=== PATIENT | female | born 1935 | race Caucasian/White ===

== ENCOUNTER 2017-09-13 20:43 | Emergency (ER) | payer MEDICARE, OTHER ==
[2017-09-13] MEDS ORDERED: Diphtheria/Tetanus Toxoids,Adult (Td) 0.5 ML Syringe IM ONE (21:07)
--- NOTE | 2017-09-13 21:24 | EDM.PDOC ---
ED HPI GENERAL MEDICAL PROBLEM - General Chief Complaint: Head Injury Stated Complaint: PT FELL AND HURT HEAD Time Seen by Provider: 09/13/17 21:00 Source of Information: Reports: Patient, Family, RN - History of Present Illness INITIAL COMMENTS - FREE TEXT/NARRATIVE: She tripped and fell about 7 hours ago. she suffered a scalp laceration. NO LOC. NO impaired mentation noted no vomiting no gait disturbance. - Related Data Allergies Allergy/AdvReac Type Severity Reaction Status Date / Time morphine Allergy Vomiting Verified 09/13/17 20:53 Home Meds: Home Meds Lisinopril 30 mg PO DAILY 07/14/14 [History] Metoprolol Succinate [Toprol XL 50mg] 50 mg PO DAILY 07/14/14 [History] rOPINIRole [Requip XL] 2 mg PO DAILY 07/14/14 [History] Past Medical History - Past Health History Medical/Surgical History: Denies Medical/Surgical History Cardiovascular 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: Hypertension, Other (See Below) Other Cardiovascular History: elevated heart rate Respiratory 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: None Gastrointestinal 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: None Neurological 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: None Endocrine/Metabolic 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: None Dermatologic 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: None - Past Surgical History GI Surgical 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: None Endocrine Surgical 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: None Social & Family History - Tobacco Use Smoking Status *Q: Current Every Day Smoker Years of Tobacco use: 55 Packs/Tins Daily: 0.4 - Alcohol Use Days Per Week of Alcohol Use: 0 - Recreational Drug Use Recreational Drug Use: No ED ROS GENERAL - Review of Systems Review Of Systems: See Below (no other injury reported.) ED EXAM, HEAD INJURY - Physical Exam Exam: See Below Text/Narrative:: alert neck supple and non tender gait normal extremities without pain normal speech no facial or oral injuries EOMS normal mid parietal scalp with a 2 cm transverse laceration to subcutaneous tissue. ED LACERATION/WOUND & SAMANTHA PROC - Additional/Other Procedure(s) Other (Free Text) Procedure(s): wound cleansed and closed adequately with dermabond Course - Vital Signs Last Recorded V/S: Last Vital Signs Temp 97 F 09/13/17 20:54 Pulse 65 09/13/17 20:54 Resp 20 09/13/17 20:54 BP 140/66 09/13/17 20:54 Pulse Ox 98 09/13/17 20:54 - Orders/Labs/Meds Orders: Active Orders 24 hr Category Date Time Status Vaccines to be Administered [RC] PER UNIT ROUTINE Care 09/13/17 21:07 Active Head wo Cont [CT] Stat Exams 09/13/17 20:58 Taken Meds: Medications Discontinued Medications Generic Name Dose Route Start Last Admin Trade Name Sharmin PRN Reason Stop Dose Admin Octyl Cyanoacrylate 1 applic 09/13/17 21:53 09/13/17 22:03 Dermabond Advance TOP 09/13/17 21:54 1 applic ONETIME ONE Administration Tetanus/Diphtheria Toxoids 0.5 ml 09/13/17 21:07 09/13/17 21:29 Tenivac IM 09/13/17 21:08 0.5 ml .ONCE ONE Administration Departure - Departure Time of Disposition: 22:05 Disposition: Home, Self-Care 01 Condition: Fair Clinical Impression: Laceration of scalp - Discharge Information Referrals: PCP,None [Primary Care Provider] - Forms: ED Department Discharge Additional Instructions: may gently wash hair tomorrow recheck for vomiting, confusion or signs of infection - My Orders Last 24 Hours: My Active Orders 09/13/17 20:58 Head wo Cont [CT] Stat 09/13/17 21:07 Vaccines to be Administered [RC] PER UNIT ROUTINE - Assessment/Plan Last 24 Hours: My Active Orders 09/13/17 20:58 Head wo Cont [CT] Stat 09/13/17 21:07 Vaccines to be Administered [RC] PER UNIT ROUTINE
[2017-09-13] MEDS ORDERED: Octyl 2-Cyanoacrylate 1 Tube TOP ONE (21:53)
--- NOTE | 2017-09-14 11:07 | CT ---
EXAM DATE: 09/13/17 PATIENT'S AGE: 81 Patient: RADHA PETER Facility: [place], [place] Site . Site : [id number] Study: CT Head [id number] 9:27:50 PM Ordering Physician: Ana Reyes Final Report: INDICATION: fall, injury, laceration to scalp CT HEAD WITHOUT CONTRAST TECHNIQUE: Multiple axial CT images were performed through the head without intravenous contrast administration. COMPARISON: No previous studies are currently available for comparison. FINDINGS: No acute intracranial hemorrhage is identified. No extra-axial collections are evident and there is no mass effect or midline shift. There is mild diffuse age-related brain atrophy. Ventricular size and configuration are within normal limits for the patient`s age. Sibley-white differentiation is within normal limits. There is patchy hypodensity in the periventricular white matter, a nonspecific finding which most likely reflects chronic small vessel ischemic change. Intracranial atherosclerotic vascular calcifications are noted. There is a very small scalp hematoma over the left forehead and a small scalp laceration anterior to the vertex. Osseous structures are within normal limits and no fractures are seen. Included portions of the paranasal sinuses and mastoid air cells are normally aerated. IMPRESSION: 1. No acute intracranial abnormality identified. 2. Small frontal scalp hematoma and laceration. No fracture identified. 3. Age-related brain atrophy, white matter hypodensity consistent with chronic small vessel ischemic change, and intracranial atherosclerotic vascular calcifications. CARLOS SHARP MD [employer] Dictated by Henry Sharp MD @ 09/13/2017 9:53:46 PM Dictated by: Henry Sharp MD @ 09/13/2017 21:56:01 (Electronic Signature) Report Signed by Proxy. [facility]
== END 2017-09-13 22:13 | disposition home or self-care (01) ==
LOC: MW.ED 20:43
DX: S01.01XA Laceration without foreign body of scalp, initial encounter (principal); F17.210 Nicotine dependence, cigarettes, uncomplicated; I10 Essential (primary) hypertension; Z79.899 Other long term (current) drug therapy; Z88.5 Allergy status to narcotic agent; Z23 Encounter for immunization; W01.0XXA Fall on same level from slipping, tripping and stumbling without subsequent striking against object, initial encounter
CPT/HCPCS: 12001; 70450; 90714; 99283; A9270; 90471

== ENCOUNTER 2019-08-04 15:58 | Emergency (ER) | payer MEDICARE, OTHER ==
[2019-08-04] MEDS ORDERED: Albuterol/Ipratropium 3.0-0.5 MG/3 ML Neb Soln NEB ONE (16:13)
[2019-08-04] MEDS ORDERED: methylPREDNISolone Sodium Succinate 125 MG/2 ML SDV IVPUSH ONE (16:21)
--- NOTE | 2019-08-04 16:26 | EDM.PDOC ---
ED HPI GENERAL MEDICAL PROBLEM - General Chief Complaint: Respiratory Problem Stated Complaint: SHORTNESS OF BREATH, COUGH Time Seen by Provider: 08/04/19 16:03 Source of Information: Reports: Patient History Limitations: Reports: No Limitations - History of Present Illness INITIAL COMMENTS - FREE TEXT/NARRATIVE: HISTORY AND PHYSICAL: History of present illness: Patient is an 83-year-old female presents to the ED today with concern of shortness of breath and cough 3-4 days. Patient states she has a history of COPD and has home oxygen at home but does not use this unless needed. Patient states that she hasn't needed the oxygen and quite some time except over the past couple days with the onset of the cough. Patient states she does continue to smoke but has not been able to since onset of symptoms. Patient states she also feels more tired than usual but denies any other symptoms or concerns. Patient denies fever, chills, chest pain. Denies headache, neck stiff ness, change in vision, syncope, or near syncope. Denies nausea, vomiting, abdominal pain, diarrhea, constipation, or dysuria. Has not noted any blood in urine or stool. Patient has been eating and drinking appropriately. Review of systems: As per history of present illness and below otherwise all systems reviewed and negative. Past medical history: As per history of present illness and as reviewed below otherwise noncontributory. Surgical history: As per history of present illness and as reviewed below otherwise noncontributory. Social history: See social history for further information Family history: As per history of present illness and as reviewed below otherwise noncontributory. Physical exam: General: Patient is alert, oriented, and in no acute distress. Patient sitting comfortably on exam table. HEENT: Atraumatic, normocephalic, pupils equal and reactive bilaterally, negative for conjunctival pallor or scleral icterus, mucous membranes moist, TMs normal bilaterally, throat clear, neck supple, nontender, trachea midline. No drooling or trismus noted. No meningeal signs. No hot potato voice noted. Lungs: Tachypneic, diminished lung sounds, but clear to auscultation, breath sounds equal bilaterally, chest nontender. Heart: Distant but S1S2, regular rate and rhythm without overt murmur Abdomen: Soft, nondistended, nontender. Negative for masses or hepatosplenomegaly. Negative for costovertebral tenderness. Pelvis: Stable nontender. Genitourinary: Deferred. Rectal: Deferred. Skin: Intact, warm, dry. No lesions or rashes noted. Extremities: Atraumatic, negative for cords or calf pain. Neurovascular unremarkable. 2+ bilateral pitting edema of lower extremities to the knees. Neuro: Awake, alert, oriented. Cranial nerves II through XII unremarkable. Cerebellum unremarkable. Motor and sensory unremarkable throughout. Exam nonfocal. Notes: Dr. Conner verbally involved in patient care. 81% on RA upon arrival. Placed on 4L NC and Duoneb started. Patient now 93% on 4L NC. Admission for observation was offered but patient refuses. All risks versus benefits discussed with patient and expresses understanding. Patient says she has a nebulizer machine at home as well and she has her albuterol inhalers. She also has home oxygen available to her. Voices understanding and is agreeable to plan of care. Denies any further questions or concerns at this time. Diagnostics: CBC, CMP, EKG, chest x-ray, BNP, troponin, PT/INR (Patient refuses UA) Therapeutics: DuoNeb, oxygen, Solumedrol Prescription: Azithromycin, Prednisone, Duonebs Impression: COPD exacerbation Hypoxia Plan: 1. Use your home oxygen at 4 L continuously. 2. Take medication as prescribed. You can also use Tylenol as directed for pain and discomfort. 3. Follow up with your primary care provider in one week as discussed. Return to the ED as needed and as discussed and if symptoms worsen or persist. Definitive disposition and diagnosis as appropriate pending reevaluation and review of above. - Related Data Allergies Allergy/AdvReac Type Severity Reaction Status Date / Time morphine Allergy Vomiting Verified 08/04/19 16:16 Home Meds: Home Meds Lisinopril 30 mg PO DAILY 07/14/14 [History] Metoprolol Succinate [Toprol XL 50mg] 50 mg PO DAILY 07/14/14 [History] rOPINIRole [Requip XL] 2 mg PO DAILY 07/14/14 [History] Past Medical History - Past Health History Medical/Surgical History: Denies Medical/Surgical History Cardiovascular 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: Hypertension, Other (See Below) Other Cardiovascular History: elevated heart rate Respiratory 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: Bronchitis, Recurrent, COPD Gastrointestinal 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: None Neurological 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: None Endocrine/Metabolic 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: None Oncologic (Cancer) 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: None Dermatologic 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: None - Infectious Disease History Infectious Disease 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: Chicken Pox, Measles, Mumps - Past Surgical History GI Surgical 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: None Endocrine Surgical 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: None Social & Family History - Family History Family Medical History: Noncontributory - Tobacco Use Smoking Status *Q: Current Every Day Smoker Years of Tobacco use: 60 Packs/Tins Daily: 0.5 - Caffeine Use Caffeine Use: Reports: None - Recreational Drug Use Recreational Drug Use: No ED ROS GENERAL - Review of Systems Review Of Systems: ROS reveals no pertinent complaints other than HPI. ED EXAM, GENERAL - Physical Exam Exam: See Below (See dictation) Course - Vital Signs Last Recorded V/S: Last Vital Signs Temp 36.7 C 08/04/19 16:14 Pulse 96 08/04/19 16:56 Resp 20 08/04/19 16:14 BP 117/62 08/04/19 16:56 Pulse Ox 93 L 08/04/19 16:56 - Orders/Labs/Meds Orders: Active Orders 24 hr Category Date Time Status EKG Documentation Completion [RC] STAT Care 08/04/19 16:13 Active RT Aerosol Therapy [RC] ASDIRECTED Care 08/04/19 16:13 Active UA RFX VANI AND CULT IF INDIC [URIN] Stat Lab 08/04/19 16:22 Stop Req Saline Lock Insert [OM.PC] Stat Oth 08/04/19 16:18 Ordered Labs: Laboratory Tests 08/04/19 08/04/19 08/04/19 Range/Units 16:30 16:30 16:30 WBC 11.75 H (4.0-11.0) K/uL RBC 4.50 (4.30-5.90) M/uL Hgb 13.4 (12.0-16.0) g/dL Hct 41.5 (36.0-46.0) % MCV 92.2 (80.0-98.0) fL MCH 29.8 (27.0-32.0) pg MCHC 32.3 (31.0-37.0) g/dL RDW Std Deviation 49.1 (28.0-62.0) fl RDW Coeff of Dorinda 14 (11.0-15.0) % Plt Count 120 L (150-400) K/uL MPV 13.50 H (7.40-12.00) fL Neut % (Auto) 83.7 H (48.0-80.0) % Lymph % (Auto) 6.3 L (16.0-40.0) % Banner % (Auto) 9.6 (0.0-15.0) % Eos % (Auto) 0.2 (0.0-7.0) % Baso % (Auto) 0.2 (0.0-1.5) % Neut # (Auto) 9.8 H (1.4-5.7) K/uL Lymph # (Auto) 0.7 (0.6-2.4) K/uL Banner # (Auto) 1.1 H (0.0-0.8) K/uL Eos # (Auto) 0.0 (0.0-0.7) K/uL Baso # (Auto) 0.0 (0.0-0.1) K/uL Nucleated RBC % 0.0 /100WBC Nucleated RBCs # 0 K/uL INR 1.12 Sodium 139 (136-145) mmol/L Potassium 3.5 (3.5-5.1) mmol/L Chloride 103 (98-107) mmol/L Carbon Dioxide 27.6 (21.0-32.0) mmol/L BUN 29 H (7.0-18.0) mg/dL Creatinine 1.1 H (0.6-1.0) mg/dL Est Cr Clr Drug Dosing 37.02 mL/min Estimated GFR (MDRD) 47.3 ml/min Glucose 124 H (74-106) mg/dL Calcium 8.7 (8.5-10.1) mg/dL Total Bilirubin 1.3 H (0.2-1.0) mg/dL AST 15 (15-37) IU/L ALT 13 L (14-63) IU/L Alkaline Phosphatase 120 H (46-116) U/L Troponin I < 0.050 (0.000-0.056) ng/mL B-Natriuretic Peptide (<100) PG/ML Total Protein 6.8 (6.4-8.2) g/dL Albumin 2.9 L (3.4-5.0) g/dL Globulin 3.9 (2.6-4.0) g/dL Albumin/Globulin Ratio 0.7 L (0.9-1.6) 08/04/19 Range/Units 16:30 WBC (4.0-11.0) K/uL RBC (4.30-5.90) M/uL Hgb (12.0-16.0) g/dL Hct (36.0-46.0) % MCV (80.0-98.0) fL MCH (27.0-32.0) pg MCHC (31.0-37.0) g/dL RDW Std Deviation (28.0-62.0) fl RDW Coeff of Dorinda (11.0-15.0) % Plt Count (150-400) K/uL MPV (7.40-12.00) fL Neut % (Auto) (48.0-80.0) % Lymph % (Auto) (16.0-40.0) % Banner % (Auto) (0.0-15.0) % Eos % (Auto) (0.0-7.0) % Baso % (Auto) (0.0-1.5) % Neut # (Auto) (1.4-5.7) K/uL Lymph # (Auto) (0.6-2.4) K/uL Banner # (Auto) (0.0-0.8) K/uL Eos # (Auto) (0.0-0.7) K/uL Baso # (Auto) (0.0-0.1) K/uL Nucleated RBC % /100WBC Nucleated RBCs # K/uL INR Sodium (136-145) mmol/L Potassium (3.5-5.1) mmol/L Chloride (98-107) mmol/L Carbon Dioxide (21.0-32.0) mmol/L BUN (7.0-18.0) mg/dL Creatinine (0.6-1.0) mg/dL Est Cr Clr Drug Dosing mL/min Estimated GFR (MDRD) ml/min Glucose (74-106) mg/dL Calcium (8.5-10.1) mg/dL Total Bilirubin (0.2-1.0) mg/dL AST (15-37) IU/L ALT (14-63) IU/L Alkaline Phosphatase (46-116) U/L Troponin I (0.000-0.056) ng/mL B-Natriuretic Peptide 189 H (<100) PG/ML Total Protein (6.4-8.2) g/dL Albumin (3.4-5.0) g/dL Globulin (2.6-4.0) g/dL Albumin/Globulin Ratio (0.9-1.6) Meds: Medications Discontinued Medications Generic Name Dose Route Start Last Admin Trade Name Sharmin PRN Reason Stop Dose Admin Albuterol/Ipratropium 3 ml 08/04/19 16:13 08/04/19 16:19 Duoneb 3.0-0.5 Mg/3 Ml NEB 08/04/19 16:14 3 ml ONETIME ONE Administration Methylprednisolone Sodium Succinate 125 mg 08/04/19 16:21 08/04/19 16:47 Solu-Medrol IVPUSH 08/04/19 16:22 125 mg ONETIME ONE Administration Departure - Departure Time of Disposition: 17:53 Disposition: Home, Self-Care 01 Clinical Impression: COPD exacerbation, Hypoxia - Discharge Information Instructions: Chronic Obstructive Pulmonary Disease Exacerbation, [id number] , Hypoxia Referrals: PCP,Unknown [Primary Care Provider] - Forms: ED Department Discharge Additional Instructions: The following information is given to patients seen in the emergency department who are being discharged to home. This information is to outline your options for follow-up care. We provide all patients seen in our emergency department with a follow-up referral. The need for follow-up, as well as the timing and circumstances, are variable depending upon the specifics of your emergency department visit. If you don't have a primary care physician on staff, we will provide you with a referral. We always advise you to contact your personal physician following an emergency department visit to inform them of the circumstance of the visit and for follow-up with them and/or the need for any referrals to a consulting specialist. The emergency department will also refer you to a specialist when appropriate. This referral assures that you have the opportunity for follow-up care with a specialist. All of these measure are taken in an effort to provide you with optimal care, which includes your follow-up. Under all circumstances we always encourage you to contact your private physician who remains a resource for coordinating your care. When calling for follow-up care, please make the office aware that this follow-up is from your recent emergency room visit. If for any reason you are refused follow-up, please contact the [facility] Emergency Department at and asked to speak to the emergency department charge nurse. [facility] [address] [place] [address] [facility] [address] [place] [id number] 1. Use your home oxygen at 4 L continuously. 2. Take medication as prescribed. You can also use Tylenol as directed for pain and discomfort. 3. Follow up with your primary care provider in one week as discussed. Return to the ED as needed and as discussed and if symptoms worsen or persist. - My Orders Last 24 Hours: My Active Orders 08/04/19 16:13 EKG Documentation Completion [RC] STAT RT Aerosol Therapy [RC] ASDIRECTED 08/04/19 16:18 Saline Lock Insert [OM.PC] Stat 08/04/19 16:22 UA RFX VANI AND CULT IF INDIC [URIN] Stat - Assessment/Plan Last 24 Hours: My Active Orders 08/04/19 16:13 EKG Documentation Completion [RC] STAT RT Aerosol Therapy [RC] ASDIRECTED 08/04/19 16:18 Saline Lock Insert [OM.PC] Stat 08/04/19 16:22 UA RFX VANI AND CULT IF INDIC [URIN] Stat
--- NOTE | 2019-08-04 17:23 | CR ---
INDICATION: Shortness of breath HISTORY: Shortness of breath. COMPARISON: None. TECHNIQUE: Chest one-view portable. FINDINGS: Interstitial type opacities are present in both lungs, most confluent in the right lower lung zone. There is an indeterminate, 2.4 cm opacity inferior to the left scapula laterally. CT of the chest may be obtained to clarify this finding. Atherosclerotic calcifications of the thoracic aorta. Heart size is enlarged, but may be exaggerated by portable technique. Lateral costophrenic sulci are sharp. IMPRESSION: 1. Indeterminate nodular opacity in the left mid lung zone. Consider CT scan to further assess. 2. Course, asymmetric interstitial type opacities, which may reflect pulmonary fibrosis. No comparison exam is available for review. Dictated by Gonzalo Meng MD @ 08/04/2019 5:21:13 PM Dictated by: Gonzalo Meng MD @ 08/04/2019 17:21:22 (Electronically Signed)
[2019-08-04 17:27] LABS: BLOOD UREA NITROGEN,BUN 29 mg/dL (7.0-18.0); CARBON DIOXIDE,CO2 27.6 mmol/L (21.0-32.0); CHLORIDE,CL 103 mmol/L (98-107); GLUCOSE RANDOM 124 mg/dL (74-106); POTASSIUM,K 3.5 mmol/L (3.5-5.1); SODIUM,NA 139 mmol/L (136-145)
== END 2019-08-04 18:13 | disposition home or self-care (01) ==
LOC: MW.ED 15:58
DX: J44.1 Chronic obstructive pulmonary disease with (acute) exacerbation (principal); R09.02 Hypoxemia; I10 Essential (primary) hypertension; F17.210 Nicotine dependence, cigarettes, uncomplicated; Z88.5 Allergy status to narcotic agent; Z79.899 Other long term (current) drug therapy
CPT/HCPCS: 71045; 80053; 83880; 84484; 85025; 85610; 94640; 96374; 99285; J2930; 93005; 99284; J7620-GY

== ENCOUNTER 2019-08-08 17:51 | Inpatient (IN) | payer MEDICARE, OTHER ==
[2019-08-08] MEDS ORDERED: Sodium Chloride 0.9% 2.5 ML Syringe FLUSH PRN (17:58)
[2019-08-08] MEDS ORDERED: Sodium Chloride 0.9% 10 ML Syringe FLUSH PRN (17:58)
--- NOTE | 2019-08-08 18:02 | EDM.PDOC ---
ED HPI GENERAL MEDICAL PROBLEM - General Stated Complaint: PT WEAK Time Seen by Provider: 08/08/19 17:58 Source of Information: Reports: Patient History Limitations: Reports: No Limitations - History of Present Illness INITIAL COMMENTS - FREE TEXT/NARRATIVE: HISTORY AND PHYSICAL: History of present illness: Patient is an 83-year-old female who presents to the emergency room with complaints of weakness and shortness of breath. Patient was seen in our emergency room on 08/04/19 for these complaints and had been offered admission for COPD exacerbation and pneumonia. She declined admission and was discharged to home with azithromycin and Prednisone. She states since being home she has had increased weakness and has not felt any improvement. Patient denies any fever, chills, headache, change in vision, syncope or near syncope. Denies any chest pain, back pain, or neck pain. Denies any abdominal pain, nausea, vomiting , diarrhea, constipation or dysuria. Has not noted any blood in urine or stool. Patient has had decreased oral intake. Review of systems: As per history of present illness and below otherwise all systems reviewed and negative. Past medical history: As per history of present illness and as reviewed below otherwise noncontributory. Surgical history: As per history of present illness and as reviewed below otherwise noncontributory. Social history: See social history for further information Family history: As per history of present illness and as reviewed below otherwise noncontributory. Physical exam: General: Well-developed, alert and oriented 83-year-old female. Nontoxic appearing and in no acute distress. HEENT: Atraumatic, normocephalic, pupils equal and reactive bilaterally, negative for conjunctival pallor or scleral icterus, mucous membranes moist, trachea midline. No drooling or trismus noted. No meningeal signs. No hot potato voice noted. Lungs: Diminished throughout, dry nonproductive cough noted, chest nontender. Heart: S1S2, regular rate and rhythm without overt murmur Abdomen: Soft, nondistended, nontender. Negative for masses or hepatosplenomegaly. Negative for costovertebral tenderness. Pelvis: Stable nontender. Skin: Intact, warm, dry. No lesions or rashes noted. Extremities: Atraumatic, moves all extremities per self without difficulty or deficits, no pedal edema noted. Neurovascular unremarkable. Neuro: Awake, alert, oriented. Cranial nerves II through XII unremarkable. Cerebellum unremarkable. Motor and sensory unremarkable throughout. Exam nonfocal. Notes: Oxygen sats are 79% on room air. Patient does bump up to low 90s with 2 L per nasal cannula. Chest x-rays shows no changes, moderate angular infiltrate in the right lung base. 2.6 cm nodular density in the left lateral lower chest. Dr. Solares was consulted on this case. He is agreeable to admitting this patient for further care and management. Patient is aware and agreeable. She denies any further questions, vital signs remain stable. Diagnostics: CBC, CMP, Blood Cultures, ABG, CXR, Troponin, EKG, UA Therapeutics: IV fluids, Solu-Medrol, Duo Neb, Rocephin Impression: RLQ pneumonia Hypoxemia Plan: Inpatient admission to med/surg Definitive disposition and diagnosis as appropriate pending reevaluation and review of above. - Related Data Allergies Allergy/AdvReac Type Severity Reaction Status Date / Time morphine Allergy Vomiting Verified 08/08/19 18:13 Home Meds: Home Meds Lisinopril 30 mg PO DAILY 07/14/14 [History] Metoprolol Succinate [Toprol XL 50mg] 50 mg PO DAILY 07/14/14 [History] rOPINIRole [Requip XL] 2 mg PO DAILY 07/14/14 [History] Past Medical History - Past Health History Medical/Surgical History: Denies Medical/Surgical History Cardiovascular 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: Hypertension, Other (See Below) Other Cardiovascular History: elevated heart rate Respiratory 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: Bronchitis, Recurrent, COPD Gastrointestinal 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: None Neurological 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: None Endocrine/Metabolic 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: None Oncologic (Cancer) 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: None Dermatologic 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: None - Infectious Disease History Infectious Disease 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: Chicken Pox, Measles, Mumps - Past Surgical History GI Surgical 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: None Endocrine Surgical 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: None Social & Family History - Family History Family Medical History: Noncontributory - Caffeine Use Caffeine Use: Reports: None ED ROS GENERAL - Review of Systems Review Of Systems: ROS reveals no pertinent complaints other than HPI. ED EXAM, GENERAL - Physical Exam Exam: See Below (See dictation) Course - Vital Signs Last Recorded V/S: Last Vital Signs Temp 97.7 F 08/08/19 18:10 Pulse 78 08/08/19 19:04 Resp 20 08/08/19 19:04 BP 151/88 H 08/08/19 19:04 Pulse Ox 95 08/08/19 19:04 - Orders/Labs/Meds Orders: Active Orders 24 hr Category Date Time Status Admission Status [Patient Status] [ADT] Stat ADT 08/08/19 18:48 Active EKG Documentation Completion [RC] STAT Care 08/08/19 17:58 Active RT Aerosol Therapy [RC] ASDIRECTED Care 08/08/19 18:30 Active CULTURE BLOOD [BC] Stat Lab 08/08/19 18:22 Results CULTURE BLOOD [BC] Stat Lab 08/08/19 18:40 Received UA RFX VANI AND CULT IF INDIC [URIN] Stat Lab 08/08/19 17:58 Ordered Sodium Chloride 0.9% [Normal Saline] 1,000 ml Med 08/08/19 18:30 Active IV STAT Sodium Chloride 0.9% [Saline Flush] Med 08/08/19 17:58 Active 10 ml FLUSH ASDIRECTED PRN Sodium Chloride 0.9% [Saline Flush] Med 08/08/19 17:58 Active 2.5 ml FLUSH ASDIRECTED PRN Blood Culture x2 Reflex Set [OM.PC] Stat Oth 08/08/19 17:59 Ordered Saline Lock Insert [OM.PC] Stat Oth 08/08/19 17:58 Ordered Medication Orders Sodium Chloride (Normal Saline) 1,000 mls @ 125 mls/hr IV STAT ONE Stop: 08/09/19 02:29 Last Admin: 08/08/19 18:35 Dose: 125 mls/hr Sodium Chloride (Saline Flush) 10 ml FLUSH ASDIRECTED PRN PRN Reason: Keep Vein Open Last Admin: 08/08/19 18:35 Dose: 10 ml Sodium Chloride (Saline Flush) 2.5 ml FLUSH ASDIRECTED PRN PRN Reason: Keep Vein Open Last Admin: 08/08/19 18:35 Dose: 2.5 ml Labs: Laboratory Tests 08/08/19 08/08/19 08/08/19 Range/Units 18:22 18:22 18:45 WBC 10.30 (4.0-11.0) K/uL RBC 4.59 (4.30-5.90) M/uL Hgb 13.3 (12.0-16.0) g/dL Hct 42.4 (36.0-46.0) % MCV 92.4 (80.0-98.0) fL MCH 29.0 (27.0-32.0) pg MCHC 31.4 (31.0-37.0) g/dL RDW Std Deviation 47.4 (28.0-62.0) fl RDW Coeff of Dorinda 14 (11.0-15.0) % Plt Count 167 (150-400) K/uL MPV 12.20 H (7.40-12.00) fL Neut % (Auto) 78.0 (48.0-80.0) % Lymph % (Auto) 13.8 L (16.0-40.0) % [place] % (Auto) 7.6 (0.0-15.0) % Eos % (Auto) 0.4 (0.0-7.0) % Baso % (Auto) 0.2 (0.0-1.5) % Neut # (Auto) 8.0 H (1.4-5.7) K/uL Lymph # (Auto) 1.4 (0.6-2.4) K/uL [place] # (Auto) 0.8 (0.0-0.8) K/uL Eos # (Auto) 0.0 (0.0-0.7) K/uL Baso # (Auto) 0.0 (0.0-0.1) K/uL Nucleated RBC % 0.0 /100WBC Nucleated RBCs # 0 K/uL ABG pH 7.426 (7.35-7.45) ABG pCO2 50 H (35-45) mmHG ABG pO2 85 (75-100) mmHG ABG HCO3 33 H (22-26) mEq/L ABG Total CO2 29.7 ABG Base Excess 7.1 H (-2.0-2.0) Sodium 142 (136-145) mmol/L Potassium 4.0 (3.5-5.1) mmol/L Chloride 103 (98-107) mmol/L Carbon Dioxide 30.6 (21.0-32.0) mmol/L BUN 17 (7.0-18.0) mg/dL Creatinine 0.8 (0.6-1.0) mg/dL Est Cr Clr Drug Dosing 50.90 mL/min Estimated GFR (MDRD) > 60.0 ml/min Glucose 91 (74-106) mg/dL Calcium 8.7 (8.5-10.1) mg/dL Total Bilirubin 0.5 (0.2-1.0) mg/dL AST 21 (15-37) IU/L ALT 18 (14-63) IU/L Alkaline Phosphatase 94 (46-116) U/L Troponin I < 0.050 (0.000-0.056) ng/mL Total Protein 6.7 (6.4-8.2) g/dL Albumin 2.8 L (3.4-5.0) g/dL Globulin 3.9 (2.6-4.0) g/dL Albumin/Globulin Ratio 0.7 L (0.9-1.6) Meds: Medications Generic Name Dose Route Start Last Admin Trade Name Vinhq PRN Reason Stop Dose Admin Sodium Chloride 1,000 mls @ 125 mls/hr 08/08/19 18:30 08/08/19 18:35 Normal Saline IV 08/09/19 02:29 125 mls/hr STAT ONE Administration Sodium Chloride 10 ml 08/08/19 17:58 08/08/19 18:35 Saline Flush FLUSH 10 ml ASDIRECTED PRN Administration Keep Vein Open Sodium Chloride 2.5 ml 08/08/19 17:58 08/08/19 18:35 Saline Flush FLUSH 2.5 ml ASDIRECTED PRN Administration Keep Vein Open Discontinued Medications Generic Name Dose Route Start Last Admin Trade Name Sharmin PRN Reason Stop Dose Admin Albuterol/Ipratropium 3 ml 08/08/19 18:30 08/08/19 18:35 Duoneb 3.0-0.5 Mg/3 Ml NEB 08/08/19 18:31 3 ml ONETIME ONE Administration Ceftriaxone Sodium/Dextrose 1 50 mls @ 100 mls/hr 08/08/19 18:40 08/08/19 18: 48 gm/ Premix IV 08/08/19 19:09 100 mls/hr ONETIME ONE Administration Methylprednisolone Sodium Succinate 125 mg 08/08/19 18:30 08/08/19 18:35 Solu-Medrol IVPUSH 08/08/19 18:31 125 mg ONETIME ONE Administration Departure - Departure Time of Disposition: 19:22 Disposition: Admitted As Inpatient 65 Clinical Impression: Hypoxia Right lower lobe pneumonia Qualifiers: Pneumonia type: due to unspecified organism Qualified Code(s): J18.1 - Lobar pneumonia, unspecified organism - Discharge Information Referrals: Charlie Sepulveda MD [Primary Care Provider] - - My Orders Last 24 Hours: My Active Orders 08/08/19 17:58 EKG Documentation Completion [RC] STAT UA RFX VANI AND CULT IF INDIC [URIN] Stat Sodium Chloride 0.9% [Saline Flush] 10 ml FLUSH ASDIRECTED PRN Sodium Chloride 0.9% [Saline Flush] 2.5 ml FLUSH ASDIRECTED PRN Saline Lock Insert [OM.PC] Stat 08/08/19 17:59 Blood Culture x2 Reflex Set [OM.PC] Stat 08/08/19 18:22 CULTURE BLOOD [BC] Stat 08/08/19 18:30 RT Aerosol Therapy [RC] ASDIRECTED Sodium Chloride 0.9% [Normal Saline] 1,000 ml IV STAT 08/08/19 18:40 CULTURE BLOOD [BC] Stat 08/08/19 18:48 Admission Status [Patient Status] [ADT] Stat - Assessment/Plan Last 24 Hours: My Active Orders 08/08/19 17:58 EKG Documentation Completion [RC] STAT UA RFX VANI AND CULT IF INDIC [URIN] Stat Sodium Chloride 0.9% [Saline Flush] 10 ml FLUSH ASDIRECTED PRN Sodium Chloride 0.9% [Saline Flush] 2.5 ml FLUSH ASDIRECTED PRN Saline Lock Insert [OM.PC] Stat 08/08/19 17:59 Blood Culture x2 Reflex Set [OM.PC] Stat 08/08/19 18:22 CULTURE BLOOD [BC] Stat 08/08/19 18:30 RT Aerosol Therapy [RC] ASDIRECTED Sodium Chloride 0.9% [Normal Saline] 1,000 ml IV STAT 08/08/19 18:40 CULTURE BLOOD [BC] Stat 08/08/19 18:48 Admission Status [Patient Status] [ADT] Stat
[2019-08-08] MEDS ORDERED: methylPREDNISolone Sodium Succinate 125 MG/2 ML SDV IVPUSH ONE (18:30)
[2019-08-08] MEDS ORDERED: Sodium Chloride 0.9% 1,000 ML IV ONE (18:30)
[2019-08-08] MEDS ORDERED: Albuterol/Ipratropium 3.0-0.5 MG/3 ML Neb Soln NEB ONE (18:30)
[2019-08-08] MEDS ORDERED: cefTRIAXone 1 GM in Premix Bag 1 BAG IV ONE (18:40)
--- NOTE | 2019-08-08 18:51 | CR ---
HISTORY: Shortness of breath COMPARISON: 08/04/2019 FINDINGS: A portable erect AP view of the chest was obtained at 1822 hours. There has been no change in the appearance of the chest. There continue to be moderate reticular infiltrate in the right lung base and milder reticular infiltrates throughout the rest of the right lung and in the left perihilar lung. There is no change in the well-circumscribed calcific density in the left lateral lower lung measuring up to 2.6 centimeters in diameter. This could be a calcified granuloma or a calcified pleural plaque. Recommend correlation with two view examination of the chest along with shallow oblique views to further characterize this finding. It is possible that this is something on the patient`s skin, so marking of any nodules on the skin would be helpful. The heart remains mildly enlarged. The mediastinum is otherwise normal in appearance. Again seen is mild scoliosis of the inferior thoracic spine convex towards the right. 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 IMPRESSION: No change in the appearance of the chest. No change in moderate reticular infiltrate in the right lung base with milder reticular infiltrate throughout the rest of the right lung and in the left perihilar region. Again seen is the nodular 2.6 centimeter density in the left lateral lower chest. Please see the discussion above. Dictated by Sandeep Moser MD @ Aug 08 2019 6:44PM Signed by Dr. Sandeep Moser @ Aug 08 2019 6:49PM
[2019-08-08 19:11] LABS: BLOOD UREA NITROGEN,BUN 17 mg/dL (7.0-18.0); CARBON DIOXIDE,CO2 30.6 mmol/L (21.0-32.0); CHLORIDE,CL 103 mmol/L (98-107); GLUCOSE RANDOM 91 mg/dL (74-106); SODIUM,NA 142 mmol/L (136-145)
[2019-08-08] MEDS ORDERED: Albuterol/Ipratropium 3.0-0.5 MG/3 ML Neb Soln NEB PRN (21:25)
[2019-08-08] MEDS ORDERED: Acetaminophen 325 MG Tab PO PRN (21:25)
--- NOTE | 2019-08-08 21:31 | PCM.HP.2 ---
H&P History of Present Illness - General Date of Service: 08/08/19 Admit Problem/Dx: Admission Diagnosis/Problem Admission Diagnosis/Problem Pneumonia - History of Present Illness Initial Comments - Free Text/Narative: 83 yo female with pmh of HTN and COPD who presents with one week history of nonproductive cough, shortness of breath, fevers and generalized weakness. She was seen in the ED two day sago and declined admision she was sent home with azithromycin and prednisone. She is back in the ED complaining of same symptoms but is agreeable for admission for one night. - Related Data Allergies/Adverse Reactions: Allergies Allergy/AdvReac Type Severity Reaction Status Date / Time morphine Allergy Vomiting Verified 08/08/19 20:39 Home Medications: Home Meds Lisinopril 30 mg PO DAILY 07/14/14 [History] Metoprolol Succinate [Toprol XL 50mg] 50 mg PO DAILY 07/14/14 [History] Albuterol [Ventolin HFA] 1 puff .XX Q4HR PRN 08/09/19 [History] Azithromycin 250 mg PO DAILY 08/09/19 [History] Diclofenac Sodium [Diclofenac Sodium ER] 50 mg PO TID PRN 08/09/19 [History] Ipratropium/Albuterol Sulfate [Iprat-Albut 0.5-3(2.5) mg/3 ml] 3 ml IH Q4HR PRN 08/09/19 [History] predniSONE [Prednisone] 20 mg PO DAILY 08/09/19 [History] rOPINIRole [Requip] 2 mg PO BID 08/09/19 [History] Past Medical History - Past Health History Medical/Surgical History: Denies Medical/Surgical History Cardiovascular 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: Hypertension, Other (See Below) Other Cardiovascular History: elevated heart rate Respiratory 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: Bronchitis, Recurrent, COPD, SOB Gastrointestinal 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: None Genitourinary 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: None [employer] 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: Musculoskeletal 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: Osteoarthritis Neurological 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: None Endocrine/Metabolic 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: None Oncologic (Cancer) 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: None Dermatologic 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: None - Infectious Disease History Infectious Disease 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: Chicken Pox, Measles, Mumps - Past Surgical History GI Surgical 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: Colonoscopy, Polypectomy Female Surgical 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: Hysterectomy, Salpingo-Oophorectomy Endocrine Surgical 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: None Musculoskeletal Surgical 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: Hip Replacement, Knee Replacement Other Musculoskeletal Surgeries/Procedures:: bilateral hip replacement, left knee replacement Social & Family History - Family History Family Medical History: Noncontributory - Tobacco Use Smoking Status *Q: Current Every Day Smoker Years of Tobacco use: 60 Packs/Tins Daily: 0.2 - Caffeine Use Caffeine Use: Reports: Coffee Caffeine Use Comment: 3-4 cups a day - Recreational Drug Use Recreational Drug Use: No H&P Review of Systems - Review of Systems: Review Of Systems: ROS reveals no pertinent complaints other than HPI. Exam - Exam Exam: See Below - Vital Signs Vital Signs: Last Vital Signs Temp 36.7 C 08/08/19 20:27 Pulse 77 08/08/19 20:27 Resp 20 08/08/19 20:27 BP 156/70 H 08/08/19 20:27 Pulse Ox 92 L 08/08/19 20:27 Weight: 62 kg - Exam General: Alert, Oriented HEENT: Mucosa Moist & [place] Lungs: Normal Respiratory Effort, Rhonchi (rigth upper lobe) Cardiovascular: Regular Rate, Regular Rhythm GI/Abdominal Exam: Soft, Non-Tender Extremities: Non-Tender, No Pedal Edema Skin: Warm, Dry, Intact Neurological: Cranial Nerves Intact - Patient Data Lab Results Last 24 hrs: Laboratory Results - last 24 hr 08/08/19 08/08/19 08/08/19 Range/Units 18:22 18:22 18:45 WBC 10.30 (4.0-11.0) K/uL RBC 4.59 (4.30-5.90) M/uL Hgb 13.3 (12.0-16.0) g/dL Hct 42.4 (36.0-46.0) % MCV 92.4 (80.0-98.0) fL MCH 29.0 (27.0-32.0) pg MCHC 31.4 (31.0-37.0) g/dL RDW Std Deviation 47.4 (28.0-62.0) fl RDW Coeff of Dorinda 14 (11.0-15.0) % Plt Count 167 (150-400) K/uL MPV 12.20 H (7.40-12.00) fL Neut % (Auto) 78.0 (48.0-80.0) % Lymph % (Auto) 13.8 L (16.0-40.0) % [place] % (Auto) 7.6 (0.0-15.0) % Eos % (Auto) 0.4 (0.0-7.0) % Baso % (Auto) 0.2 (0.0-1.5) % Neut # (Auto) 8.0 H (1.4-5.7) K/uL Lymph # (Auto) 1.4 (0.6-2.4) K/uL [place] # (Auto) 0.8 (0.0-0.8) K/uL Eos # (Auto) 0.0 (0.0-0.7) K/uL Baso # (Auto) 0.0 (0.0-0.1) K/uL Nucleated RBC % 0.0 /100WBC Nucleated RBCs # 0 K/uL ABG pH 7.426 (7.35-7.45) ABG pCO2 50 H (35-45) mmHG ABG pO2 85 (75-100) mmHG ABG HCO3 33 H (22-26) mEq/L ABG Total CO2 29.7 ABG Base Excess 7.1 H (-2.0-2.0) Sodium 142 (136-145) mmol/L Potassium 4.0 (3.5-5.1) mmol/L Chloride 103 (98-107) mmol/L Carbon Dioxide 30.6 (21.0-32.0) mmol/L BUN 17 (7.0-18.0) mg/dL Creatinine 0.8 (0.6-1.0) mg/dL Est Cr Clr Drug Dosing 50.90 mL/min Estimated GFR (MDRD) > 60.0 ml/min Glucose 91 (74-106) mg/dL Calcium 8.7 (8.5-10.1) mg/dL Total Bilirubin 0.5 (0.2-1.0) mg/dL AST 21 (15-37) IU/L ALT 18 (14-63) IU/L Alkaline Phosphatase 94 (46-116) U/L Troponin I < 0.050 (0.000-0.056) ng/mL Total Protein 6.7 (6.4-8.2) g/dL Albumin 2.8 L (3.4-5.0) g/dL Globulin 3.9 (2.6-4.0) g/dL Albumin/Globulin Ratio 0.7 L (0.9-1.6) Result Diagrams: 08/09/19 05:20 08/09/19 05:20 Mahad Results Last 24 hrs: Microbiology 08/08/19 18:22 Anaerobic Blood Culture - Final Blood - Venous Problem List Initiated/Reviewed/Updated: Yes Orders Last 24hrs: Active Orders 24 hr Category Date Time Status Admission Status [Patient Status] [ADT] Stat ADT 08/08/19 18:48 Active EKG Documentation Completion [RC] STAT Care 08/08/19 17:58 Active RT Aerosol Therapy [RC] ASDIRECTED Care 08/08/19 18:30 Active Regular Diet [DIET] Diet 08/09/19 Breakfast Active CULTURE BLOOD [BC] Stat Lab 08/08/19 18:22 Results CULTURE BLOOD [BC] Stat Lab 08/08/19 18:40 Received UA RFX MAHAD AND CULT IF INDIC [URIN] Stat Lab 08/08/19 17:58 Ordered Doxycycline [Vibramycin] 100 mg Med 08/08/19 21:30 Ordered Sodium Chloride 0.9% [Normal Saline] 100 ml IV Q12H Lisinopril [Lisinopril] Med 08/09/19 09:00 Ordered 30 mg PO DAILY Metoprolol Succinate [Toprol XL] Med 08/09/19 09:00 Ordered 50 mg PO DAILY Sodium Chloride 0.9% [Normal Saline] 1,000 ml Med 08/08/19 18:30 Active IV STAT Sodium Chloride 0.9% [Saline Flush] Med 08/08/19 17:58 Active 10 ml FLUSH ASDIRECTED PRN Sodium Chloride 0.9% [Saline Flush] Med 08/08/19 17:58 Active 2.5 ml FLUSH ASDIRECTED PRN cefTRIAXone [Rocephin] Med 08/09/19 19:00 Ordered 1 gm IVPUSH Q24H rOPINIRole [Requip XL] Med 08/09/19 09:00 Ordered 2 mg PO DAILY Blood Culture x2 Reflex Set [OM.PC] Stat Oth 08/08/19 17:59 Ordered Saline Lock Insert [OM.PC] Stat Oth 08/08/19 17:58 Ordered Medication Orders Ceftriaxone Sodium (Rocephin) 1 gm IVPUSH Q24H MARTHA Sodium Chloride (Normal Saline) 1,000 mls @ 125 mls/hr IV STAT ONE Stop: 08/09/19 02:29 Last Admin: 08/08/19 18:35 Dose: 125 mls/hr Doxycycline Hyclate 100 mg/ (Sodium Chloride) 100 mls @ 100 mls/hr IV Q12H MARTHA Metoprolol Succinate (Toprol Xl) 50 mg PO DAILY MARTHA Non-Formulary Medication (Lisinopril [Lisinopril]) 30 mg PO DAILY MARTHA Non-Formulary Medication (Ropinirole [Requip Xl]) 2 mg PO DAILY MARTHA Sodium Chloride (Saline Flush) 10 ml FLUSH ASDIRECTED PRN PRN Reason: Keep Vein Open Last Admin: 08/08/19 18:35 Dose: 10 ml Sodium Chloride (Saline Flush) 2.5 ml FLUSH ASDIRECTED PRN PRN Reason: Keep Vein Open Last Admin: 08/08/19 18:35 Dose: 2.5 ml Assessment/Plan Comment:: 83 yo old female admitted for community acquired pneumonia. We will treat with Rocephin and doxycycline. Ct scan of chest has been ordered to further evaluate chest x-ray findings.
[2019-08-08] MEDS: Heparin Sodium 5,000 Units/ML Vial SUBCUT SCH (22:22)
[2019-08-08] MEDS: Doxycycline 100 MG in Sodium Chloride 0.9% 100 ML IV SCH (22:24)
[2019-08-09 05:46] LABS: BLOOD UREA NITROGEN,BUN 17 mg/dL (7.0-18.0); CARBON DIOXIDE,CO2 30.6 mmol/L (21.0-32.0); CHLORIDE,CL 107 mmol/L (98-107); GLUCOSE RANDOM 195 mg/dL (74-106); POTASSIUM,K 4.3 mmol/L (3.5-5.1); SODIUM,NA 143 mmol/L (136-145)
[2019-08-09] MEDS: Heparin Sodium 5,000 Units/ML Vial SUBCUT SCH ×3 (05:51→21:29)
--- NOTE | 2019-08-09 08:03 | CT ---
INDICATION: Lung nodule TECHNIQUE: CT chest without contrast. COMPARISON: 10/07/2018 FINDINGS: Lungs and pleura: Irregular 1.3 cm ground-glass nodule in the left upper lobe on series 202, image 18 is unchanged. New cluster of small inflammatory nodules in the posterior lateral right upper lobe on image 34. New peripheral inflammatory changes are also present in the anterior inferior base of the right upper lobe and left upper lobe visualized on image 60. 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 New small bilateral pleural effusions with adjacent passive atelectasis. Heart and vasculature: Stable mild cardiomegaly. Great vessels are normal in caliber.Coronary artery atherosclerosis is present. Mild pericardial thickening or trace effusion is new or slightly increased. Lymph nodes/mediastinum: No mediastinal, hilar, or axillary adenopathy. Stable nodular enlargement of the left thyroid lobe with intrathoracic extension. Chest wall: No masses. Upper abdomen: Normal. Bones: Unremarkable for age. IMPRESSION: 1. Stable irregular 1.3 cm ground-glass nodule left upper lobe. Continued CT surveillance is recommended. 2. 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 3. No areas of peripheral inflammation or infection are present in both upper lobes. 4. Slight interval prominence of mild pericardial thickening or trace effusion. [employer] - SUBSOLID NODULES: GROUND GLASS - nodule less than 6 mm: No routine follow-up. - nodule greater than 6 mm: CT at 6-12 months to confirm persistence, then CT every 2 years until 5 years. Please note that all CT scans at this facility use dose modulation, iterative reconstruction, and/or weight-based dosing when appropriate to reduce radiation dose to as low as reasonably achievable. Dictated by Del Linares MD @ Aug 09 2019 7:43AM Signed by Dr. Del Linares @ Aug 09 2019 8:02AM
[2019-08-09] MEDS: Metoprolol Succinate 50 MG Tab.ER PO SCH (08:45)
[2019-08-09] MEDS: Lisinopril 10 MG Tab PO SCH (08:46)
[2019-08-09] MEDS: rOPINIRole 1 MG Tab PO SCH ×2 (08:46→21:31)
[2019-08-09] MEDS ORDERED: ROPINIROLE 2 MG PO SCH (09:00)
[2019-08-09] MEDS: Doxycycline 100 MG in Sodium Chloride 0.9% 100 ML IV SCH ×3 (10:45→21:46)
--- NOTE | 2019-08-09 10:59 | PCM.PN ---
- General Info Date of Service: 08/09/19 - Review of Systems Systems Review Comment:: feeling better, is wanting to go home. She did have palpitations this morning with EKG showing SVT of HR of 150s - Patient Data Vitals - Most Recent: Last Vital Signs Temp 36.6 C 08/09/19 04:00 Pulse 120 H 08/09/19 08:45 Resp 18 08/09/19 04:00 BP 117/68 08/09/19 08:46 Pulse Ox 92 L 08/09/19 04:00 Weight - Most Recent: 62 kg I&O - Last 24 Hours: Intake & Output 08/08/19 08/09/19 08/09/19 22:59 06:59 14:59 Intake Total 100 1280 Output Total 120 Balance 100 1160 Lab Results Last 24 Hours: Laboratory Results - last 24 hr 08/08/19 08/08/19 08/08/19 Range/Units 18:22 18:22 18:45 WBC 10.30 (4.0-11.0) K/uL RBC 4.59 (4.30-5.90) M/uL Hgb 13.3 (12.0-16.0) g/dL Hct 42.4 (36.0-46.0) % MCV 92.4 (80.0-98.0) fL MCH 29.0 (27.0-32.0) pg MCHC 31.4 (31.0-37.0) g/dL RDW Std Deviation 47.4 (28.0-62.0) fl RDW Coeff of Dorinda 14 (11.0-15.0) % Plt Count 167 (150-400) K/uL MPV 12.20 H (7.40-12.00) fL Neut % (Auto) 78.0 (48.0-80.0) % Lymph % (Auto) 13.8 L (16.0-40.0) % [place] % (Auto) 7.6 (0.0-15.0) % Eos % (Auto) 0.4 (0.0-7.0) % Baso % (Auto) 0.2 (0.0-1.5) % Neut # (Auto) 8.0 H (1.4-5.7) K/uL Lymph # (Auto) 1.4 (0.6-2.4) K/uL [place] # (Auto) 0.8 (0.0-0.8) K/uL Eos # (Auto) 0.0 (0.0-0.7) K/uL Baso # (Auto) 0.0 (0.0-0.1) K/uL Nucleated RBC % 0.0 /100WBC Nucleated RBCs # 0 K/uL ABG pH 7.426 (7.35-7.45) ABG pCO2 50 H (35-45) mmHG ABG pO2 85 (75-100) mmHG ABG HCO3 33 H (22-26) mEq/L ABG Total CO2 29.7 ABG Base Excess 7.1 H (-2.0-2.0) Sodium 142 (136-145) mmol/L Potassium 4.0 (3.5-5.1) mmol/L Chloride 103 (98-107) mmol/L Carbon Dioxide 30.6 (21.0-32.0) mmol/L BUN 17 (7.0-18.0) mg/dL Creatinine 0.8 (0.6-1.0) mg/dL Est Cr Clr Drug Dosing 50.90 mL/min Estimated GFR (MDRD) > 60.0 ml/min Glucose 91 (74-106) mg/dL Calcium 8.7 (8.5-10.1) mg/dL Total Bilirubin 0.5 (0.2-1.0) mg/dL AST 21 (15-37) IU/L ALT 18 (14-63) IU/L Alkaline Phosphatase 94 (46-116) U/L Troponin I < 0.050 (0.000-0.056) ng/mL Total Protein 6.7 (6.4-8.2) g/dL Albumin 2.8 L (3.4-5.0) g/dL Globulin 3.9 (2.6-4.0) g/dL Albumin/Globulin Ratio 0.7 L (0.9-1.6) Urine Color Urine Appearance Urine pH (5.0-8.0) Ur Specific [place] (1.001-1.035) Urine Protein (NEGATIVE) mg/dL Urine Glucose (UA) (NEGATIVE) mg/dL Urine Ketones (NEGATIVE) mg/dL Urine Occult Blood (NEGATIVE) Urine Nitrite (NEGATIVE) Urine Bilirubin (NEGATIVE) Urine Urobilinogen (<2.0) EU/dL Ur Leukocyte Esterase (NEGATIVE) 08/08/19 08/09/19 08/09/19 Range/Units 23:45 05:20 05:20 WBC 5.22 (4.0-11.0) K/uL RBC 4.22 L (4.30-5.90) M/uL Hgb 12.4 (12.0-16.0) g/dL Hct 38.7 (36.0-46.0) % MCV 91.7 (80.0-98.0) fL MCH 29.4 (27.0-32.0) pg MCHC 32.0 (31.0-37.0) g/dL RDW Std Deviation 46.9 (28.0-62.0) fl RDW Coeff of Dorinda 14 (11.0-15.0) % Plt Count 159 (150-400) K/uL MPV 11.10 (7.40-12.00) fL Neut % (Auto) 86.6 H (48.0-80.0) % Lymph % (Auto) 11.5 L (16.0-40.0) % [place] % (Auto) 1.7 (0.0-15.0) % Eos % (Auto) 0.0 (0.0-7.0) % Baso % (Auto) 0.2 (0.0-1.5) % Neut # (Auto) 4.5 (1.4-5.7) K/uL Lymph # (Auto) 0.6 (0.6-2.4) K/uL [place] # (Auto) 0.1 (0.0-0.8) K/uL Eos # (Auto) 0.0 (0.0-0.7) K/uL Baso # (Auto) 0.0 (0.0-0.1) K/uL Nucleated RBC % 0.0 /100WBC Nucleated RBCs # 0 K/uL ABG pH (7.35-7.45) ABG pCO2 (35-45) mmHG ABG pO2 (75-100) mmHG ABG HCO3 (22-26) mEq/L ABG Total CO2 ABG Base Excess (-2.0-2.0) Sodium 143 (136-145) mmol/L Potassium 4.3 (3.5-5.1) mmol/L Chloride 107 (98-107) mmol/L Carbon Dioxide 30.6 (21.0-32.0) mmol/L BUN 17 (7.0-18.0) mg/dL Creatinine 0.7 (0.6-1.0) mg/dL Est Cr Clr Drug Dosing 58.18 mL/min Estimated GFR (MDRD) > 60.0 ml/min Glucose 195 H (74-106) mg/dL Calcium 7.9 L (8.5-10.1) mg/dL Total Bilirubin (0.2-1.0) mg/dL AST (15-37) IU/L ALT (14-63) IU/L Alkaline Phosphatase (46-116) U/L Troponin I (0.000-0.056) ng/mL Total Protein (6.4-8.2) g/dL Albumin (3.4-5.0) g/dL Globulin (2.6-4.0) g/dL Albumin/Globulin Ratio (0.9-1.6) Urine Color YELLOW Urine Appearance CLEAR Urine pH 6.0 (5.0-8.0) Ur Specific [place] 1.020 (1.001-1.035) Urine Protein NEGATIVE (NEGATIVE) mg/dL Urine Glucose (UA) NEGATIVE (NEGATIVE) mg/dL Urine Ketones 15 H (NEGATIVE) mg/dL Urine Occult Blood NEGATIVE (NEGATIVE) Urine Nitrite NEGATIVE (NEGATIVE) Urine Bilirubin NEGATIVE (NEGATIVE) Urine Urobilinogen 2.0 H (<2.0) EU/dL Ur Leukocyte Esterase NEGATIVE (NEGATIVE) Mahad Results Last 24 Hours: Microbiology 08/08/19 18:22 Anaerobic Blood Culture - Final Blood - Venous Med Orders - Current: Current Medications Acetaminophen (Tylenol) 650 mg PO Q4H PRN PRN Reason: Pain (Mild 1-3)/fever Albuterol/Ipratropium (Duoneb 3.0-0.5 Mg/3 Ml) 3 ml NEB Q4HRRT PRN PRN Reason: Shortness Of Breath/wheezing Heparin Sodium (Porcine) (Heparin Sodium) 5,000 units SUBCUT Q8H [facility] Last Admin: 08/09/19 05:51 Dose: 5,000 units Ceftriaxone Sodium/Dextrose 1 (gm/ Premix) 50 mls @ 100 mls/hr IV Q24H [facility] Doxycycline Hyclate 100 mg/ (Sodium Chloride) 100 mls @ 100 mls/hr IV Q12H [facility] Last Admin: 08/09/19 10:45 Dose: 100 mls/hr Lisinopril (Prinivil) 30 mg PO DAILY [facility] Last Admin: 08/09/19 08:46 Dose: 30 mg Metoprolol Succinate (Toprol Xl) 50 mg PO DAILY [facility] Last Admin: 08/09/19 08:45 Dose: 50 mg Ropinirole HCl (Requip) 2 mg PO BID [facility] Last Admin: 08/09/19 08:46 Dose: 2 mg Sodium Chloride (Saline Flush) 10 ml FLUSH ASDIRECTED PRN PRN Reason: Keep Vein Open Last Admin: 08/08/19 18:35 Dose: 10 ml Sodium Chloride (Saline Flush) 2.5 ml FLUSH ASDIRECTED PRN PRN Reason: Keep Vein Open Last Admin: 08/08/19 18:35 Dose: 2.5 ml Discontinued Medications Albuterol/Ipratropium (Duoneb 3.0-0.5 Mg/3 Ml) 3 ml NEB ONETIME ONE Stop: 08/08/19 18:31 Last Admin: 08/08/19 18:35 Dose: 3 ml Ceftriaxone Sodium (Rocephin) 1 gm IVPUSH Q24H [facility] Sodium Chloride (Normal Saline) 1,000 mls @ 125 mls/hr IV STAT ONE Stop: 08/09/19 02:29 Last Admin: 08/08/19 18:35 Dose: 125 mls/hr Ceftriaxone Sodium/Dextrose 1 (gm/ Premix) 50 mls @ 100 mls/hr IV ONETIME ONE Stop: 08/08/19 19:09 Last Admin: 08/08/19 18:48 Dose: 100 mls/hr Doxycycline Hyclate 100 mg/ (Sodium Chloride) 100 mls @ 100 mls/hr IV Q12H [facility] Last Admin: 08/09/19 10:45 Dose: Not Given Methylprednisolone Sodium Succinate (Solu-Medrol) 125 mg IVPUSH ONETIME ONE Stop: 08/08/19 18:31 Last Admin: 08/08/19 18:35 Dose: 125 mg Ropinirole [Requip (Xl] 2 Mg) 1 each PO DAILY [facility] - Exam General: Alert, Oriented Lungs: Rhonchi Cardiovascular: Regular Rate, Regular Rhythm GI/Abdominal Exam: Soft, Non-Tender Extremities: Non-Tender, No Pedal Edema Skin: Warm, Dry, Intact - Problem List Review Problem List Initiated/Reviewed/Updated: Yes - My Orders Last 24 Hours: My Active Orders 08/08/19 21:25 Oxygen Therapy [RC] PRN Up ad Danielle [RC] ASDIRECTED VTE/DVT Education [RC] PER UNIT ROUTINE Vital Signs [RC] Q4H Acetaminophen [Tylenol] 650 mg PO Q4H PRN Albuterol/Ipratropium [DuoNeb 3.0-0.5 MG/3 ML] 3 ml NEB Q4HRRT PRN Resuscitation Status Routine 08/08/19 21:26 Antiembolic Devices [RC] PER UNIT ROUTINE RT Aerosol Therapy [RC] ASDIRECTED Sequential Compression Device [OM.PC] Per Unit Routine 08/08/19 22:00 Heparin Sodium 5,000 units SUBCUT Q8H 08/09/19 08:35 EKG 12 Lead [EKG Documentation Completion] [RC] STAT 08/09/19 09:00 Lisinopril [Prinivil] 30 mg PO DAILY Metoprolol Succinate [Toprol XL] 50 mg PO DAILY rOPINIRole [Requip] 2 mg PO BID 08/09/19 09:11 Telemetry Monitoring [Cardiac Monitoring] [RC] . DIRECTED 08/09/19 10:43 Doxycycline [Vibramycin] 100 mg Sodium Chloride 0.9% [Normal Saline] 100 ml IV Q12H 08/09/19 Breakfast Regular Diet [DIET] 08/10/19 05:11 BASIC METABOLIC PANEL,BMP [CHEM] AM CBC WITH AUTO DIFF [HEME] AM - Plan Plan:: 83 yo old female admitted for community acquired pneumonia. Pneumonia: continue Rocephin and doxycycline. CT scan of chest showed stable Left upper lobe nodule. cultures pending. paradoxical SVT: will place on telemetry
[2019-08-09] MEDS ORDERED: cefTRIAXone 1 GM in Premix Bag 1 BAG IV SCH (18:00)
[2019-08-09] MEDS ORDERED: cefTRIAXone 1 GM Vial IVPUSH SCH (19:00)
[2019-08-09] MEDS: Diltiazem 25 MG/5 ML SDV IVPUSH PRN (23:25)
[2019-08-10] MEDS: Diltiazem 25 MG/5 ML SDV IVPUSH PRN ×2 (03:33→07:01)
[2019-08-10] MEDS: Heparin Sodium 5,000 Units/ML Vial SUBCUT SCH (06:22)
[2019-08-10 07:06] LABS: BLOOD UREA NITROGEN,BUN 24 mg/dL (7.0-18.0); CARBON DIOXIDE,CO2 35.7 mmol/L (21.0-32.0); CHLORIDE,CL 109 mmol/L (98-107); GLUCOSE RANDOM 93 mg/dL (74-106); POTASSIUM,K 5.1 mmol/L (3.5-5.1); SODIUM,NA 147 mmol/L (136-145)
[2019-08-10] MEDS: Lisinopril 10 MG Tab PO SCH (08:19)
[2019-08-10] MEDS: rOPINIRole 1 MG Tab PO SCH (08:20)
[2019-08-10] MEDS: Metoprolol Succinate 50 MG Tab.ER PO SCH (08:22)
--- NOTE | 2019-08-10 09:42 | PCM.DCSUM1 ---
Discharge Summary - Discharge Data Discharge Date: 08/10/19 Discharge Disposition: Home, Self-Care 01 Condition: Good - Referral to Home Health Primary Care Physician: Charlie Sepulveda MD - Patient Summary/Data Hospital Course: 83 yo female with pmh of HTN and COPD who was admitted for community acquired pneumonia. She presented with one week history of nonproductive cough, shortness of breath, fevers and generalized weakness. She was seen in the ED two day prio to admission and declined hospitalization she was sent home with azithromycin and prednisone. She then returned to the ED complaining of same symptoms and was agreeable to admission. CT scan of the chest showed stable 1.3 cm right upper lobe nodule. No areas of peripheral inflammation of upper lobes, slight interval promenance of mild pericardial thickening. Patient was treated with Rocephin and Doxycyline. She did have improvement in hers symptoms. She did have some brief episodes of SVT with heart rate in the 120s- 150s. Her home dose of metoprolol was increased. Today she is requesting discharge. She is to have follow up with Dr. Wyman. - Discharge Plan Prescriptions/Med Rec: Doxycycline [Vibramycin] 100 mg PO BID #10 cap Metoprolol Succinate [Toprol XL 50mg] 75 mg PO DAILY #30 tab.er Home Medications: Home Meds Lisinopril 30 mg PO DAILY 07/14/14 [History] Metoprolol Succinate [Toprol XL 50mg] 50 mg PO DAILY 07/14/14 [History] Albuterol [Ventolin HFA] 1 puff .XX Q4HR PRN 08/09/19 [History] Diclofenac Sodium [Diclofenac Sodium ER] 50 mg PO TID PRN 08/09/19 [History] Ipratropium/Albuterol Sulfate [Iprat-Albut 0.5-3(2.5) mg/3 ml] 3 ml IH Q4HR PRN 08/09/19 [History] predniSONE [Prednisone] 20 mg PO DAILY 08/09/19 [History] rOPINIRole [Requip] 2 mg PO BID 08/09/19 [History] Doxycycline [Vibramycin] 100 mg PO BID #10 cap 08/10/19 [Rx] Metoprolol Succinate [Toprol XL 50mg] 75 mg PO DAILY #30 tab.er 08/10/19 [Rx] Patient Handouts: Community-Acquired Pneumonia, Adult, [id number] Referrals: Sherri Patel, [employer] [Ordering Only Provider] - 08/15/19 10:00 am (You appointment was not able to be made with Dr. Edgar due to him being out of the office. Arrive 15 minutes early with a photo ID and insurance card. If you are not early they will not be able to see you.) Charlie Sepulveda MD [Primary Care Provider] - (Arrive 15 minutes early with a photo ID and insurance card. If you are not early they will not see you.) - Discharge Summary/Plan Comment DC Time >30 min.: No - Patient Data Vitals - Most Recent: Last Vital Signs Temp 36.4 C 08/10/19 07:56 Pulse 62 08/10/19 08:22 Resp 18 08/10/19 07:56 BP 115/72 08/10/19 08:22 Pulse Ox 95 08/10/19 07:56 Weight - Most Recent: 64.365 kg I&O - Last 24 hours: Intake & Output 08/09/19 08/10/19 08/10/19 22:59 06:59 14:59 Intake Total 850 600 Output Total 450 275 Balance 400 325 Lab Results - Last 24 hrs: Laboratory Results - last 24 hr 08/10/19 08/10/19 Range/Units 06:30 06:30 WBC 8.81 (4.0-11.0) K/uL RBC 4.39 (4.30-5.90) M/uL Hgb 12.7 (12.0-16.0) g/dL Hct 41.7 (36.0-46.0) % MCV 95.0 (80.0-98.0) fL MCH 28.9 (27.0-32.0) pg MCHC 30.5 L (31.0-37.0) g/dL RDW Std Deviation 49.4 (28.0-62.0) fl RDW Coeff of Dorinda 14 (11.0-15.0) % Plt Count 203 (150-400) K/uL MPV 11.70 (7.40-12.00) fL Neut % (Auto) 66.6 (48.0-80.0) % Lymph % (Auto) 22.9 (16.0-40.0) % [place] % (Auto) 9.5 (0.0-15.0) % Eos % (Auto) 0.9 (0.0-7.0) % Baso % (Auto) 0.1 (0.0-1.5) % Neut # (Auto) 5.9 H (1.4-5.7) K/uL Lymph # (Auto) 2.0 (0.6-2.4) K/uL [place] # (Auto) 0.8 (0.0-0.8) K/uL Eos # (Auto) 0.1 (0.0-0.7) K/uL Baso # (Auto) 0.0 (0.0-0.1) K/uL Nucleated RBC % 0.0 /100WBC Nucleated RBCs # 0 K/uL Sodium 147 H (136-145) mmol/L Potassium 5.1 (3.5-5.1) mmol/L Chloride 109 H (98-107) mmol/L Carbon Dioxide 35.7 H (21.0-32.0) mmol/L BUN 24 H (7.0-18.0) mg/dL Creatinine 0.8 (0.6-1.0) mg/dL Est Cr Clr Drug Dosing 50.90 mL/min Estimated GFR (MDRD) > 60.0 ml/min Glucose 93 (74-106) mg/dL Calcium 8.5 (8.5-10.1) mg/dL VANI Results - Last 24 hrs: Microbiology 08/08/19 18:40 Aerobic Blood Culture - Preliminary Blood - Venous - Lab Draw NO GROWTH AFTER 1 DAY Anaerobic Blood Culture - Preliminary NO GROWTH AFTER 1 DAY 08/08/19 18:22 Aerobic Blood Culture - Preliminary Blood - Venous NO GROWTH AFTER 1 DAY Anaerobic Blood Culture - Final Med Orders - Current: Current Medications Acetaminophen (Tylenol) 650 mg PO Q4H PRN PRN Reason: Pain (Mild 1-3)/fever Albuterol/Ipratropium (Duoneb 3.0-0.5 Mg/3 Ml) 3 ml NEB Q4HRRT PRN PRN Reason: Shortness Of Breath/wheezing Diltiazem HCl (Diltiazem) 10 mg IVPUSH Q3H PRN PRN Reason: Tachycardia Last Admin: 08/10/19 07:01 Dose: 10 mg Heparin Sodium (Porcine) (Heparin Sodium) 5,000 units SUBCUT Q8H [facility] Last Admin: 08/10/19 06:22 Dose: 5,000 units Ceftriaxone Sodium/Dextrose 1 (gm/ Premix) 50 mls @ 100 mls/hr IV Q24H [facility] Last Admin: 08/09/19 17:29 Dose: 100 mls/hr Doxycycline Hyclate 100 mg/ (Sodium Chloride) 100 mls @ 100 mls/hr IV Q12H [facility] Last Admin: 08/09/19 21:46 Dose: 100 mls/hr Lisinopril (Prinivil) 30 mg PO DAILY [facility] Last Admin: 08/10/19 08:19 Dose: 30 mg Metoprolol Succinate (Toprol Xl) 50 mg PO DAILY [facility] Last Admin: 08/10/19 08:22 Dose: 50 mg Ropinirole HCl (Requip) 2 mg PO BID [facility] Last Admin: 08/10/19 08:20 Dose: 2 mg Sodium Chloride (Saline Flush) 10 ml FLUSH ASDIRECTED PRN PRN Reason: Keep Vein Open Last Admin: 08/08/19 18:35 Dose: 10 ml Sodium Chloride (Saline Flush) 2.5 ml FLUSH ASDIRECTED PRN PRN Reason: Keep Vein Open Last Admin: 08/08/19 18:35 Dose: 2.5 ml Discontinued Medications Albuterol/Ipratropium (Duoneb 3.0-0.5 Mg/3 Ml) 3 ml NEB ONETIME ONE Stop: 08/08/19 18:31 Last Admin: 08/08/19 18:35 Dose: 3 ml Ceftriaxone Sodium (Rocephin) 1 gm IVPUSH Q24H [facility] Sodium Chloride (Normal Saline) 1,000 mls @ 125 mls/hr IV STAT ONE Stop: 08/09/19 02:29 Last Admin: 08/08/19 18:35 Dose: 125 mls/hr Ceftriaxone Sodium/Dextrose 1 (gm/ Premix) 50 mls @ 100 mls/hr IV ONETIME ONE Stop: 08/08/19 19:09 Last Admin: 08/08/19 18:48 Dose: 100 mls/hr Doxycycline Hyclate 100 mg/ (Sodium Chloride) 100 mls @ 100 mls/hr IV Q12H [facility] Last Admin: 08/09/19 10:45 Dose: Not Given Methylprednisolone Sodium Succinate (Solu-Medrol) 125 mg IVPUSH ONETIME ONE Stop: 08/08/19 18:31 Last Admin: 08/08/19 18:35 Dose: 125 mg Ropinirole [Requip (Xl] 2 Mg) 1 each PO DAILY [facility]
== END 2019-08-10 10:35 | disposition home or self-care (01) | DRG 194 ==
LOC: MW.ED 17:51 → MW.MS 18:48
PROVIDERS: ADMIT Internal Medicine; ATTEND Internal Medicine
DX: J18.1 Lobar pneumonia, unspecified organism (principal); I47.1 Supraventricular tachycardia; R09.02 Hypoxemia; R53.1 Weakness; R06.02 Shortness of breath; J44.9 Chronic obstructive pulmonary disease, unspecified; J44.0 Chronic obstructive pulmonary disease with (acute) lower respiratory infection; R91.1 Solitary pulmonary nodule; I10 Essential (primary) hypertension; M19.90 Unspecified osteoarthritis, unspecified site; Z96.643 Presence of artificial hip joint, bilateral; Z96.652 Presence of left artificial knee joint; F17.200 Nicotine dependence, unspecified, uncomplicated; Z88.5 Allergy status to narcotic agent; Z79.52 Long term (current) use of systemic steroids; Z79.899 Other long term (current) drug therapy; Z90.710 Acquired absence of both cervix and uterus
CPT/HCPCS: 36600; 71045; 80053; 82803; 84484; 85025; 87040 ×2; 94640; 96361; 96375; 99285; J2930; J7040; 36415; 71250; 71250-26; 80048; 81003; 93005; 96365; 99283; A9270-GY; J0696; J1644; J3490; J7030; J7620-GY

== ENCOUNTER 2019-10-13 13:03 | Observation (INO) | payer MEDICARE, OTHER ==
[2019-10-13] MEDS ORDERED: Diphtheria/Tetanus Toxoids,Adult (Td) 0.5 ML Syringe IM ONE (13:14)
--- NOTE | 2019-10-13 13:14 | EDM.PDOC ---
ED HPI GENERAL MEDICAL PROBLEM - General Chief Complaint: Trauma Stated Complaint: PT FELL Time Seen by Provider: 10/13/19 13:08 - History of Present Illness INITIAL COMMENTS - FREE TEXT/NARRATIVE: HISTORY AND PHYSICAL: History of present illness: The patient is a 84-year-old female with a known history of hypertension and COPD who also had bilateral hip replacements performed and who presents via EMS after she slipped and fell on the ice while trying to go to the store to buy deicer patient says she fell to the left side landing on her left hip and the left side of her face but did not pass out or blackout. She had a laceration with bleeding at the scene per EMS but she was not nauseated nor did she feel lightheaded or dizzy. She denied any neck or back pain and only complains of pain in her left pelvis area at her inner thigh but not at her lateral hip. She has no distal thigh knee leg ankle or foot pain on the left and no other extremity complaints. She did not hit her chest and has no chest wall pain and she has no abdominal complaints or shortness of breath. Prior to these events she was in her usual state of good health and had no systemic issues. She is unsure of her last tetanus shot and she has no weakness numbness or tingling in her extremities Review of systems: As per history of present illness and below otherwise all systems reviewed and negative. Past medical history: As per history of present illness and as reviewed below otherwise noncontributory. Surgical history: As per history of present illness and as reviewed below otherwise noncontributory. Social history: No reported history of drug or alcohol abuse. Family history: As per history of present illness and as reviewed below otherwise noncontributory. Physical exam: General: Well-developed thin female who is nontoxic and vital signs are noted by me. She moves easily in the ED and is speaking clearly HEENT:normocephalic, pupils reactive, EOMs are intact and there is no visible evidence of any fascial defects or deformities, negative for conjunctival pallor or scleral icterus, mucous membranes moist, throat clear, neck supple, nontender, trachea midline. There are no midline step-offs in his defects of the cervical spine and no palpable scalp defects or deformities with the exception of the forehead where right at the hairline there is a 4 cm laceration that goes to the deep subcutaneous tissue but there is no palpable bony deformity and minimal soft tissue swelling and it measures 4 cm in total length Lungs: Clear to auscultation diminished breath sounds in the bases but no wheezing or stridor and no work of breathing, breath sounds equal bilaterally, chest nontender. Heart: S1S2, regular in rhythm but heart sounds are very distant and no overt murmur Abdomen: Soft, nondistended, nontender. Negative for masses or hepatosplenomegaly. Negative for costovertebral tenderness. Pelvis: Stable nontender. At the lateral hip on the left there is no tenderness but when I palpate the inner thigh and groin area there is some discomfort in the left leg looks slightly shortened and externally rotated Genitourinary: Deferred. Rectal: Deferred. Extremities: Atraumatic the exception of the above findings on the left lower extremity and there is full range of motion with the exception of the left lower extremity, negative for cords or calf pain. Neurovascular unremarkable. Neuro: Awake, alert, oriented. Cranial nerves II through XII unremarkable. Cerebellum unremarkable. Motor and sensory unremarkable throughout. Exam nonfocal. Back: There is thoracic kyphosis but there is no midline step-offs tenderness defects of the thoracic or lumbar spine and no posterior rib tenderness Diagnostics: EKG CBC CMP INR UA with reflex left hip with pelvis x-rays CT scan of the head Therapeutics: Cleansing of the scalp laceration, Td, Zofran fentanyl cane with epinephrine Because this patient was told to us as taking aspirin daily was called as a trauma alert due to the age and mechanism of injury with the anticoagulation profile. She now tells me that she doesn't take it every day but she does take aspirin pretty frequently including her last dose yesterday. I will maintain the trauma alert designation at this point. 1412: Case was discussed with Dr. Payan was aware of this case and will be involved as needed per the orthopedic surgeons level of comfort with taking her for conscious sedation to reduce her hip. I will discuss the case with him momentarily. 1428: Case was discussed with Dr. Moore of orthopedics who will come in and do a formal consult and plan on relocating the hip with anesthesia assistance. Her of this case and says that once the hip is relocated he will plan on discharging the patient home. 1435: Dr. Payan will also come in and do a consult as the trauma supervising physician in light of this patient's age mechanism of injury and need to go for a conscious sedation procedure. Procedure note: The wound was anesthetized locally with 1% lidocaine without epinephrine and it was cleansed by nursing. The wound was reexplored and found to be 4 cm in length. The skin edges were reapproximated using #9 simple brandon with good approximation and GRANT stasis. Bacitracin and a dressing was applied. The procedure was performed by Evens Goins NP. There were no complications Impression: Simple fall with scalp laceration, left prosthetic hip dislocation Definitive disposition and diagnosis as appropriate pending reevaluation and review of above. - Related Data Allergies Allergy/AdvReac Type Severity Reaction Status Date / Time morphine Allergy Vomiting Verified 10/13/19 14:06 Home Meds: Home Meds Lisinopril 20 mg PO ASDIRECTED 10/13/19 [History] Metoprolol Succinate 50 mg PO ASDIRECTED 10/13/19 [History] rOPINIRole [Requip] 2 mg PO ASDIRECTED 10/13/19 [History] Past Medical History - Past Health History Medical/Surgical History: Denies Medical/Surgical History Cardiovascular 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: Hypertension, Other (See Below) Other Cardiovascular History: elevated heart rate Respiratory 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: Bronchitis, Recurrent, COPD, SOB Gastrointestinal 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: None Genitourinary 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: None 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: Musculoskeletal 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: Osteoarthritis Neurological 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: None Endocrine/Metabolic 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: None Oncologic (Cancer) 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: None Dermatologic 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: None - Infectious Disease History Infectious Disease 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: Chicken Pox, Measles, Mumps - Past Surgical History GI Surgical 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: Colonoscopy, Polypectomy Female Surgical 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: Hysterectomy, Salpingo-Oophorectomy Endocrine Surgical 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: None Musculoskeletal Surgical 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: Hip Replacement, Knee Replacement Other Musculoskeletal Surgeries/Procedures:: bilateral hip replacement, left knee replacement Social & Family History - Family History Family Medical History: Noncontributory - Caffeine Use Caffeine Use: Reports: Coffee Caffeine Use Comment: 3-4 cups a day Review of Systems - Review of Systems Review Of Systems: Comprehensive ROS is negative, except as noted in HPI. ED EXAM, GENERAL - Physical Exam Exam: See Below (see Dictation) Course - Orders/Labs/Meds Orders: Active Orders 24 hr Category Date Time Status Patient Status [ADT] Stat ADT 10/13/19 13:44 Active Communication Order [RC] STAT Care 10/13/19 13:10 Active EKG Documentation Completion [RC] STAT Care 10/13/19 13:09 Active Notify Provider Consults [RC] ASDIRECTED Care 10/13/19 14:30 Active Notify Provider Consults [RC] ASDIRECTED Care 10/13/19 14:40 Active Vaccines to be Administered [RC] PER UNIT ROUTINE Care 10/13/19 13:15 Active Consult to Physician [CONS] Stat Cons 10/13/19 14:30 Active Consult to Physician [CONS] Stat Cons 10/13/19 14:40 Active UA RFX VANI AND CULT IF INDIC [URIN] Stat Lab 10/13/19 13:09 Ordered Sodium Chloride 0.9% [Normal Saline] 1,000 ml Med 10/13/19 14:15 Active IV ASDIRECTED Sodium Chloride 0.9% [Saline Flush] Med 10/13/19 14:04 Active 10 ml FLUSH ASDIRECTED PRN Sodium Chloride 0.9% [Saline Flush] Med 10/13/19 14:04 Active 2.5 ml FLUSH ASDIRECTED PRN Saline Lock Insert [OM.PC] Stat Oth 10/13/19 14:04 Ordered Medication Orders Sodium Chloride (Normal Saline) 1,000 mls @ 75 mls/hr IV ASDIRECTED [facility] Last Admin: 10/13/19 14:48 Dose: 75 mls/hr Sodium Chloride (Saline Flush) 10 ml FLUSH ASDIRECTED PRN PRN Reason: Keep Vein Open Sodium Chloride (Saline Flush) 2.5 ml FLUSH ASDIRECTED PRN PRN Reason: Keep Vein Open Labs: Laboratory Tests 10/13/19 10/13/19 10/13/19 Range/Units 14:17 14:17 14:17 WBC 7.41 (4.0-11.0) K/uL RBC 4.77 (4.30-5.90) M/uL Hgb 13.9 (12.0-16.0) g/dL Hct 42.9 (36.0-46.0) % MCV 89.9 (80.0-98.0) fL MCH 29.1 (27.0-32.0) pg MCHC 32.4 (31.0-37.0) g/dL RDW Std Deviation 49.2 (28.0-62.0) fl RDW Coeff of Droinda 15 (11.0-15.0) % Plt Count 125 L (150-400) K/uL MPV 12.30 H (7.40-12.00) fL Neut % (Auto) 77.2 (48.0-80.0) % Lymph % (Auto) 15.1 L (16.0-40.0) % [place] % (Auto) 6.7 (0.0-15.0) % Eos % (Auto) 0.7 (0.0-7.0) % Baso % (Auto) 0.3 (0.0-1.5) % Neut # (Auto) 5.7 (1.4-5.7) K/uL Lymph # (Auto) 1.1 (0.6-2.4) K/uL [place] # (Auto) 0.5 (0.0-0.8) K/uL Eos # (Auto) 0.1 (0.0-0.7) K/uL Baso # (Auto) 0.0 (0.0-0.1) K/uL Nucleated RBC % 0.0 /100WBC Nucleated RBCs # 0 K/uL INR 1.02 Sodium 142 (136-145) mmol/L Potassium 4.6 (3.5-5.1) mmol/L Chloride 107 (98-107) mmol/L Carbon Dioxide 28.0 (21.0-32.0) mmol/L BUN 18 (7.0-18.0) mg/dL Creatinine 0.7 (0.6-1.0) mg/dL Est Cr Clr Drug Dosing TNP Estimated GFR (MDRD) > 60.0 ml/min Glucose 96 (74-106) mg/dL Calcium 9.1 (8.5-10.1) mg/dL Total Bilirubin 0.6 (0.2-1.0) mg/dL AST 19 (15-37) IU/L ALT 16 (14-63) IU/L Alkaline Phosphatase 102 (46-116) U/L Total Protein 7.4 (6.4-8.2) g/dL Albumin 3.6 (3.4-5.0) g/dL Globulin 3.8 (2.6-4.0) g/dL Albumin/Globulin Ratio 0.9 (0.9-1.6) Meds: Medications Generic Name Dose Route Start Last Admin Trade Name Freq PRN Reason Stop Dose Admin Sodium Chloride 1,000 mls @ 75 mls/hr 10/13/19 14:15 10/13/19 14:48 Normal Saline IV 75 mls/hr ASDIRECTED MARTHA Administration Sodium Chloride 10 ml 10/13/19 14:04 Saline Flush FLUSH ASDIRECTED PRN Keep Vein Open Sodium Chloride 2.5 ml 10/13/19 14:04 Saline Flush FLUSH ASDIRECTED PRN Keep Vein Open Discontinued Medications Generic Name Dose Route Start Last Admin Trade Name Freq PRN Reason Stop Dose Admin Bacitracin 1 dose 10/13/19 14:16 10/13/19 14:50 Bacitracin Oint 1 Gm TOP 10/13/19 14:17 1 dose ONETIME ONE Administration Fentanyl 25 mcg 10/13/19 14:03 10/13/19 14:24 Fentanyl IVPUSH 10/13/19 14:04 Not Given ONETIME ONE Fentanyl Confirm 10/13/19 14:21 10/13/19 14:55 Sublimaze Administered 10/13/19 14:22 Not Given Dose 100 mcg .ROUTE .STK-MED ONE Fentanyl 25 mcg 10/13/19 14:52 10/13/19 14:55 Fentanyl IVPUSH 10/13/19 14:53 25 mcg ONETIME ONE Administration Lidocaine/Epinephrine 20 ml 10/13/19 13:35 10/13/19 14:48 Xylocaine 1% With Epinephrine 1:100,000 INJECT 10/13/19 13:36 20 ml ONETIME ONE Administration Ondansetron HCl 4 mg 10/13/19 14:03 10/13/19 14:49 Zofran IVPUSH 10/13/19 14:04 4 mg ONETIME ONE Administration Tetanus/Diphtheria Toxoids 0.5 ml 10/13/19 13:14 10/13/19 14:48 Tenivac IM 10/13/19 13:15 0.5 ml .ONCE ONE Administration Departure - Departure Time of Disposition: 14:46 Disposition: Still A Patient 30 Condition: Good Clinical Impression: Dislocation of hip, left, closed Qualifiers: Encounter type: initial encounter Qualified Code(s): S73.005A - Unspecified dislocation of left hip, initial encounter Scalp laceration Qualifiers: Encounter type: initial encounter Qualified Code(s): S01.01XA - Laceration without foreign body of scalp, initial encounter - Discharge Information Referrals: PCP,Unknown [Primary Care Provider] - Forms: ED Department Discharge Additional Instructions: The following information is given to patients seen in the emergency department who are being discharged to home. This information is to outline your options for follow-up care. We provide all patients seen in our emergency department with a follow-up referral. The need for follow-up, as well as the timing and circumstances, are variable depending upon the specifics of your emergency department visit. If you don't have a primary care physician on staff, we will provide you with a referral. We always advise you to contact your personal physician following an emergency department visit to inform them of the circumstance of the visit and for follow-up with them and/or the need for any referrals to a consulting specialist. The emergency department will also refer you to a specialist when appropriate. This referral assures that you have the opportunity for followup care with a specialist. All of these measure are taken in an effort to provide you with optimal care, which includes your followup. Under all circumstances we always encourage you to contact your private physician who remains a resource for coordinating your care. When calling for followup care, please make the office aware that this follow-up is from your recent emergency room visit. If for any reason you are refused follow-up, please contact the [facility] emergency department at and ask to speak to the emergency department charge nurse. Brandon on your scalp need to be removed in 7-10 days here in the emergency department with your provider in the clinic. Keep the wound clean and dry and apply bacitracin or Neosporin. Please follow-up with your orthopedic specialists or hours using resources given to below [facility] Specialty Care - Orthopedic Clinic Professional Building [address] [place] [address], [address] [place] [address] - My Orders Last 24 Hours: My Active Orders 10/13/19 13:09 EKG Documentation Completion [RC] STAT UA RFX VANI AND CULT IF INDIC [URIN] Stat 10/13/19 13:10 Communication Order [RC] STAT 10/13/19 13:15 Vaccines to be Administered [RC] PER UNIT ROUTINE 10/13/19 13:44 Patient Status [ADT] Stat 10/13/19 14:04 Sodium Chloride 0.9% [Saline Flush] 10 ml FLUSH ASDIRECTED PRN Sodium Chloride 0.9% [Saline Flush] 2.5 ml FLUSH ASDIRECTED PRN Saline Lock Insert [OM.PC] Stat 10/13/19 14:15 Sodium Chloride 0.9% [Normal Saline] 1,000 ml IV ASDIRECTED 10/13/19 14:30 Notify Provider Consults [RC] ASDIRECTED Consult to Physician [CONS] Stat 10/13/19 14:40 Notify Provider Consults [RC] ASDIRECTED Consult to Physician [CONS] Stat - Assessment/Plan Last 24 Hours: My Active Orders 10/13/19 13:09 EKG Documentation Completion [RC] STAT UA RFX VANI AND CULT IF INDIC [URIN] Stat 10/13/19 13:10 Communication Order [RC] STAT 10/13/19 13:15 Vaccines to be Administered [RC] PER UNIT ROUTINE 10/13/19 13:44 Patient Status [ADT] Stat 10/13/19 14:04 Sodium Chloride 0.9% [Saline Flush] 10 ml FLUSH ASDIRECTED PRN Sodium Chloride 0.9% [Saline Flush] 2.5 ml FLUSH ASDIRECTED PRN Saline Lock Insert [OM.PC] Stat 10/13/19 14:15 Sodium Chloride 0.9% [Normal Saline] 1,000 ml IV ASDIRECTED 10/13/19 14:30 Notify Provider Consults [RC] ASDIRECTED Consult to Physician [CONS] Stat 10/13/19 14:40 Notify Provider Consults [RC] ASDIRECTED Consult to Physician [CONS] Stat
[2019-10-13] MEDS ORDERED: Lidocaine 1% with EPINEPHrine 1:100,000 20 ML MDV INJECT ONE (13:35)
--- NOTE | 2019-10-13 13:48 | CT ---
INDICATION: Fall. Hit head. TECHNIQUE: CT head without IV contrast. COMPARISON: CT head 09/13/2017. FINDINGS: Small amounts of mucus with air bubbles and fluid in the right posterior ethmoidal and maxillary sinuses was present previously in the right ethmoidal sinus but is new in the right maxillary sinus. Osteopenia. Soft tissue swelling and small amounts of hematoma in the frontal scalp superiorly with associated air bubbles consistent with laceration. The changes are more prominent than seen in similar location previously. The soft tissue defect consistent with a moderate-sized scalp laceration is seen today versus the scalp laceration tiny previously. No o skull fracture. No intracranial hemorrhage, edema, or mass effect. Moderate cerebral and minimal cerebellar atrophy. Very small lacunar infarct in the left cerebellum. Patchy low-density change in the white matter of both cerebral hemispheres consistent small vessel ischemic disease. Intracranial vascular calcifications. Remainder negative. IMPRESSION: 1. No acute intracranial disease. Chronic intracranial findings as detailed above. 2. Moderate-size laceration superior frontal scalp with associated small amounts of hematoma and soft tissue swelling in the superior frontal scalp. 3. Minimal inflammatory changes in the right maxillary and ethmoidal sinuses. Please note that all CT scans at this facility use dose modulation, iterative reconstruction, and/or weight-based dosing when appropriate to reduce radiation dose to as low as reasonably achievable. Dictated by Rony Eddy MD @ Oct 13 2019 1:47PM Signed by Dr. Rony Eddy @ Oct 13 2019 1:47PM
--- NOTE | 2019-10-13 13:55 | CR ---
INDICATION: Fall, severe pain left groin area TECHNIQUE: Pelvis radiograph, Hip radiograph 3 views left COMPARISON: None FINDINGS: Bone: No acute fractures or aggressive bone lesions are identified. Posterior superior dislocation of the left femoral prosthesis noted. Posterior spinal fusion in the lumbar spine is partially visualized. Severe diffuse osteopenia is seen. Joint: Bilateral bipolar hip prostheses are noted. The visualized sacroiliac joints are unremarkable in appearance. The pubic symphysis is normal in appearance. Soft tissue: Lateral hip skin carlie and subcutaneous gas are present from recent surgery. The visualized bowel gas pattern of the pelvis is unremarkable in appearance. No radiopaque foreign bodies are seen. IMPRESSION: 1. Posterior superior dislocation of the left femoral prosthesis noted. Dictated by Fabiano Burrell MD @ 10/13/2019 1:54:04 PM Dictated by: Fabiano Burrell MD @ 10/13/2019 13:54:25 (Electronically Signed)
[2019-10-13] MEDS ORDERED: fentaNYL 50 MCG/ML SDV IVPUSH ONE ×2 (14:03→14:52)
[2019-10-13] MEDS ORDERED: Ondansetron 4 MG/2 ML SDV IVPUSH ONE (14:03)
[2019-10-13] MEDS ORDERED: Sodium Chloride 0.9% 10 ML Syringe FLUSH PRN (14:04)
[2019-10-13] MEDS ORDERED: Sodium Chloride 0.9% 2.5 ML Syringe FLUSH PRN (14:04)
[2019-10-13] MEDS ORDERED: Sodium Chloride 0.9% 1,000 ML IV SCH (14:15)
[2019-10-13] MEDS ORDERED: Bacitracin Oint 1 GM U/D Packet TOP ONE (14:16)
[2019-10-13 14:46] LABS: BLOOD UREA NITROGEN,BUN 18 mg/dL (7.0-18.0); CHLORIDE,CL 107 mmol/L (98-107); GLUCOSE RANDOM 96 mg/dL (74-106); POTASSIUM,K 4.6 mmol/L (3.5-5.1); SODIUM,NA 142 mmol/L (136-145)
[2019-10-13] MEDS: fentaNYL 100 MCG/2 ML SDV ONE ×3 (14:49→14:55)
--- NOTE | 2019-10-13 15:12 | PCM.PREANE ---
Preanesthetic Assessment - Anesthesia/Transfusion/Family Hx Anesthesia History: Prior Anesthesia Without Reaction Family History of Anesthesia Reaction: No Transfusion History: No Prior Transfusion(s) - Physical Assessment NPO Status Date: 10/13/19 NPO Status Time: 10:00 ASA Class: 3E Dentition: Reports: Dentures, Broken Tooth/Teeth - Lab Values: Laboratory Last Values WBC 7.41 K/uL (4.0-11.0) 10/13/19 14:17 RBC 4.77 M/uL (4.30-5.90) 10/13/19 14:17 Hgb 13.9 g/dL (12.0-16.0) 10/13/19 14:17 Hct 42.9 % (36.0-46.0) 10/13/19 14:17 MCV 89.9 fL (80.0-98.0) 10/13/19 14:17 MCH 29.1 pg (27.0-32.0) 10/13/19 14:17 MCHC 32.4 g/dL (31.0-37.0) 10/13/19 14:17 RDW Std Deviation 49.2 fl (28.0-62.0) 10/13/19 14:17 RDW Coeff of Dorinda 15 % (11.0-15.0) 10/13/19 14:17 Plt Count 125 K/uL (150-400) L 10/13/19 14:17 MPV 12.30 fL (7.40-12.00) H 10/13/19 14:17 Neut % (Auto) 77.2 % (48.0-80.0) 10/13/19 14:17 Lymph % (Auto) 15.1 % (16.0-40.0) L 10/13/19 14:17 [place] % (Auto) 6.7 % (0.0-15.0) 10/13/19 14:17 Eos % (Auto) 0.7 % (0.0-7.0) 10/13/19 14:17 Baso % (Auto) 0.3 % (0.0-1.5) 10/13/19 14:17 Neut # (Auto) 5.7 K/uL (1.4-5.7) 10/13/19 14:17 Lymph # (Auto) 1.1 K/uL (0.6-2.4) 10/13/19 14:17 [place] # (Auto) 0.5 K/uL (0.0-0.8) 10/13/19 14:17 Eos # (Auto) 0.1 K/uL (0.0-0.7) 10/13/19 14:17 Baso # (Auto) 0.0 K/uL (0.0-0.1) 10/13/19 14:17 Nucleated RBC % 0.0 /100WBC 10/13/19 14:17 Nucleated RBCs # 0 K/uL 10/13/19 14:17 INR 1.02 10/13/19 14:17 Sodium 142 mmol/L (136-145) 10/13/19 14:17 Potassium 4.6 mmol/L (3.5-5.1) 10/13/19 14:17 Chloride 107 mmol/L (98-107) 10/13/19 14:17 Carbon Dioxide 28.0 mmol/L (21.0-32.0) 10/13/19 14:17 BUN 18 mg/dL (7.0-18.0) 10/13/19 14:17 Creatinine 0.7 mg/dL (0.6-1.0) 10/13/19 14:17 Est Cr Clr Drug Dosing TNP 10/13/19 14:17 Estimated GFR (MDRD) > 60.0 ml/min 10/13/19 14:17 Glucose 96 mg/dL (74-106) 10/13/19 14:17 Calcium 9.1 mg/dL (8.5-10.1) 10/13/19 14:17 Total Bilirubin 0.6 mg/dL (0.2-1.0) 10/13/19 14:17 AST 19 IU/L (15-37) 10/13/19 14:17 ALT 16 IU/L (14-63) 10/13/19 14:17 Alkaline Phosphatase 102 U/L (46-116) 10/13/19 14:17 Total Protein 7.4 g/dL (6.4-8.2) 10/13/19 14:17 Albumin 3.6 g/dL (3.4-5.0) 10/13/19 14:17 Globulin 3.8 g/dL (2.6-4.0) 10/13/19 14:17 Albumin/Globulin Ratio 0.9 (0.9-1.6) 10/13/19 14:17 - Allergies Allergies/Adverse Reactions: Allergies Allergy/AdvReac Type Severity Reaction Status Date / Time morphine Allergy Vomiting Verified 10/13/19 14:06 - Acknowledgements Anesthesia Type Planned: General Anesthesia Pt an Appropriate Candidate for the Planned Anesthesia: Yes Alternatives and Risks of Anesthesia Discussed w Pt/Guardian: Yes Pt/Guardian Understands and Agrees with Anesthesia Plan: Yes PreAnesthesia Questionnaire - Past Health History Medical/Surgical History: Denies Medical/Surgical History Cardiovascular 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: Hypertension, Other (See Below) Other Cardiovascular History: elevated heart rate Respiratory 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: Bronchitis, Recurrent, COPD, SOB Gastrointestinal 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: None Genitourinary 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: None 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: Musculoskeletal 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: Osteoarthritis Neurological 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: None Endocrine/Metabolic 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: None Oncologic (Cancer) 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: None Dermatologic 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: None - Infectious Disease History Infectious Disease 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: Chicken Pox, Measles, Mumps - Past Surgical History GI Surgical 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: Colonoscopy, Polypectomy Female Surgical 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: Hysterectomy, Salpingo-Oophorectomy Endocrine Surgical 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: None Musculoskeletal Surgical 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: Hip Replacement, Knee Replacement Other Musculoskeletal Surgeries/Procedures:: bilateral hip replacement, left knee replacement - HOME MEDS Home Medications: Home Meds Lisinopril 20 mg PO ASDIRECTED 10/13/19 [History] Metoprolol Succinate 50 mg PO ASDIRECTED 10/13/19 [History] rOPINIRole [Requip] 2 mg PO ASDIRECTED 10/13/19 [History] - CURRENT (IN HOUSE) MEDS Current Meds: Current Medications Sodium Chloride (Normal Saline) 1,000 mls @ 75 mls/hr IV ASDIRECTED [facility] Last Admin: 10/13/19 14:48 Dose: 75 mls/hr Sodium Chloride (Saline Flush) 10 ml FLUSH ASDIRECTED PRN PRN Reason: Keep Vein Open Sodium Chloride (Saline Flush) 2.5 ml FLUSH ASDIRECTED PRN PRN Reason: Keep Vein Open Discontinued Medications Bacitracin (Bacitracin Oint 1 Gm) 1 dose TOP ONETIME ONE Stop: 10/13/19 14:17 Last Admin: 10/13/19 14:50 Dose: 1 dose Fentanyl (Fentanyl) 25 mcg IVPUSH ONETIME ONE Stop: 10/13/19 14:04 Last Admin: 10/13/19 14:24 Dose: Not Given Fentanyl (Sublimaze) Confirm Administered Dose 100 mcg .ROUTE .STK-MED ONE Stop: 10/13/19 14:22 Last Admin: 10/13/19 14:55 Dose: Not Given Fentanyl (Fentanyl) 25 mcg IVPUSH ONETIME ONE Stop: 10/13/19 14:53 Last Admin: 10/13/19 14:55 Dose: 25 mcg Lidocaine/Epinephrine (Xylocaine 1% With Epinephrine 1:100,000) 20 ml INJECT ONETIME ONE Stop: 10/13/19 13:36 Last Admin: 10/13/19 14:48 Dose: 20 ml Ondansetron HCl (Zofran) 4 mg IVPUSH ONETIME ONE Stop: 10/13/19 14:04 Last Admin: 10/13/19 14:49 Dose: 4 mg Tetanus/Diphtheria Toxoids (Tenivac) 0.5 ml IM .ONCE ONE Stop: 10/13/19 13:15 Last Admin: 10/13/19 14:48 Dose: 0.5 ml
[2019-10-13] MEDS ORDERED: Propofol 200 MG/20 ML SDV ONE (15:15)
[2019-10-13] MEDS ORDERED: fentaNYL 100 MCG/2 ML SDV ONE (15:15)
[2019-10-13] MEDS ORDERED: Lidocaine 2% 5 ML SDV ONE (15:16)
[2019-10-13] MEDS ORDERED: Ondansetron 4 MG/2 ML SDV ONE (15:16)
[2019-10-13] MEDS ORDERED: Midazolam 1 MG/ML 2 ML SDV ONE (15:17)
--- NOTE | 2019-10-13 15:26 | PCM.CONS ---
H&P History of Present Illness - General Date of Service: 10/13/19 Admit Problem/Dx: Admission Diagnosis/Problem Admission Diagnosis/Problem Traumatic injury Patient is an 84-year-old female who fell on her back step while going outside to try and put some deicer down. She felt a pop in her left hip and was unable to stand. She was outside for approximately 30-40 minutes before somebody came by to check on her. She had delayed there as she was unable to air. Weight on her left side. She was brought to the hospital on trauma alert was called given the mechanism of injury. She was found to have a dislocated left hip prosthesis. Dr. Moore, the orthopedic surgeon on-call has been notified and seen the patient and plans to take her to the operating room for closed reduction. Source of Information: Patient, Family History Limitations: Reports: No Limitations - History of Present Illness Onset of Symptoms: Reports: Today Symptom Onset Date: 10/13/19 Location: Reports: Lower Extremity, Left Quality: Reports: Ache Severity: Moderate Improves with: Reports: Rest Worsens with: Reports: Movement Associated Symptoms: Reports: No Other Symptoms left hip Pain Score (Numeric/FACES): 7 - Related Data Allergies/Adverse Reactions: Allergies Allergy/AdvReac Type Severity Reaction Status Date / Time morphine Allergy Vomiting Verified 10/13/19 14:06 Home Medications: Home Meds Lisinopril 20 mg PO ASDIRECTED 10/13/19 [History] Metoprolol Succinate 50 mg PO ASDIRECTED 10/13/19 [History] rOPINIRole [Requip] 2 mg PO ASDIRECTED 10/13/19 [History] Past Medical History - Past Health History Medical/Surgical History: Denies Medical/Surgical History Cardiovascular 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: Hypertension, Other (See Below) Other Cardiovascular History: elevated heart rate Respiratory 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: Bronchitis, Recurrent, COPD, SOB Gastrointestinal 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: None Genitourinary 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: None 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: Musculoskeletal 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: Osteoarthritis Neurological 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: None Endocrine/Metabolic 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: None Oncologic (Cancer) 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: None Dermatologic 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: None - Infectious Disease History Infectious Disease 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: Chicken Pox, Measles, Mumps - Past Surgical History GI Surgical 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: Colonoscopy, Polypectomy Female Surgical 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: Hysterectomy, Salpingo-Oophorectomy Endocrine Surgical 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: None Musculoskeletal Surgical 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: Hip Replacement, Knee Replacement Other Musculoskeletal Surgeries/Procedures:: bilateral hip replacement, left knee replacement Social & Family History - Family History Family Medical History: Noncontributory - Tobacco Use Smoking Status *Q: Former Smoker Used Tobacco, but Quit: Yes Month/Year Tobacco Last Used: unk - Caffeine Use Caffeine Use: Reports: Coffee Caffeine Use Comment: 3-4 cups a day - Recreational Drug Use Recreational Drug Use: No H&P Review of Systems - Review of Systems: Review Of Systems: See Below General: Denies: Fever, Chills, Malaise, Weakness, Fatigue HEENT: Reports: No Symptoms Pulmonary: Reports: Other (COPD). Denies: Shortness of Breath, Wheezing Cardiovascular: Denies: Chest Pain, Palpitations, Dyspnea on Exertion, Lightheadedness, Syncope Gastrointestinal: Denies: Abdominal Pain Genitourinary: Denies: Dysuria, Frequency, Burning, Pain, Urgency Musculoskeletal: Denies: Neck Pain, Shoulder Pain, Arm Pain, Hand Pain Skin: Reports: No Symptoms Psychiatric: Reports: No Symptoms Neurological: Reports: No Symptoms Hematologic/Lymphatic: Reports: No Symptoms Immunologic: Reports: No Symptoms Exam - Exam Exam: See Below - Vital Signs Vital Signs: Last Vital Signs Temp 97 F 10/13/19 13:03 Pulse 76 10/13/19 15:14 Resp 14 10/13/19 15:14 BP 158/86 H 10/13/19 15:14 Pulse Ox 95 10/13/19 15:14 - Exam Quality Assessment: No: Supplemental Oxygen General: Alert, Oriented, Cooperative, Mild Distress. No: Sedated, Lethargic, Obtunded HEENT: Conjunctiva Clear, EACs Clear, EOMI, Hearing Intact, Mucosa Moist & [place] , Nares Patent, Pupils Equal, Pupils Reactive, Other (4 cm scalp laceration) Neck: Supple, Trachea Midline. No: Carotid Bruit Lungs: Clear to Auscultation, Normal Respiratory Effort Cardiovascular: Regular Rate, Regular Rhythm, Normal S1, Normal S2. No: Tachycardia GI/Abdominal Exam: Normal Bowel Sounds, Soft, Non-Tender, No Distention (Female) Exam: Deferred Rectal (Female) Exam: Deferred Extremities: Other (Left leg is shortened and externally rotated.) Peripheral Pulses: 3+: Posterior Tibial (L), Posterior Tibial (R), Dorsalis Pedis (L), Dorsalis Pedis (R) Skin: Warm, Dry, Intact - Patient Data Lab Results Last 24 hrs: Laboratory Results - last 24 hr 10/13/19 10/13/19 10/13/19 Range/Units 14:17 14:17 14:17 WBC 7.41 (4.0-11.0) K/uL RBC 4.77 (4.30-5.90) M/uL Hgb 13.9 (12.0-16.0) g/dL Hct 42.9 (36.0-46.0) % MCV 89.9 (80.0-98.0) fL MCH 29.1 (27.0-32.0) pg MCHC 32.4 (31.0-37.0) g/dL RDW Std Deviation 49.2 (28.0-62.0) fl RDW Coeff of Dorinda 15 (11.0-15.0) % Plt Count 125 L (150-400) K/uL MPV 12.30 H (7.40-12.00) fL Neut % (Auto) 77.2 (48.0-80.0) % Lymph % (Auto) 15.1 L (16.0-40.0) % [place] % (Auto) 6.7 (0.0-15.0) % Eos % (Auto) 0.7 (0.0-7.0) % Baso % (Auto) 0.3 (0.0-1.5) % Neut # (Auto) 5.7 (1.4-5.7) K/uL Lymph # (Auto) 1.1 (0.6-2.4) K/uL [place] # (Auto) 0.5 (0.0-0.8) K/uL Eos # (Auto) 0.1 (0.0-0.7) K/uL Baso # (Auto) 0.0 (0.0-0.1) K/uL Nucleated RBC % 0.0 /100WBC Nucleated RBCs # 0 K/uL INR 1.02 Sodium 142 (136-145) mmol/L Potassium 4.6 (3.5-5.1) mmol/L Chloride 107 (98-107) mmol/L Carbon Dioxide 28.0 (21.0-32.0) mmol/L BUN 18 (7.0-18.0) mg/dL Creatinine 0.7 (0.6-1.0) mg/dL Est Cr Clr Drug Dosing TNP Estimated GFR (MDRD) > 60.0 ml/min Glucose 96 (74-106) mg/dL Calcium 9.1 (8.5-10.1) mg/dL Total Bilirubin 0.6 (0.2-1.0) mg/dL AST 19 (15-37) IU/L ALT 16 (14-63) IU/L Alkaline Phosphatase 102 (46-116) U/L Total Protein 7.4 (6.4-8.2) g/dL Albumin 3.6 (3.4-5.0) g/dL Globulin 3.8 (2.6-4.0) g/dL Albumin/Globulin Ratio 0.9 (0.9-1.6) Result Diagrams: 10/13/19 14:17 10/13/19 14:17 Consult PN Assessment/Plan Procedures: Procedures AIRWAY INHALATION TREATMENT (08/08/19) ASSAY OF LACTIC ACID (10/07/18) ASSAY OF MAGNESIUM (10/07/18) ASSAY OF NATRIURETIC PEPTIDE (08/04/19) ASSAY OF TROPONIN QUANT (08/08/19) BLOOD CULTURE FOR BACTERIA (08/08/19) BLOOD GASES ANY COMBINATION (08/08/19) C-REACTIVE PROTEIN (01/06/17) CHEST X-RAY 2VW FRONTAL&LATL (11/08/17) CO/MEMBANE DIFFUSE CAPACITY (10/03/19) COMPLETE CBC W/AUTO DIFF WBC (08/08/19) COMPREHEN METABOLIC PANEL (08/08/19) CT ANGIOGRAPHY CHEST (10/07/18) CT HEAD/BRAIN W/O DYE (09/13/17) CT THORAX W/O DYE (08/08/19) ELECTROCARDIOGRAM TRACING (08/08/19) EMERGENCY DEPT VISIT (08/08/19) EMERGENCY DEPT VISIT (09/13/17) EVALUATION OF WHEEZING (10/03/19) FNA W/IMAGE (12/24/14) HYDRATE IV INFUSION ADD-ON (08/08/19) METABOLIC PANEL TOTAL CA (08/08/19) PROTHROMBIN TIME (08/04/19) PULM FUNCTION TEST BY GAS (10/03/19) ROUTINE VENIPUNCTURE (08/08/19) RPR S/N/AX/GEN/TRNK 2.5CM/< (09/13/17) TD VACC NO PRESV 7 YRS+ IM (09/13/17) THER/PROPH/DIAG INJ IV PUSH (08/04/19) THER/PROPH/DIAG IV INF INIT (08/08/19) TX/PRO/DX INJ NEW DRUG ADDON (08/08/19) TX/PRO/DX INJ SAME DRUG FORENSIC TOXICOLOGIST (11/09/18) URINALYSIS AUTO W/O SCOPE (08/08/19) WITHDRAWAL OF ARTERIAL BLOOD (08/08/19) X-RAY EXAM CHEST 1 VIEW (08/08/19) X-RAY EXAM CHEST 2 VIEWS (11/09/18) (1) Dislocation of hip, left, closed SNOMED Code(s): 422786906 Code(s): S73.005A - UNSPECIFIED DISLOCATION OF LEFT HIP, INITIAL ENCOUNTER Priority: High Current Visit: Yes Qualifiers: Encounter type: initial encounter Qualified Code(s): S73.005A - Unspecified dislocation of left hip, initial encounter (2) Laceration of scalp SNOMED Code(s): 140247981 Code(s): S01.01XA - LACERATION WITHOUT FOREIGN BODY OF SCALP, INITIAL ENCOUNTER Priority: Medium Current Visit: Yes Qualifiers: Encounter type: initial encounter Qualified Code(s): S01.01XA - Laceration without foreign body of scalp, initial encounter (3) COPD (chronic obstructive pulmonary disease) SNOMED Code(s): 04746379 Code(s): J44.9 - CHRONIC OBSTRUCTIVE PULMONARY DISEASE, UNSPECIFIED Priority: Medium Current Visit: No Qualifiers: COPD type: emphysema (4) Fall SNOMED Code(s): 1721046 Code(s): W19.XXXA - UNSPECIFIED FALL, INITIAL ENCOUNTER Priority: Medium Current Visit: No Onset Date: 07/14/14 Problem List Initiated/Reviewed/Updated: Yes Plan: Patient is hemodynamically stable. There was no loss of consciousness. I see no contraindication to general anesthesia, and relocation of the hip. Pending the outcome of the procedure and recovery, patient may be able to go home this afternoon.
[2019-10-13] MEDS ORDERED: Phenylephrine/Normal Saline 100 MCG/ML 10 ML Syringe ONE (15:55)
--- NOTE | 2019-10-13 16:37 | CR ---
HISTORY: Postreduction left hip. COMPARISON: 10/13/2019. FINDINGS: Single frontal view of the pelvis. The left arthroplasty appears in adequate alignment postreduction. No evidence for acute fracture. Hardware appears intact. Dictated by Alissa Moore MD @ Oct 13 2019 4:36PM Signed by Dr. Alissa Moore @ Oct 13 2019 4:37PM
--- NOTE | 2019-10-13 16:41 | PCM.POSTAN ---
POST ANESTHESIA ASSESSMENT - MENTAL STATUS Mental Status: Alert - VITAL SIGNS Vital Signs: Last Vital Signs Temp 36.1 C 10/13/19 13:03 Pulse 87 10/13/19 16:36 Resp 22 H 10/13/19 16:36 BP 160/65 H 10/13/19 16:36 Pulse Ox 98 10/13/19 16:36 - RESPIRATORY Respiratory Status: Respiratory Rate WNL, O2 Saturation Stable, Supplemental Oxygen - CARDIOVASCULAR CV Status: Pulse Rate WNL - GASTROINTESTINAL GI Status: No Symptoms - POST OP HYDRATION Hydration Status: Adequate & Stable
--- NOTE | 2019-10-13 16:42 | CR ---
HISTORY: Postoperative chest pain. Evaluate for pneumonia. COMPARISON: 08/08/2019. FINDINGS: Mild interstitial prominence is similar to the previous study. No acute focal airspace opacity. No evidence for pneumonia. Stable dense nodule in the left lower lung. Heart size and pulmonary vascularity are within normal limits. Costophrenic angles are sharp. Mild scoliosis. Dictated by Alissa Moore MD @ Oct 13 2019 4:39PM Signed by Dr. Alissa Moore @ Oct 13 2019 4:39PM
--- NOTE | 2019-10-13 16:59 | OR ---
SURGEON: Tay Moore DATE OF PROCEDURE: 10/13/2019 PREOPERATIVE DIAGNOSIS: Left posterior hip arthroplasty dislocation. POSTOPERATIVE DIAGNOSIS: Left posterior hip arthroplasty dislocation. PROCEDURE: Closed reduction, left hip arthroplasty. PRIMARY SURGEON: Tay Moore DO. ANESTHESIA: General endotracheal intubation. FLUID: Lactated Ringer's solution. ESTIMATED BLOOD LOSS: 0. COMPLICATIONS: None. SPECIMEN: None. DISCHARGE DISPOSITION: Stable to PACU. HISTORY AND INDICATIONS FOR THE PROCEDURE: The patient lives just across from the hospital across the [facility]. She had slipped and fell, dislocating her left hip. She was seen at the emergency department where the above-mentioned diagnosis was confirmed. Risks and benefits of the procedure were explained to the patient and her family and informed consent was obtained. DETAILS OF PROCEDURE: The patient was brought to the OR by the Anesthesia staff where general endotracheal intubation was administered. The patient was relaxed. Time-out was called identifying the correct patient, the correct procedure, the correct site. No antibiotics. We put pressure on the right knee and the left ASIS and then with the hip at 90 degrees and the knee at 90 degrees with axial traction, she was relocated. After this had been confirmed via postreduction films, a knee immobilizer was placed. She will be admitted to the Medicine Service with concerns of low O2 saturations and possible suspicion of pneumonia. [id number] / MODL /[id number] MTDD
[2019-10-13] MEDS ORDERED: Ondansetron 4 MG Tab.DIS PO PRN (17:12)
[2019-10-13] MEDS ORDERED: Acetaminophen 325 MG Tab PO PRN (17:12)
--- NOTE | 2019-10-13 17:26 | PCM.HP.2 ---
<Baldev Jenkins M - Last Filed: 10/13/19 17:45> H&P History of Present Illness - General Date of Service: 10/13/19 Source of Information: Patient History Limitations: Reports: No Limitations - History of Present Illness Initial Comments - Free Text/Narative: 84-year-old female presented to ER with left hip pain after slipping and falling outside of her house and landing on her left hip. She has a PMH of SVT, HTN and COPD. She also has a history of bilateral hip replacement. Patient reports that she fell outside of her front door after slipping on ice. She also hit her face on her front door but did not lose consciousness. Patient denied feeling dizzy or passing out. No loss of bowel or bladder control. She was then transported to the ER via EMS. In the ER, X-ray revealed left hip dislocation. CT head was negative but she did sustain laceration which was closed by carlie by ER provider. Orthopedic surgery was consulted by trauma surgeon console assembler who took patient to OR directly from the ER for closed reduction under conscious sedation. After surgery, patient was noted to be hypoxic on RA and had a cough. Patient admitted to general medical floor for further evaluation. Patient does report that she has had a cough for the past few weeks and sometimes coughs up clear whitish sputum. Patient denies any fevers, chills, shortness of breath, chest pain, nausea, diarrhea, blood in stool or blood in urine. She does report using home oxygen occasionally but not regularly and is unsure of how much she uses when she does so. Current every day smoker. left hip Pain Score (Numeric/FACES): 7 - Related Data Allergies/Adverse Reactions: Allergies Allergy/AdvReac Type Severity Reaction Status Date / Time morphine Allergy Vomiting Verified 10/13/19 17:09 Home Medications: Home Meds Azithromycin [Zithromax] 250 mg PO DAILY 4 Days #4 tablet 10/13/19 [Rx] Lisinopril 20 mg PO DAILY 10/13/19 [History] Metoprolol Succinate 50 mg PO DAILY 10/13/19 [History] predniSONE [Prednisone] 40 mg PO DAILY 4 Days #8 tablet 10/13/19 [Rx] rOPINIRole [Requip] 2 mg PO DAILY 10/13/19 [History] traMADol [Ultram] 50 mg PO Q6H PRN #20 tab 10/13/19 [Rx] Past Medical History - Past Health History Medical/Surgical History: Denies Medical/Surgical History Cardiovascular 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: Hypertension, Other (See Below) Other Cardiovascular History: elevated heart rate Respiratory 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: Bronchitis, Recurrent, COPD, SOB Gastrointestinal 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: None Genitourinary 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: None PRESIDENT ERGONOMIC CONSULTING 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: Musculoskeletal 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: Osteoarthritis Neurological 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: None Endocrine/Metabolic 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: None Oncologic (Cancer) 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: None Dermatologic 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: None - Infectious Disease History Infectious Disease 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: Chicken Pox, Measles, Mumps - Past Surgical History GI Surgical 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: Colonoscopy, Polypectomy Female Surgical 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: Hysterectomy, Salpingo-Oophorectomy Endocrine Surgical 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: None Musculoskeletal Surgical 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: Hip Replacement, Knee Replacement Other Musculoskeletal Surgeries/Procedures:: bilateral hip replacement, left knee replacement Social & Family History - Family History Family Medical History: Noncontributory - Tobacco Use Smoking Status *Q: Former Smoker Used Tobacco, but Quit: Yes Month/Year Tobacco Last Used: unk - Caffeine Use Caffeine Use: Reports: Coffee Caffeine Use Comment: 3-4 cups a day - Recreational Drug Use Recreational Drug Use: No H&P Review of Systems - Review of Systems: Review Of Systems: Comprehensive ROS is negative, except as noted in HPI. Exam - Exam Exam: See Below - Vital Signs Vital Signs: Last Vital Signs Temp 97 F 10/13/19 13:03 Pulse 87 10/13/19 16:36 Resp 22 H 10/13/19 16:36 BP 160/65 H 10/13/19 16:36 Pulse Ox 98 10/13/19 16:36 - Exam General: Alert, Oriented, Cooperative HEENT: Conjunctiva Clear, EOMI, Hearing Intact, Mucosa Moist & [place], Posterior Pharynx Clear, Pupils Equal, Pupils Reactive, Other (Dressing over forehead c/d/ i.) Neck: Supple, Trachea Midline Lungs: Normal Respiratory Effort, Other (mild expiratory rhonchi.) Cardiovascular: Regular Rate, Regular Rhythm GI/Abdominal Exam: Normal Bowel Sounds, Soft, Non-Tender, No Distention Extremities: Normal Inspection, No Pedal Edema Peripheral Pulses: 2+: Posterior Tibial (L), Posterior Tibial (R) Skin: Warm, Dry, Intact Neurological: Cranial Nerves Intact, Strength Equal Bilateral, Normal Speech, Normal Tone Neuro Extensive - Mental Status: Alert, Oriented x3, Normal Mood/Affect, Memory Intact - Patient Data Lab Results Last 24 hrs: Laboratory Results - last 24 hr 10/13/19 10/13/19 10/13/19 Range/Units 14:17 14:17 14:17 WBC 7.41 (4.0-11.0) K/uL RBC 4.77 (4.30-5.90) M/uL Hgb 13.9 (12.0-16.0) g/dL Hct 42.9 (36.0-46.0) % MCV 89.9 (80.0-98.0) fL MCH 29.1 (27.0-32.0) pg MCHC 32.4 (31.0-37.0) g/dL RDW Std Deviation 49.2 (28.0-62.0) fl RDW Coeff of Dorinda 15 (11.0-15.0) % Plt Count 125 L (150-400) K/uL MPV 12.30 H (7.40-12.00) fL Neut % (Auto) 77.2 (48.0-80.0) % Lymph % (Auto) 15.1 L (16.0-40.0) % [place] % (Auto) 6.7 (0.0-15.0) % Eos % (Auto) 0.7 (0.0-7.0) % Baso % (Auto) 0.3 (0.0-1.5) % Neut # (Auto) 5.7 (1.4-5.7) K/uL Lymph # (Auto) 1.1 (0.6-2.4) K/uL [place] # (Auto) 0.5 (0.0-0.8) K/uL Eos # (Auto) 0.1 (0.0-0.7) K/uL Baso # (Auto) 0.0 (0.0-0.1) K/uL Nucleated RBC % 0.0 /100WBC Nucleated RBCs # 0 K/uL INR 1.02 Sodium 142 (136-145) mmol/L Potassium 4.6 (3.5-5.1) mmol/L Chloride 107 (98-107) mmol/L Carbon Dioxide 28.0 (21.0-32.0) mmol/L BUN 18 (7.0-18.0) mg/dL Creatinine 0.7 (0.6-1.0) mg/dL Est Cr Clr Drug Dosing TNP Estimated GFR (MDRD) > 60.0 ml/min Glucose 96 (74-106) mg/dL Calcium 9.1 (8.5-10.1) mg/dL Total Bilirubin 0.6 (0.2-1.0) mg/dL AST 19 (15-37) IU/L ALT 16 (14-63) IU/L Alkaline Phosphatase 102 (46-116) U/L Total Protein 7.4 (6.4-8.2) g/dL Albumin 3.6 (3.4-5.0) g/dL Globulin 3.8 (2.6-4.0) g/dL Albumin/Globulin Ratio 0.9 (0.9-1.6) Result Diagrams: 10/13/19 14:17 10/13/19 14:17 Problem List Initiated/Reviewed/Updated: Yes Orders Last 24hrs: Active Orders 24 hr Category Date Time Status Admission Status [Patient Status] [ADT] Routine ADT 10/13/19 16:20 Active Patient Status [ADT] Stat ADT 10/13/19 13:44 Active Communication Order [RC] STAT Care 10/13/19 13:10 Active EKG Documentation Completion [RC] STAT Care 10/13/19 13:09 Active Notify Provider Consults [RC] ASDIRECTED Care 10/13/19 14:30 Active Notify Provider Consults [RC] ASDIRECTED Care 10/13/19 14:40 Active Notify Provider Consults [RC] ASDIRECTED Care 10/13/19 16:03 Active Out of Bed [RC] ASDIRECTED Care 10/13/19 16:43 Active Overnight Pulse Oximetry [RC] Click to Edit Care 10/13/19 16:26 Active Oxygen Therapy [RC] PRN Care 10/13/19 17:12 Ordered RT Aerosol Therapy [RC] ASDIRECTED Care 10/13/19 17:17 Ordered RT Incentive Spirometry [RC] ASDIRECTED Care 10/13/19 17:15 Ordered Telemetry Monitoring [Cardiac Monitoring] [RC] . Care 10/13/19 17:17 Ordered DIRECTED Up With Assistance [RC] ASDIRECTED Care 10/13/19 17:12 Ordered VTE/DVT Education [RC] PER UNIT ROUTINE Care 10/13/19 17:12 Ordered Vaccines to be Administered [RC] PER UNIT ROUTINE Care 10/13/19 13:15 Active Vital Signs [RC] Q4H Care 10/13/19 17:12 Ordered Consult to Physical Therapy [PT Evaluation and Cons 10/13/19 16:47 Active Treatment] [CONS] Routine Consult to Physician [CONS] Routine Cons 10/13/19 16:02 Active Heart Healthy Diet [DIET] Diet 10/13/19 Breakfast Ordered MAGNESIUM [CHEM] Routine Lab 10/13/19 14:17 Received PHOSPHORUS [CHEM] Routine Lab 10/13/19 14:17 Received TSH [CHEM] Routine Lab 10/13/19 14:17 Received UA RFX VANI AND CULT IF INDIC [URIN] Stat Lab 10/13/19 13:09 Ordered Acetaminophen [Tylenol] Med 10/13/19 17:12 Ordered 650 mg PO Q4H PRN Albuterol/Ipratropium [DuoNeb 3.0-0.5 MG/3 ML] Med 10/13/19 18:00 Ordered 3 ml NEB Q4HRRT Heparin Sodium Med 10/13/19 17:15 Ordered 5,000 units SUBCUT Q8H Ondansetron [Zofran ODT] Med 10/13/19 17:12 Ordered 4 mg PO Q4H PRN Sodium Chloride 0.9% [Normal Saline] 1,000 ml Med 10/13/19 14:15 Active IV ASDIRECTED Sodium Chloride 0.9% [Saline Flush] Med 10/13/19 14:04 Active 10 ml FLUSH ASDIRECTED PRN Sodium Chloride 0.9% [Saline Flush] Med 10/13/19 14:04 Active 2.5 ml FLUSH ASDIRECTED PRN traMADol [Ultram] Med 10/13/19 16:46 Active 50 mg PO QID PRN Saline Lock Insert [OM.PC] Stat Oth 10/13/19 14:04 Ordered Weight bearing status [OM.PC] Routine Oth 10/13/19 16:45 Ordered Resuscitation Status Routine Resus Stat 10/13/19 17:12 Ordered Medication Orders Acetaminophen (Tylenol) 650 mg PO Q4H PRN PRN Reason: Pain (Mild 1-3)/fever Albuterol/Ipratropium (Duoneb 3.0-0.5 Mg/3 Ml) 3 ml NEB Q4HRRT MARTHA Heparin Sodium (Porcine) (Heparin Sodium) 5,000 units SUBCUT Q8H MARTHA Sodium Chloride (Normal Saline) 1,000 mls @ 75 mls/hr IV ASDIRECTED MARTHA Last Admin: 10/13/19 14:48 Dose: 75 mls/hr Ondansetron HCl (Zofran Odt) 4 mg PO Q4H PRN PRN Reason: nausea, able to take PO Sodium Chloride (Saline Flush) 10 ml FLUSH ASDIRECTED PRN PRN Reason: Keep Vein Open Sodium Chloride (Saline Flush) 2.5 ml FLUSH ASDIRECTED PRN PRN Reason: Keep Vein Open Tramadol HCl (Ultram) 50 mg PO QID PRN PRN Reason: Pain Assessment/Plan Comment:: Assessment: 1. Acute hypoxic respiratory failure secondary to mild COPD exacerbation vs bronchitis. 2. Left hip dislocation s/p reduction POD#0. 3. Past medical history of HTN, COPD and SVT. Plan: 1. For acute on chronic hypoxic respiratory failure, will continue supplemental oxygen, encourage IS and duonebs q6h. Start PO azithromycin and PO prednisone 40 mg daily. Will check troponin. 2. For left hip dislocation, pain control per orthopedic surgery. PT. 3. For PMH will continue with home medications. VTE prophylaxis: heparin 5000 units q8h subcut. <Opal Hammer - Last Filed: 10/14/19 13:29> H&P History of Present Illness - General Admit Problem/Dx: Admission Diagnosis/Problem Admission Diagnosis/Problem Traumatic injury Exam - Vital Signs Vital Signs: Last Vital Signs Temp 36.7 C 10/14/19 10:00 Pulse 64 10/14/19 10:22 Resp 18 10/14/19 10:00 BP 95/54 L 10/14/19 10:22 Pulse Ox 92 L 10/14/19 10:00 - Patient Data Lab Results Last 24 hrs: Laboratory Results - last 24 hr 10/13/19 10/13/19 10/13/19 Range/Units 06:00 14:17 14:17 WBC 7.41 (4.0-11.0) K/uL RBC 4.77 (4.30-5.90) M/uL Hgb 13.9 (12.0-16.0) g/dL Hct 42.9 (36.0-46.0) % MCV 89.9 (80.0-98.0) fL MCH 29.1 (27.0-32.0) pg MCHC 32.4 (31.0-37.0) g/dL RDW Std Deviation 49.2 (28.0-62.0) fl RDW Coeff of Dorinda 15 (11.0-15.0) % Plt Count 125 L (150-400) K/uL MPV 12.30 H (7.40-12.00) fL Neut % (Auto) 77.2 (48.0-80.0) % Lymph % (Auto) 15.1 L (16.0-40.0) % [place] % (Auto) 6.7 (0.0-15.0) % Eos % (Auto) 0.7 (0.0-7.0) % Baso % (Auto) 0.3 (0.0-1.5) % Neut # (Auto) 5.7 (1.4-5.7) K/uL Lymph # (Auto) 1.1 (0.6-2.4) K/uL [place] # (Auto) 0.5 (0.0-0.8) K/uL Eos # (Auto) 0.1 (0.0-0.7) K/uL Baso # (Auto) 0.0 (0.0-0.1) K/uL Nucleated RBC % 0.0 /100WBC Nucleated RBCs # 0 K/uL INR 1.02 Sodium (136-145) mmol/L Potassium (3.5-5.1) mmol/L Chloride (98-107) mmol/L Carbon Dioxide (21.0-32.0) mmol/L BUN (7.0-18.0) mg/dL Creatinine (0.6-1.0) mg/dL Est Cr Clr Drug Dosing Estimated GFR (MDRD) ml/min Glucose (74-106) mg/dL Calcium (8.5-10.1) mg/dL Phosphorus (2.6-4.7) mg/dL Magnesium (1.8-2.4) mg/dL Total Bilirubin (0.2-1.0) mg/dL AST (15-37) IU/L ALT (14-63) IU/L Alkaline Phosphatase (46-116) U/L Creatine Kinase (26-308) U/L Troponin I (0.000-0.056) ng/mL Total Protein (6.4-8.2) g/dL Albumin (3.4-5.0) g/dL Globulin (2.6-4.0) g/dL Albumin/Globulin Ratio (0.9-1.6) TSH 3rd Generation (0.36-3.74) uIU/mL Urine Color YELLOW Urine Appearance CLEAR Urine pH 5.0 (5.0-8.0) Ur Specific [place] >= 1.030 (1.001-1.035) Urine Protein NEGATIVE (NEGATIVE) mg/dL Urine Glucose (UA) NEGATIVE (NEGATIVE) mg/dL Urine Ketones NEGATIVE (NEGATIVE) mg/dL Urine Occult Blood NEGATIVE (NEGATIVE) Urine Nitrite NEGATIVE (NEGATIVE) Urine Bilirubin NEGATIVE (NEGATIVE) Urine Urobilinogen 0.2 (<2.0) EU/dL Ur Leukocyte Esterase NEGATIVE (NEGATIVE) 10/13/19 10/13/19 10/13/19 Range/Units 14:17 14:17 14:17 WBC (4.0-11.0) K/uL RBC (4.30-5.90) M/uL Hgb (12.0-16.0) g/dL Hct (36.0-46.0) % MCV (80.0-98.0) fL MCH (27.0-32.0) pg MCHC (31.0-37.0) g/dL RDW Std Deviation (28.0-62.0) fl RDW Coeff of Dorinda (11.0-15.0) % Plt Count (150-400) K/uL MPV (7.40-12.00) fL Neut % (Auto) (48.0-80.0) % Lymph % (Auto) (16.0-40.0) % [place] % (Auto) (0.0-15.0) % Eos % (Auto) (0.0-7.0) % Baso % (Auto) (0.0-1.5) % Neut # (Auto) (1.4-5.7) K/uL Lymph # (Auto) (0.6-2.4) K/uL [place] # (Auto) (0.0-0.8) K/uL Eos # (Auto) (0.0-0.7) K/uL Baso # (Auto) (0.0-0.1) K/uL Nucleated RBC % /100WBC Nucleated RBCs # K/uL INR Sodium 142 (136-145) mmol/L Potassium 4.6 (3.5-5.1) mmol/L Chloride 107 (98-107) mmol/L Carbon Dioxide 28.0 (21.0-32.0) mmol/L BUN 18 (7.0-18.0) mg/dL Creatinine 0.7 (0.6-1.0) mg/dL Est Cr Clr Drug Dosing TNP Estimated GFR (MDRD) > 60.0 ml/min Glucose 96 (74-106) mg/dL Calcium 9.1 (8.5-10.1) mg/dL Phosphorus 2.7 (2.6-4.7) mg/dL Magnesium 2.3 (1.8-2.4) mg/dL Total Bilirubin 0.6 (0.2-1.0) mg/dL AST 19 (15-37) IU/L ALT 16 (14-63) IU/L Alkaline Phosphatase 102 (46-116) U/L Creatine Kinase 108 (26-308) U/L Troponin I (0.000-0.056) ng/mL Total Protein 7.4 (6.4-8.2) g/dL Albumin 3.6 (3.4-5.0) g/dL Globulin 3.8 (2.6-4.0) g/dL Albumin/Globulin Ratio 0.9 (0.9-1.6) TSH 3rd Generation 0.83 (0.36-3.74) uIU/mL Urine Color Urine Appearance Urine pH (5.0-8.0) Ur Specific [place] (1.001-1.035) Urine Protein (NEGATIVE) mg/dL Urine Glucose (UA) (NEGATIVE) mg/dL Urine Ketones (NEGATIVE) mg/dL Urine Occult Blood (NEGATIVE) Urine Nitrite (NEGATIVE) Urine Bilirubin (NEGATIVE) Urine Urobilinogen (<2.0) EU/dL Ur Leukocyte Esterase (NEGATIVE) 10/13/19 10/14/1919 Range/Units 14:21 05:40 05:40 WBC 4.69 (4.0-11.0) K/uL RBC 3.78 L (4.30-5.90) M/uL Hgb 10.8 L (12.0-16.0) g/dL Hct 34.2 L (36.0-46.0) % MCV 90.5 (80.0-98.0) fL MCH 28.6 (27.0-32.0) pg MCHC 31.6 (31.0-37.0) g/dL RDW Std Deviation 49.2 (28.0-62.0) fl RDW Coeff of Dorinda 15 (11.0-15.0) % Plt Count 115 L (150-400) K/uL MPV 13.30 H (7.40-12.00) fL Neut % (Auto) 83.4 H (48.0-80.0) % Lymph % (Auto) 10.2 L (16.0-40.0) % [place] % (Auto) 6.2 (0.0-15.0) % Eos % (Auto) 0.0 (0.0-7.0) % Baso % (Auto) 0.2 (0.0-1.5) % Neut # (Auto) 3.9 (1.4-5.7) K/uL Lymph # (Auto) 0.5 L (0.6-2.4) K/uL [place] # (Auto) 0.3 (0.0-0.8) K/uL Eos # (Auto) 0.0 (0.0-0.7) K/uL Baso # (Auto) 0.0 (0.0-0.1) K/uL Nucleated RBC % 0.0 /100WBC Nucleated RBCs # 0 K/uL INR Sodium 142 (136-145) mmol/L Potassium 4.5 (3.5-5.1) mmol/L Chloride 108 H (98-107) mmol/L Carbon Dioxide 28.0 (21.0-32.0) mmol/L BUN 19 H (7.0-18.0) mg/dL Creatinine 0.8 (0.6-1.0) mg/dL Est Cr Clr Drug Dosing TNP Estimated GFR (MDRD) > 60.0 ml/min Glucose 123 H (74-106) mg/dL Calcium 8.3 L (8.5-10.1) mg/dL Phosphorus (2.6-4.7) mg/dL Magnesium (1.8-2.4) mg/dL Total Bilirubin 0.5 (0.2-1.0) mg/dL AST 19 (15-37) IU/L ALT 18 (14-63) IU/L Alkaline Phosphatase 75 (46-116) U/L Creatine Kinase (26-308) U/L Troponin I < 0.050 (0.000-0.056) ng/mL Total Protein 5.8 L (6.4-8.2) g/dL Albumin 2.7 L (3.4-5.0) g/dL Globulin 3.1 (2.6-4.0) g/dL Albumin/Globulin Ratio 0.9 (0.9-1.6) TSH 3rd Generation (0.36-3.74) uIU/mL Urine Color Urine Appearance Urine pH (5.0-8.0) Ur Specific [place] (1.001-1.035) Urine Protein (NEGATIVE) mg/dL Urine Glucose (UA) (NEGATIVE) mg/dL Urine Ketones (NEGATIVE) mg/dL Urine Occult Blood (NEGATIVE) Urine Nitrite (NEGATIVE) Urine Bilirubin (NEGATIVE) Urine Urobilinogen (<2.0) EU/dL Ur Leukocyte Esterase (NEGATIVE) Result Diagrams: 10/14/19 05:40 10/14/19 05:40 Orders Last 24hrs: Active Orders 24 hr Category Date Time Status Admission Status [Patient Status] [ADT] Routine ADT 10/13/19 16:20 Active Patient Status [ADT] Stat ADT 10/13/19 13:44 Active Antiembolic Devices [RC] PER UNIT ROUTINE Care 10/14/19 10:15 Active Communication Order [RC] STAT Care 10/13/19 13:10 Active Notify Provider Consults [RC] ASDIRECTED Care 10/13/19 14:30 Active Notify Provider Consults [RC] ASDIRECTED Care 10/13/19 14:40 Active Notify Provider Consults [RC] ASDIRECTED Care 10/13/19 16:03 Active Out of Bed [RC] ASDIRECTED Care 10/13/19 16:43 Active Overnight Pulse Oximetry [RC] Click to Edit Care 10/13/19 16:26 Active Oxygen Therapy [RC] PRN Care 10/13/19 17:12 Active RT Aerosol Therapy [RC] ASDIRECTED Care 10/13/19 17:17 Active RT Incentive Spirometry [RC] ASDIRECTED Care 10/13/19 17:15 Active Telemetry Monitoring [Cardiac Monitoring] [RC] Q8H Care 10/13/19 17:17 Active Up With Assistance [RC] ASDIRECTED Care 10/13/19 17:12 Active VTE/DVT Education [RC] PER UNIT ROUTINE Care 10/13/19 17:12 Active Vaccines to be Administered [RC] PER UNIT ROUTINE Care 10/13/19 13:15 Active Vital Signs [RC] Q4H Care 10/13/19 17:12 Active Consult to Physical Therapy [PT Evaluation and Cons 10/13/19 16:47 Active Treatment] [CONS] Routine Consult to Physician [CONS] Routine Cons 10/13/19 16:02 Active Acetaminophen [Tylenol] Med 10/13/19 17:12 Active 650 mg PO Q4H PRN Albuterol/Ipratropium [DuoNeb 3.0-0.5 MG/3 ML] Med 10/13/19 17:45 Active 3 ml NEB Q6H Azithromycin [Zithromax] Med 10/14/19 21:00 Active 250 mg PO BEDTIME Metoprolol Succinate [Toprol XL] Med 10/14/19 09:00 Active 50 mg PO DAILY Ondansetron [Zofran ODT] Med 10/13/19 17:12 Active 4 mg PO Q4H PRN Sodium Chloride 0.9% [Normal Saline] 500 ml Med 10/14/19 11:45 Active IV .BOLUS Sodium Chloride 0.9% [Saline Flush] Med 10/13/19 14:04 Active 10 ml FLUSH ASDIRECTED PRN Sodium Chloride 0.9% [Saline Flush] Med 10/13/19 14:04 Active 2.5 ml FLUSH ASDIRECTED PRN predniSONE Med 10/14/19 09:20 Active 40 mg PO DAILY rOPINIRole [Requip] Med 10/14/19 09:00 Active 2 mg PO DAILY traMADol [Ultram] Med 10/13/19 16:46 Active 50 mg PO QID PRN Saline Lock Insert [OM.PC] Stat Oth 10/13/19 14:04 Ordered MYLES Hose [Antiembolic Hose] [OM.PC] Routine Oth 10/14/19 10:15 Ordered Weight bearing status [OM.PC] Routine Oth 10/13/19 16:45 Ordered Resuscitation Status Routine Resus Stat 10/13/19 17:12 Ordered Medication Orders Acetaminophen (Tylenol) 650 mg PO Q4H PRN PRN Reason: Pain (Mild 1-3)/fever Albuterol/Ipratropium (Duoneb 3.0-0.5 Mg/3 Ml) 3 ml NEB Q6H MARTHA Last Admin: 10/14/19 11:49 Dose: 3 ml Admin: 10/14/19 05:58 Dose: 3 ml Admin: 10/13/19 22:55 Dose: 3 ml Admin: 10/13/19 17:56 Dose: 3 ml Azithromycin (Zithromax) 250 mg PO BEDTIME MARTHA Sodium Chloride (Normal Saline) 500 mls @ 999 mls/hr IV .BOLUS [facility] Last Admin: 10/14/19 12:01 Dose: 999 mls/hr Metoprolol Succinate (Toprol Xl) 50 mg PO DAILY [facility] Last Admin: 10/14/19 10:34 Dose: Ondansetron HCl (Zofran Odt) 4 mg PO Q4H PRN PRN Reason: nausea, able to take PO Prednisone (Prednisone) 40 mg PO DAILY [facility] Last Admin: 10/14/19 09:24 Dose: 40 mg Ropinirole HCl (Requip) 2 mg PO DAILY [facility] Last Admin: 10/14/19 09:24 Dose: 2 mg Sodium Chloride (Saline Flush) 10 ml FLUSH ASDIRECTED PRN PRN Reason: Keep Vein Open Sodium Chloride (Saline Flush) 2.5 ml FLUSH ASDIRECTED PRN PRN Reason: Keep Vein Open Tramadol HCl (Ultram) 50 mg PO QID PRN PRN Reason: Pain Last Admin: 10/13/19 17:58 Dose: 50 mg Assessment/Plan Comment:: I performed a history and physical exam of the patient and discussed management with resident. I have reviewed the residents note and agree with documented findings and plan unless otherwise specified in my note.
[2019-10-13] MEDS ORDERED: Azithromycin 250 MG Tab PO ONE (17:43)
[2019-10-13] MEDS: Albuterol/Ipratropium 3.0-0.5 MG/3 ML Neb Soln NEB SCH ×2 (17:56→22:55)
[2019-10-13] MEDS: predniSONE 10 MG Tab PO SCH (17:58)
[2019-10-13] MEDS: traMADol 50 MG Tab PO PRN (17:58)
[2019-10-13] MEDS ORDERED: Albuterol/Ipratropium 3.0-0.5 MG/3 ML Neb Soln NEB SCH (18:00)
[2019-10-13] MEDS: Heparin Sodium 5,000 Units/ML Vial SUBCUT SCH (18:27)
[2019-10-14] MEDS: Heparin Sodium 5,000 Units/ML Vial SUBCUT SCH ×2 (02:57→09:24)
[2019-10-14] MEDS: Albuterol/Ipratropium 3.0-0.5 MG/3 ML Neb Soln NEB SCH ×4 (05:58→23:26)
[2019-10-14 06:46] LABS: BLOOD UREA NITROGEN,BUN 19 mg/dL (7.0-18.0); CHLORIDE,CL 108 mmol/L (98-107); GLUCOSE RANDOM 123 mg/dL (74-106); POTASSIUM,K 4.5 mmol/L (3.5-5.1); SODIUM,NA 142 mmol/L (136-145)
--- NOTE | 2019-10-14 07:14 | PCM48HPAN ---
Post Anesthesia Note - EVALUATION WITHIN 48HRS OF ANESTHETIC Vital Signs in Normal Range: Yes Patient Participated in Evaluation: Yes Respiratory Function Stable: Yes Airway Patent: Yes Cardiovascular Function Stable: Yes Hydration Status Stable: Yes Pain Control Satisfactory: Yes Nausea and Vomiting Control Satisfactory: Yes Mental Status Recovered: Yes Vital Signs: Last Vital Signs Temp 37.1 C 10/14/19 03:01 Pulse 74 10/14/19 03:01 Resp 18 10/14/19 03:01 BP 100/52 L 10/14/19 03:01 Pulse Ox 94 L 10/14/19 03:01
[2019-10-14] MEDS ORDERED: Lisinopril 10 MG Tab PO SCH (09:00)
[2019-10-14] MEDS: rOPINIRole 1 MG Tab PO SCH (09:24)
[2019-10-14] MEDS: predniSONE 20 MG Tab PO SCH (09:24)
[2019-10-14] MEDS: predniSONE 10 MG Tab PO SCH (10:21)
[2019-10-14] MEDS: Metoprolol Succinate 50 MG Tab.ER PO SCH (10:34)
[2019-10-14] MEDS ORDERED: Sodium Chloride 0.9% 500 ML IV SCH (11:45)
--- NOTE | 2019-10-14 14:16 | PCM.PN ---
- General Info Date of Service: 10/14/19 Admission Dx/Problem (Free Text): Admission Diagnosis/Problem Admission Diagnosis/Problem Traumatic injury Functional Status: Reports: Pain Controlled - Review of Systems General: Reports: Weakness. Denies: Fever, Fatigue, Malaise Pulmonary: Denies: Shortness of Breath, Pleuritic Chest Pain, Cough Cardiovascular: Denies: Chest Pain, Palpitations, Dyspnea on Exertion Gastrointestinal: Denies: Abdominal Pain, Constipation Genitourinary: Denies: Dysuria, Frequency Musculoskeletal: Denies: Neck Pain, Shoulder Pain, Arm Pain Skin: Denies: Cyanosis, Jaundice, Mottled - Patient Data Vitals - Most Recent: Last Vital Signs Temp 36.7 C 10/14/19 10:00 Pulse 64 10/14/19 10:22 Resp 18 10/14/19 10:00 BP 95/54 L 10/14/19 10:22 Pulse Ox 92 L 10/14/19 10:00 I&O - Last 24 Hours: Intake & Output 10/13/19 10/14/19 10/14/19 22:59 06:59 14:59 Intake Total 500 675 Output Total 400 Balance 500 275 Lab Results Last 24 Hours: Laboratory Results - last 24 hr 10/13/19 10/13/19 10/13/19 Range/Units 06:00 14:17 14:17 WBC 7.41 (4.0-11.0) K/uL RBC 4.77 (4.30-5.90) M/uL Hgb 13.9 (12.0-16.0) g/dL Hct 42.9 (36.0-46.0) % MCV 89.9 (80.0-98.0) fL MCH 29.1 (27.0-32.0) pg MCHC 32.4 (31.0-37.0) g/dL RDW Std Deviation 49.2 (28.0-62.0) fl RDW Coeff of Dorinda 15 (11.0-15.0) % Plt Count 125 L (150-400) K/uL MPV 12.30 H (7.40-12.00) fL Neut % (Auto) 77.2 (48.0-80.0) % Lymph % (Auto) 15.1 L (16.0-40.0) % [place] % (Auto) 6.7 (0.0-15.0) % Eos % (Auto) 0.7 (0.0-7.0) % Baso % (Auto) 0.3 (0.0-1.5) % Neut # (Auto) 5.7 (1.4-5.7) K/uL Lymph # (Auto) 1.1 (0.6-2.4) K/uL [place] # (Auto) 0.5 (0.0-0.8) K/uL Eos # (Auto) 0.1 (0.0-0.7) K/uL Baso # (Auto) 0.0 (0.0-0.1) K/uL Nucleated RBC % 0.0 /100WBC Nucleated RBCs # 0 K/uL INR 1.02 Sodium (136-145) mmol/L Potassium (3.5-5.1) mmol/L Chloride (98-107) mmol/L Carbon Dioxide (21.0-32.0) mmol/L BUN (7.0-18.0) mg/dL Creatinine (0.6-1.0) mg/dL Est Cr Clr Drug Dosing Estimated GFR (MDRD) ml/min Glucose (74-106) mg/dL Calcium (8.5-10.1) mg/dL Phosphorus (2.6-4.7) mg/dL Magnesium (1.8-2.4) mg/dL Total Bilirubin (0.2-1.0) mg/dL AST (15-37) IU/L ALT (14-63) IU/L Alkaline Phosphatase (46-116) U/L Creatine Kinase (26-308) U/L Troponin I (0.000-0.056) ng/mL Total Protein (6.4-8.2) g/dL Albumin (3.4-5.0) g/dL Globulin (2.6-4.0) g/dL Albumin/Globulin Ratio (0.9-1.6) TSH 3rd Generation (0.36-3.74) uIU/mL Urine Color YELLOW Urine Appearance CLEAR Urine pH 5.0 (5.0-8.0) Ur Specific [place] >= 1.030 (1.001-1.035) Urine Protein NEGATIVE (NEGATIVE) mg/dL Urine Glucose (UA) NEGATIVE (NEGATIVE) mg/dL Urine Ketones NEGATIVE (NEGATIVE) mg/dL Urine Occult Blood NEGATIVE (NEGATIVE) Urine Nitrite NEGATIVE (NEGATIVE) Urine Bilirubin NEGATIVE (NEGATIVE) Urine Urobilinogen 0.2 (<2.0) EU/dL Ur Leukocyte Esterase NEGATIVE (NEGATIVE) 10/13/19 10/13/19 10/13/19 Range/Units 14:17 14:17 14:17 WBC (4.0-11.0) K/uL RBC (4.30-5.90) M/uL Hgb (12.0-16.0) g/dL Hct (36.0-46.0) % MCV (80.0-98.0) fL MCH (27.0-32.0) pg MCHC (31.0-37.0) g/dL RDW Std Deviation (28.0-62.0) fl RDW Coeff of Dorinda (11.0-15.0) % Plt Count (150-400) K/uL MPV (7.40-12.00) fL Neut % (Auto) (48.0-80.0) % Lymph % (Auto) (16.0-40.0) % [place] % (Auto) (0.0-15.0) % Eos % (Auto) (0.0-7.0) % Baso % (Auto) (0.0-1.5) % Neut # (Auto) (1.4-5.7) K/uL Lymph # (Auto) (0.6-2.4) K/uL [place] # (Auto) (0.0-0.8) K/uL Eos # (Auto) (0.0-0.7) K/uL Baso # (Auto) (0.0-0.1) K/uL Nucleated RBC % /100WBC Nucleated RBCs # K/uL INR Sodium 142 (136-145) mmol/L Potassium 4.6 (3.5-5.1) mmol/L Chloride 107 (98-107) mmol/L Carbon Dioxide 28.0 (21.0-32.0) mmol/L BUN 18 (7.0-18.0) mg/dL Creatinine 0.7 (0.6-1.0) mg/dL Est Cr Clr Drug Dosing TNP Estimated GFR (MDRD) > 60.0 ml/min Glucose 96 (74-106) mg/dL Calcium 9.1 (8.5-10.1) mg/dL Phosphorus 2.7 (2.6-4.7) mg/dL Magnesium 2.3 (1.8-2.4) mg/dL Total Bilirubin 0.6 (0.2-1.0) mg/dL AST 19 (15-37) IU/L ALT 16 (14-63) IU/L Alkaline Phosphatase 102 (46-116) U/L Creatine Kinase 108 (26-308) U/L Troponin I (0.000-0.056) ng/mL Total Protein 7.4 (6.4-8.2) g/dL Albumin 3.6 (3.4-5.0) g/dL Globulin 3.8 (2.6-4.0) g/dL Albumin/Globulin Ratio 0.9 (0.9-1.6) TSH 3rd Generation 0.83 (0.36-3.74) uIU/mL Urine Color Urine Appearance Urine pH (5.0-8.0) Ur Specific [place] (1.001-1.035) Urine Protein (NEGATIVE) mg/dL Urine Glucose (UA) (NEGATIVE) mg/dL Urine Ketones (NEGATIVE) mg/dL Urine Occult Blood (NEGATIVE) Urine Nitrite (NEGATIVE) Urine Bilirubin (NEGATIVE) Urine Urobilinogen (<2.0) EU/dL Ur Leukocyte Esterase (NEGATIVE) 10/13/19 10/14/19 10/14/19 Range/Units 14:21 05:40 05:40 WBC 4.69 (4.0-11.0) K/uL RBC 3.78 L (4.30-5.90) M/uL Hgb 10.8 L (12.0-16.0) g/dL Hct 34.2 L (36.0-46.0) % MCV 90.5 (80.0-98.0) fL MCH 28.6 (27.0-32.0) pg MCHC 31.6 (31.0-37.0) g/dL RDW Std Deviation 49.2 (28.0-62.0) fl RDW Coeff of Dorinda 15 (11.0-15.0) % Plt Count 115 L (150-400) K/uL MPV 13.30 H (7.40-12.00) fL Neut % (Auto) 83.4 H (48.0-80.0) % Lymph % (Auto) 10.2 L (16.0-40.0) % [place] % (Auto) 6.2 (0.0-15.0) % Eos % (Auto) 0.0 (0.0-7.0) % Baso % (Auto) 0.2 (0.0-1.5) % Neut # (Auto) 3.9 (1.4-5.7) K/uL Lymph # (Auto) 0.5 L (0.6-2.4) K/uL [place] # (Auto) 0.3 (0.0-0.8) K/uL Eos # (Auto) 0.0 (0.0-0.7) K/uL Baso # (Auto) 0.0 (0.0-0.1) K/uL Nucleated RBC % 0.0 /100WBC Nucleated RBCs # 0 K/uL INR Sodium 142 (136-145) mmol/L Potassium 4.5 (3.5-5.1) mmol/L Chloride 108 H (98-107) mmol/L Carbon Dioxide 28.0 (21.0-32.0) mmol/L BUN 19 H (7.0-18.0) mg/dL Creatinine 0.8 (0.6-1.0) mg/dL Est Cr Clr Drug Dosing TNP Estimated GFR (MDRD) > 60.0 ml/min Glucose 123 H (74-106) mg/dL Calcium 8.3 L (8.5-10.1) mg/dL Phosphorus (2.6-4.7) mg/dL Magnesium (1.8-2.4) mg/dL Total Bilirubin 0.5 (0.2-1.0) mg/dL AST 19 (15-37) IU/L ALT 18 (14-63) IU/L Alkaline Phosphatase 75 (46-116) U/L Creatine Kinase (26-308) U/L Troponin I < 0.050 (0.000-0.056) ng/mL Total Protein 5.8 L (6.4-8.2) g/dL Albumin 2.7 L (3.4-5.0) g/dL Globulin 3.1 (2.6-4.0) g/dL Albumin/Globulin Ratio 0.9 (0.9-1.6) TSH 3rd Generation (0.36-3.74) uIU/mL Urine Color Urine Appearance Urine pH (5.0-8.0) Ur Specific [place] (1.001-1.035) Urine Protein (NEGATIVE) mg/dL Urine Glucose (UA) (NEGATIVE) mg/dL Urine Ketones (NEGATIVE) mg/dL Urine Occult Blood (NEGATIVE) Urine Nitrite (NEGATIVE) Urine Bilirubin (NEGATIVE) Urine Urobilinogen (<2.0) EU/dL Ur Leukocyte Esterase (NEGATIVE) Med Orders - Current: Current Medications Acetaminophen (Tylenol) 650 mg PO Q4H PRN PRN Reason: Pain (Mild 1-3)/fever Albuterol/Ipratropium (Duoneb 3.0-0.5 Mg/3 Ml) 3 ml NEB Q6H [facility] Last Admin: 10/14/19 11:49 Dose: 3 ml Azithromycin (Zithromax) 250 mg PO BEDTIME [facility] Sodium Chloride (Normal Saline) 500 mls @ 999 mls/hr IV .BOLUS [facility] Last Admin: 10/14/19 12:01 Dose: 999 mls/hr Metoprolol Succinate (Toprol Xl) 50 mg PO DAILY [facility] Last Admin: 10/14/19 10:34 Dose: Not Given Ondansetron HCl (Zofran Odt) 4 mg PO Q4H PRN PRN Reason: nausea, able to take PO Prednisone (Prednisone) 40 mg PO DAILY [facility] Last Admin: 10/14/19 09:24 Dose: 40 mg Ropinirole HCl (Requip) 2 mg PO DAILY [facility] Last Admin: 10/14/19 09:24 Dose: 2 mg Sodium Chloride (Saline Flush) 10 ml FLUSH ASDIRECTED PRN PRN Reason: Keep Vein Open Sodium Chloride (Saline Flush) 2.5 ml FLUSH ASDIRECTED PRN PRN Reason: Keep Vein Open Tramadol HCl (Ultram) 50 mg PO QID PRN PRN Reason: Pain Last Admin: 10/13/19 17:58 Dose: 50 mg Discontinued Medications Albuterol/Ipratropium (Duoneb 3.0-0.5 Mg/3 Ml) 3 ml NEB Q4HRRT [facility] Azithromycin (Zithromax) 500 mg PO Q24H ONE Stop: 10/13/19 17:44 Last Admin: 10/13/19 18:26 Dose: 500 mg Bacitracin (Bacitracin Oint 1 Gm) 1 dose TOP ONETIME ONE Stop: 10/13/19 14:17 Last Admin: 10/13/19 14:50 Dose: 1 dose Fentanyl (Fentanyl) 25 mcg IVPUSH ONETIME ONE Stop: 10/13/19 14:04 Last Admin: 10/13/19 14:24 Dose: Not Given Fentanyl (Sublimaze) Confirm Administered Dose 100 mcg .ROUTE .STK-MED ONE Stop: 10/13/19 14:22 Last Admin: 10/13/19 14:55 Dose: Not Given Fentanyl (Fentanyl) 25 mcg IVPUSH ONETIME ONE Stop: 10/13/19 14:53 Last Admin: 10/13/19 14:55 Dose: 25 mcg Fentanyl (Sublimaze) Confirm Administered Dose 100 mcg .ROUTE .STK-MED ONE Stop: 10/13/19 15:16 Heparin Sodium (Porcine) (Heparin Sodium) 5,000 units SUBCUT Q8H [facility] Last Admin: 10/14/19 09:24 Dose: 5,000 units Sodium Chloride (Normal Saline) 1,000 mls @ 75 mls/hr IV ASDIRECTED [facility] Last Admin: 10/13/19 14:48 Dose: 75 mls/hr Lidocaine (Xylocaine-Mpf 2%) Confirm Administered Dose 5 ml .ROUTE .STK-MED ONE Stop: 10/13/19 15:17 Lidocaine/Epinephrine (Xylocaine 1% With Epinephrine 1:100,000) 20 ml INJECT ONETIME ONE Stop: 10/13/19 13:36 Last Admin: 10/13/19 14:48 Dose: 20 ml Lisinopril (Prinivil) 20 mg PO DAILY [facility] Last Admin: 10/14/19 10:21 Dose: Not Given Midazolam HCl (Versed 1 Mg/Ml) Confirm Administered Dose 2 mg .ROUTE .STK-MED ONE Stop: 10/13/19 15:18 Ondansetron HCl (Zofran) 4 mg IVPUSH ONETIME ONE Stop: 10/13/19 14:04 Last Admin: 10/13/19 14:49 Dose: 4 mg Ondansetron HCl (Zofran) Confirm Administered Dose 4 mg .ROUTE .STK-MED ONE Stop: 10/13/19 15:17 Phenylephrine HCl (Phenylephrine In Ns 100 Mcg/Ml) Confirm Administered Dose 1 mg .ROUTE .STK-MED ONE Stop: 10/13/19 15:56 Prednisone (Prednisone) 40 mg PO DAILY [facility] Last Admin: 10/14/19 10:21 Dose: Not Given Propofol (Diprivan 20 Ml) Confirm Administered Dose 200 mg .ROUTE .STK-MED ONE Stop: 10/13/19 15:16 Succinylcholine Chloride (Succinylcholine Chloride) Confirm Administered Dose 200 mg .ROUTE .STK-MED ONE Stop: 10/13/19 15:17 Tetanus/Diphtheria Toxoids (Tenivac) 0.5 ml IM .ONCE ONE Stop: 10/13/19 13:15 Last Admin: 10/13/19 14:48 Dose: 0.5 ml - Exam General: Alert, Oriented, Cooperative, No Acute Distress Neck: Supple, Trachea Midline, Other (forehead laceration s/p closure) Lungs: Clear to Auscultation, Normal Respiratory Effort Cardiovascular: Regular Rate, Regular Rhythm GI/Abdominal Exam: Normal Bowel Sounds, Soft, Non-Tender Extremities: Normal Inspection, Normal Range of Motion Peripheral Pulses: 3+: Dorsalis Pedis (L), Dorsalis Pedis (R) Skin: Warm - Problem List & Annotations (1) Dislocation of hip, left, closed SNOMED Code(s): 776722853 Code(s): S73.005A - UNSPECIFIED DISLOCATION OF LEFT HIP, INITIAL ENCOUNTER Status: Acute Priority: High Current Visit: Yes Qualifiers: Encounter type: initial encounter Qualified Code(s): S73.005A - Unspecified dislocation of left hip, initial encounter (2) Laceration of scalp SNOMED Code(s): 832050427 Code(s): S01.01XA - LACERATION WITHOUT FOREIGN BODY OF SCALP, INITIAL ENCOUNTER Status: Acute Priority: Medium Current Visit: Yes Qualifiers: Encounter type: initial encounter Qualified Code(s): S01.01XA - Laceration without foreign body of scalp, initial encounter (3) COPD (chronic obstructive pulmonary disease) SNOMED Code(s): 66728045 Code(s): J44.9 - CHRONIC OBSTRUCTIVE PULMONARY DISEASE, UNSPECIFIED Status : Acute Priority: Medium Current Visit: No Qualifiers: COPD type: emphysema (4) Fall SNOMED Code(s): 0382691 Code(s): W19.XXXA - UNSPECIFIED FALL, INITIAL ENCOUNTER Status: Acute Priority: Medium Current Visit: No Onset Date: 07/14/14 (5) Hypoxemia SNOMED Code(s): 214289983 Code(s): R09.02 - HYPOXEMIA Status: Acute Current Visit: No - Problem List Review Problem List Initiated/Reviewed/Updated: Yes - My Orders Last 24 Hours: My Active Orders 10/14/19 10:15 Antiembolic Devices [RC] PER UNIT ROUTINE MYLES Hose [Antiembolic Hose] [OM.PC] Routine 10/14/19 11:45 Sodium Chloride 0.9% [Normal Saline] 500 ml IV .BOLUS - Plan Plan:: Plan: 1. For acute on chronic hypoxic respiratory failure, will continue supplemental oxygen, encourage IS and duonebs q6h. Start PO azithromycin and PO prednisone 40 mg daily. Will check troponin. 2. For left hip dislocation, pain control per orthopedic surgery. PT. 3 Forehead laceration, s/o closure by carlie, cont wound care 4. For PMH will continue with home medications. 5.Anemia: Drop in Hb today. no active bleeding noted.Will hold on Heparin and switch to MYLES stockings for DVT ppx
[2019-10-14] MEDS ORDERED: Azithromycin 250 MG Tab PO SCH (21:00)
[2019-10-15] MEDS: traMADol 50 MG Tab PO PRN (00:45)
[2019-10-15] MEDS: Albuterol/Ipratropium 3.0-0.5 MG/3 ML Neb Soln NEB SCH ×2 (05:59→11:20)
[2019-10-15 06:56] LABS: BLOOD UREA NITROGEN,BUN 18 mg/dL (7.0-18.0); CARBON DIOXIDE,CO2 28.6 mmol/L (21.0-32.0); CHLORIDE,CL 106 mmol/L (98-107); GLUCOSE RANDOM 94 mg/dL (74-106); POTASSIUM,K 3.9 mmol/L (3.5-5.1); SODIUM,NA 142 mmol/L (136-145)
[2019-10-15] MEDS: rOPINIRole 1 MG Tab PO SCH (08:55)
[2019-10-15] MEDS: predniSONE 20 MG Tab PO SCH (08:56)
[2019-10-15] MEDS: Metoprolol Succinate 50 MG Tab.ER PO SCH (09:06)
--- NOTE | 2019-10-15 11:35 | PCM.DCSUM1 ---
<Baldev Jenkins - Last Filed: 10/15/19 13:08> Discharge Summary - Hospital Course Free Text/Narrative:: 84-year-old female admitted for left hip dislocation and acute hypoxic respiratory failure secondary to mild COPD exacerbation vs bronchitis. Patient has a PMH of HTN, COPD and SVT. Patient fell and slipped on ice outside of her home and suffered a left hip dislocation. Orthopedic surgery consulted and reduced the left hip under conscious sedation. Patient noted to be hypoxic on room air after the procedure. CXR showed no pneumonia and stable left lung nodule, which will need to be monitored by PCP. Patient successfully weaned off of oxygen on day of discharge and was started on prednisone 40 mg daily and azithromycin PO. Furthermore, her hemoglobin was noted to be decreasing slowly during her hospitalization. On day of discharge, hemoglobin level was 9.9. Script provided to recheck hemoglobin in 4-5 days with results sent to her PCP Dr. Sepulveda. Pain discharged with script for prednisone 40 mg daily x 4 days, azithromycin 250 mg PO x 3 more days and short-term course of ultram 50 mg QID prn pain. Per orthopedic surgery, patient is to wear leg immobilizer until when she is out of her bed. - Discharge Data Discharge Date: 10/15/19 Discharge Disposition: Home, Self-Care 01 Condition: Stable - Referral to Home Health Primary Care Physician: PCP Unknown - Patient Summary/Data Consults: Consultations 10/13/19 16:02 Consult to Physician [CONS] Routine 10/13/19 16:47 Consult to Physical Therapy [PT Evaluation and Treatment] [CONS] Routine - Patient Instructions Diet: Usual Diet as Tolerated Activity: As Tolerated Notify Provider of: Fever, Increased Pain, Swelling and Redness, Drainage, Nausea and/or Vomiting Other/Special Instructions: Per orthopedic surgery, patient to wear immobilizer when out of bed until 10/18/19. - Discharge Plan *PRESCRIPTION DRUG MONITORING PROGRAM REVIEWED*: Not Applicable *COPY OF PRESCRIPTION DRUG MONITORING REPORT IN PATIENT LETHA: Not Applicable Prescriptions/Med Rec: Azithromycin 250 mg PO DAILY 3 Days #3 tablet predniSONE [Prednisone] 40 mg PO DAILY 4 Days #8 tablet traMADol [Ultram] 50 mg PO QID PRN 4 Days #16 tablet PRN Reason: Pain Home Medications: Home Meds Lisinopril 20 mg PO DAILY 10/13/19 [History] Metoprolol Succinate 50 mg PO DAILY 10/13/19 [History] predniSONE [Prednisone] 40 mg PO DAILY 4 Days #8 tablet 10/13/19 [Rx] rOPINIRole [Requip] 2 mg PO DAILY 10/13/19 [History] traMADol [Ultram] 50 mg PO Q6H PRN #20 tab 10/13/19 [Rx] Azithromycin 250 mg PO DAILY 3 Days #3 tablet 10/15/19 [Rx] traMADol [Ultram] 50 mg PO QID PRN 4 Days #16 tablet 10/15/19 [Rx] Patient Handouts: Chronic Obstructive Pulmonary Disease Exacerbation, Easy-to- Read, Tramadol tablets, Azithromycin tablets, Closed Reduction for Prosthetic Hip Joint Dislocation, Care After, Prednisone tablets Referrals: [facility] [Outside] Christina Santiago NP [Nurse Practitioner] - 10/25/19 2:00 pm Charlie Sepulveda MD [Physician] - 11/01/19 10:15 am - Discharge Summary/Plan Comment DC Time >30 min.: No - Patient Data Vitals - Most Recent: Last Vital Signs Temp 97.8 F 10/15/19 08:00 Pulse 69 10/15/19 08:00 Resp 18 10/15/19 08:00 BP 124/60 10/15/19 08:00 Pulse Ox 95 10/15/19 08:00 I&O - Last 24 hours: Intake & Output 10/14/19 10/15/19 10/15/19 22:59 06:59 14:59 Intake Total 1020 920 Output Total 650 750 Balance 370 170 Lab Results - Last 24 hrs: Laboratory Results - last 24 hr 10/15/19 10/15/19 Range/Units 05:58 05:58 WBC 6.61 (4.0-11.0) K/uL RBC 3.44 L (4.30-5.90) M/uL Hgb 9.9 L (12.0-16.0) g/dL Hct 30.6 L (36.0-46.0) % MCV 89.0 (80.0-98.0) fL MCH 28.8 (27.0-32.0) pg MCHC 32.4 (31.0-37.0) g/dL RDW Std Deviation 47.6 (28.0-62.0) fl RDW Coeff of Dorinda 15 (11.0-15.0) % Plt Count 100 L (150-400) K/uL MPV 13.00 H (7.40-12.00) fL Neut % (Auto) 73.5 (48.0-80.0) % Lymph % (Auto) 15.7 L (16.0-40.0) % Carson % (Auto) 10.4 (0.0-15.0) % Eos % (Auto) 0.2 (0.0-7.0) % Baso % (Auto) 0.2 (0.0-1.5) % Neut # (Auto) 4.9 (1.4-5.7) K/uL Lymph # (Auto) 1.0 (0.6-2.4) K/uL Carson # (Auto) 0.7 (0.0-0.8) K/uL Eos # (Auto) 0.0 (0.0-0.7) K/uL Baso # (Auto) 0.0 (0.0-0.1) K/uL Nucleated RBC % 0.0 /100WBC Nucleated RBCs # 0 K/uL Sodium 142 (136-145) mmol/L Potassium 3.9 (3.5-5.1) mmol/L Chloride 106 (98-107) mmol/L Carbon Dioxide 28.6 (21.0-32.0) mmol/L BUN 18 (7.0-18.0) mg/dL Creatinine 0.8 (0.6-1.0) mg/dL Est Cr Clr Drug Dosing TNP Estimated GFR (MDRD) > 60.0 ml/min Glucose 94 (74-106) mg/dL Calcium 8.2 L (8.5-10.1) mg/dL Phosphorus 3.0 (2.6-4.7) mg/dL Magnesium 2.0 (1.8-2.4) mg/dL Med Orders - Current: Current Medications Acetaminophen (Tylenol) 650 mg PO Q4H PRN PRN Reason: Pain (Mild 1-3)/fever Last Admin: 10/15/19 02:35 Dose: 650 mg Albuterol/Ipratropium (Duoneb 3.0-0.5 Mg/3 Ml) 3 ml NEB Q6H MARTHA Last Admin: 10/15/19 11:20 Dose: 3 ml Azithromycin (Zithromax) 250 mg PO BEDTIME [facility] Last Admin: 10/14/19 20:45 Dose: 250 mg Sodium Chloride (Normal Saline) 500 mls @ 999 mls/hr IV .BOLUS [facility] Last Admin: 10/14/19 12:01 Dose: 999 mls/hr Metoprolol Succinate (Toprol Xl) 50 mg PO DAILY [facility] Last Admin: 10/15/19 09:06 Dose: Not Given Ondansetron HCl (Zofran Odt) 4 mg PO Q4H PRN PRN Reason: nausea, able to take PO Prednisone (Prednisone) 40 mg PO DAILY [facility] Last Admin: 10/15/19 08:56 Dose: 40 mg Ropinirole HCl (Requip) 2 mg PO DAILY [facility] Last Admin: 10/15/19 08:55 Dose: 2 mg Sodium Chloride (Saline Flush) 10 ml FLUSH ASDIRECTED PRN PRN Reason: Keep Vein Open Sodium Chloride (Saline Flush) 2.5 ml FLUSH ASDIRECTED PRN PRN Reason: Keep Vein Open Tramadol HCl (Ultram) 50 mg PO QID PRN PRN Reason: Pain Last Admin: 10/15/19 00:45 Dose: 50 mg Discontinued Medications Albuterol/Ipratropium (Duoneb 3.0-0.5 Mg/3 Ml) 3 ml NEB Q4HRRT [facility] Azithromycin (Zithromax) 500 mg PO Q24H ONE Stop: 10/13/19 17:44 Last Admin: 10/13/19 18:26 Dose: 500 mg Bacitracin (Bacitracin Oint 1 Gm) 1 dose TOP ONETIME ONE Stop: 10/13/19 14:17 Last Admin: 10/13/19 14:50 Dose: 1 dose Fentanyl (Fentanyl) 25 mcg IVPUSH ONETIME ONE Stop: 10/13/19 14:04 Last Admin: 10/13/19 14:24 Dose: Not Given Fentanyl (Sublimaze) Confirm Administered Dose 100 mcg .ROUTE .STK-MED ONE Stop: 10/13/19 14:22 Last Admin: 10/13/19 14:55 Dose: Not Given Fentanyl (Fentanyl) 25 mcg IVPUSH ONETIME ONE Stop: 10/13/19 14:53 Last Admin: 10/13/19 14:55 Dose: 25 mcg Fentanyl (Sublimaze) Confirm Administered Dose 100 mcg .ROUTE .STK-MED ONE Stop: 10/13/19 15:16 Heparin Sodium (Porcine) (Heparin Sodium) 5,000 units SUBCUT Q8H [facility] Last Admin: 10/14/19 09:24 Dose: 5,000 units Sodium Chloride (Normal Saline) 1,000 mls @ 75 mls/hr IV ASDIRECTED [facility] Last Admin: 10/13/19 14:48 Dose: 75 mls/hr Lidocaine (Xylocaine-Mpf 2%) Confirm Administered Dose 5 ml .ROUTE .STK-MED ONE Stop: 10/13/19 15:17 Lidocaine/Epinephrine (Xylocaine 1% With Epinephrine 1:100,000) 20 ml INJECT ONETIME ONE Stop: 10/13/19 13:36 Last Admin: 10/13/19 14:48 Dose: 20 ml Lisinopril (Prinivil) 20 mg PO DAILY [facility] Last Admin: 10/14/19 10:21 Dose: Not Given Midazolam HCl (Versed 1 Mg/Ml) Confirm Administered Dose 2 mg .ROUTE .STK-MED ONE Stop: 10/13/19 15:18 Ondansetron HCl (Zofran) 4 mg IVPUSH ONETIME ONE Stop: 10/13/19 14:04 Last Admin: 10/13/19 14:49 Dose: 4 mg Ondansetron HCl (Zofran) Confirm Administered Dose 4 mg .ROUTE .STK-MED ONE Stop: 10/13/19 15:17 Phenylephrine HCl (Phenylephrine In Ns 100 Mcg/Ml) Confirm Administered Dose 1 mg .ROUTE .STK-MED ONE Stop: 10/13/19 15:56 Prednisone (Prednisone) 40 mg PO DAILY [facility] Last Admin: 10/14/19 10:21 Dose: Not Given Propofol (Diprivan 20 Ml) Confirm Administered Dose 200 mg .ROUTE .STK-MED ONE Stop: 10/13/19 15:16 Succinylcholine Chloride (Succinylcholine Chloride) Confirm Administered Dose 200 mg .ROUTE .STK-MED ONE Stop: 10/13/19 15:17 Tetanus/Diphtheria Toxoids (Tenivac) 0.5 ml IM .ONCE ONE Stop: 10/13/19 13:15 Last Admin: 10/13/19 14:48 Dose: 0.5 ml <Opal Hammer - Last Filed: 10/16/19 11:53> Discharge Summary - Hospital Course HPI Initial Comments: I have seen and evaluated the patient and agree with the residents note unless specified in my note - Referral to Home Health Primary Care Physician: PCP Unknown - Discharge Diagnosis/Problem(s) (1) Dislocation of hip, left, closed SNOMED Code(s): 591998337 ICD Code: S73.005A - UNSPECIFIED DISLOCATION OF LEFT HIP, INITIAL ENCOUNTER Status: Acute Priority: High Qualifiers: Encounter type: initial encounter Qualified Code(s): S73.005A - Unspecified dislocation of left hip, initial encounter (2) Laceration of scalp SNOMED Code(s): 404952727 ICD Code: S01.01XA - LACERATION WITHOUT FOREIGN BODY OF SCALP, INITIAL ENCOUNTER Status: Acute Priority: Medium Qualifiers: Encounter type: initial encounter Qualified Code(s): S01.01XA - Laceration without foreign body of scalp, initial encounter (3) COPD (chronic obstructive pulmonary disease) SNOMED Code(s): 19344379 ICD Code: J44.9 - CHRONIC OBSTRUCTIVE PULMONARY DISEASE, UNSPECIFIED Status : Acute Priority: Medium Qualifiers: COPD type: emphysema (4) Fall SNOMED Code(s): 8156022 ICD Code: W19.XXXA - UNSPECIFIED FALL, INITIAL ENCOUNTER Status: Acute Priority: Medium Onset Date: 07/14/14 (5) Hypoxemia SNOMED Code(s): 735367630 ICD Code: R09.02 - HYPOXEMIA Status: Acute - Patient Summary/Data Consults: Consultations 10/13/19 16:02 Consult to Physician [CONS] Routine 10/13/19 16:47 Consult to Physical Therapy [PT Evaluation and Treatment] [CONS] Routine - Patient Data Vitals - Most Recent: Last Vital Signs Temp 37.2 C 10/15/19 12:00 Pulse 71 10/15/19 12:00 Resp 18 10/15/19 12:00 BP 142/66 H 10/15/19 12:00 Pulse Ox 94 L 10/15/19 12:00 Med Orders - Current: Current Medications Discontinued Medications Acetaminophen (Tylenol) 650 mg PO Q4H PRN PRN Reason: Pain (Mild 1-3)/fever Last Admin: 10/15/19 02:35 Dose: 650 mg Albuterol/Ipratropium (Duoneb 3.0-0.5 Mg/3 Ml) 3 ml NEB Q4HRRT [facility] Albuterol/Ipratropium (Duoneb 3.0-0.5 Mg/3 Ml) 3 ml NEB Q6H [facility] Last Admin: 10/15/19 11:20 Dose: 3 ml Azithromycin (Zithromax) 500 mg PO Q24H ONE Stop: 10/13/19 17:44 Last Admin: 10/13/19 18:26 Dose: 500 mg Azithromycin (Zithromax) 250 mg PO BEDTIME [facility] Last Admin: 10/14/19 20:45 Dose: 250 mg Bacitracin (Bacitracin Oint 1 Gm) 1 dose TOP ONETIME ONE Stop: 10/13/19 14:17 Last Admin: 10/13/19 14:50 Dose: 1 dose Fentanyl (Fentanyl) 25 mcg IVPUSH ONETIME ONE Stop: 10/13/19 14:04 Last Admin: 10/13/19 14:24 Dose: Not Given Fentanyl (Sublimaze) Confirm Administered Dose 100 mcg .ROUTE .STK-MED ONE Stop: 10/13/19 14:22 Last Admin: 10/13/19 14:55 Dose: Not Given Fentanyl (Fentanyl) 25 mcg IVPUSH ONETIME ONE Stop: 10/13/19 14:53 Last Admin: 10/13/19 14:55 Dose: 25 mcg Fentanyl (Sublimaze) Confirm Administered Dose 100 mcg .ROUTE .STK-MED ONE Stop: 10/13/19 15:16 Heparin Sodium (Porcine) (Heparin Sodium) 5,000 units SUBCUT Q8H [facility] Last Admin: 10/14/19 09:24 Dose: 5,000 units Sodium Chloride (Normal Saline) 1,000 mls @ 75 mls/hr IV ASDIRECTED [facility] Last Admin: 10/13/19 14:48 Dose: 75 mls/hr Sodium Chloride (Normal Saline) 500 mls @ 999 mls/hr IV .BOLUS [facility] Last Admin: 10/14/19 12:01 Dose: 999 mls/hr Lidocaine (Xylocaine-Mpf 2%) Confirm Administered Dose 5 ml .ROUTE .STK-MED ONE Stop: 10/13/19 15:17 Lidocaine/Epinephrine (Xylocaine 1% With Epinephrine 1:100,000) 20 ml INJECT ONETIME ONE Stop: 10/13/19 13:36 Last Admin: 10/13/19 14:48 Dose: 20 ml Lisinopril (Prinivil) 20 mg PO DAILY [facility] Last Admin: 10/14/19 10:21 Dose: Not Given Metoprolol Succinate (Toprol Xl) 50 mg PO DAILY [facility] Last Admin: 10/15/19 09:06 Dose: Not Given Midazolam HCl (Versed 1 Mg/Ml) Confirm Administered Dose 2 mg .ROUTE .STK-MED ONE Stop: 10/13/19 15:18 Ondansetron HCl (Zofran) 4 mg IVPUSH ONETIME ONE Stop: 10/13/19 14:04 Last Admin: 10/13/19 14:49 Dose: 4 mg Ondansetron HCl (Zofran) Confirm Administered Dose 4 mg .ROUTE .K-MED ONE Stop: 10/13/19 15:17 Ondansetron HCl (Zofran Odt) 4 mg PO Q4H PRN PRN Reason: nausea, able to take PO Phenylephrine HCl (Phenylephrine In Ns 100 Mcg/Ml) Confirm Administered Dose 1 mg .ROUTE .STK-MED ONE Stop: 10/13/19 15:56 Prednisone (Prednisone) 40 mg PO DAILY [facility] Last Admin: 10/14/19 10:21 Dose: Not Given Prednisone (Prednisone) 40 mg PO DAILY [facility] Last Admin: 10/15/19 08:56 Dose: 40 mg Propofol (Diprivan 20 Ml) Confirm Administered Dose 200 mg .ROUTE .STK-MED ONE Stop: 10/13/19 15:16 Ropinirole HCl (Requip) 2 mg PO DAILY [facility] Last Admin: 10/15/19 08:55 Dose: 2 mg Sodium Chloride (Saline Flush) 10 ml FLUSH ASDIRECTED PRN PRN Reason: Keep Vein Open Sodium Chloride (Saline Flush) 2.5 ml FLUSH ASDIRECTED PRN PRN Reason: Keep Vein Open Succinylcholine Chloride (Succinylcholine Chloride) Confirm Administered Dose 200 mg .ROUTE .STK-MED ONE Stop: 10/13/19 15:17 Tetanus/Diphtheria Toxoids (Tenivac) 0.5 ml IM .ONCE ONE Stop: 10/13/19 13:15 Last Admin: 10/13/19 14:48 Dose: 0.5 ml Tramadol HCl (Ultram) 50 mg PO QID PRN PRN Reason: Pain Last Admin: 10/15/19 00:45 Dose: 50 mg
== END 2019-10-15 14:00 | disposition home or self-care (01) ==
LOC: MW.ED 13:03 → MW.SDS 15:27 → MW.MS 16:20
PROVIDERS: ADMIT Student in an Organized Health Care Education/Training Program; ATTEND Student in an Organized Health Care Education/Training Program
DX: S73.015A Posterior dislocation of left hip, initial encounter (principal); S01.01XA Laceration without foreign body of scalp, initial encounter; J96.01 Acute respiratory failure with hypoxia; I10 Essential (primary) hypertension; J43.9 Emphysema, unspecified; M19.90 Unspecified osteoarthritis, unspecified site; W00.0XXA Fall on same level due to ice and snow, initial encounter; Y92.008 Other place in unspecified non-institutional (private) residence as the place of occurrence of the external cause; Z88.5 Allergy status to narcotic agent; Z87.891 Personal history of nicotine dependence
CPT/HCPCS: 27252; 36415; 70450; 71045; 72170; 73502; 80048; 80053; 81003; 82550; 83735; 84100; 84443; 84484; 85025; 85610; 90714; 93005; 94640; 97161; 97530; A9270; J0330; J1644; J2001; J2250; J2370; J2405; J2704; J3010; J7030; J7040; 01214; J7620-GY

== ENCOUNTER 2020-06-14 00:15 | Emergency (ER) | payer MEDICARE, OTHER ==
[2020-06-14] MEDS ORDERED: Sodium Chloride 0.9% 10 ML Syringe FLUSH PRN (00:37)
[2020-06-14] MEDS ORDERED: Sodium Chloride 0.9% 2.5 ML Syringe FLUSH PRN (00:37)
--- NOTE | 2020-06-14 00:47 | EDM.PDOC ---
ED HPI GENERAL MEDICAL PROBLEM - General Chief Complaint: Abdominal Pain Stated Complaint: LT SIDE PAIN Time Seen by Provider: 06/14/20 00:26 - History of Present Illness INITIAL COMMENTS - FREE TEXT/NARRATIVE: History of present illness: [] Abdominal pain off and on for several days. Tonight it became intractable and severe in the left upper quadrant. Not associated with nausea vomiting. She has no constipation. She has no dysuria or frequency. Patient had a COPD exacerbation after hip reduction in the winter last year and that chart was reviewed. Nothing makes her pain better or worse and is moderately severe and c onstant. Review of systems: As per history of present illness and below otherwise all systems reviewed and negative. Past medical history: As per history of present illness and as reviewed below otherwise noncontributory. Surgical history: As per history of present illness and as reviewed below otherwise noncontributory. Social history: No reported history of drug or alcohol abuse. Family history: As per history of present illness and as reviewed below otherwise noncontributory. Physical exam: Constitutional - well developed, well-nourished and in no acute distress HEENT - normocephalic, no evidence of trauma - external nose and mouth normal - no mass in neck and no JVD - mucosae moist EYES - full EOM, PERRL, no icterus - no evidence of inflammation, injection, or drainage Respiratory - no respiratory distress, equal bilateral expansion, lungs clear to auscultation and no abnormal lung sounds Cardiovascular - Regular Rhythm with S1 and S2 appreciated and no murmur, gallop or rub. Peripheral pulses symmetrically normal in all four extremities GI - abdomen soft without distension or organomegaly - normal bowel sounds -left hypogastrium-no rebound Musculoskeletal no gross deformity of long bones or joints - no tenderness, swelling or edema Neurologic - Alert and oriented times four - CN II-XII grossly intact - motor sensory and coordination symmetrically normal Psychiatric - appropriate mood and affect with normal thought content Hematologic - No petechiae or purpura - mucosa appropriate color and sclera not pale - normal nail bed color and refill Integument - no rash or evidence of trauma - normal turgor Diagnostics: [] Therapeutics: [] Impression: [] Plan: [] Definitive disposition and diagnosis as appropriate pending reevaluation and review of above. abdomen Pain Score (Numeric/FACES): 8 - Related Data Allergies Allergy/AdvReac Type Severity Reaction Status Date / Time morphine Allergy Vomiting Verified 06/14/20 00:34 Home Meds: Home Meds Metoprolol Succinate 50 mg PO DAILY 10/13/19 [History] lisinopriL [Lisinopril] 20 mg PO DAILY 10/13/19 [History] predniSONE [Prednisone] 40 mg PO DAILY 4 Days #8 tablet 10/13/19 [Rx] rOPINIRole [Requip] 2 mg PO DAILY 10/13/19 [History] traMADol [Ultram] 50 mg PO Q6H PRN #20 tab 10/13/19 [Rx] Azithromycin 250 mg PO DAILY 3 Days #3 tablet 10/15/19 [Rx] traMADol [Ultram] 50 mg PO QID PRN 4 Days #16 tablet 10/15/19 [Rx] Past Medical History - Past Health History Medical/Surgical History: Denies Medical/Surgical History HEENT 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: Impaired Vision, Other (See Below) Other HEENT History: wears glasses Cardiovascular 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: Hypertension, Other (See Below) Other Cardiovascular History: elevated heart rate Respiratory 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: Bronchitis, Recurrent, COPD, SOB Gastrointestinal 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: None Genitourinary 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: None 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: Musculoskeletal 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: Osteoarthritis Neurological 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: None Endocrine/Metabolic 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: None Oncologic (Cancer) 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: None Dermatologic 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: None - Infectious Disease History Infectious Disease 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: Chicken Pox, Measles - Past Surgical History HEENT Surgical 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: None Cardiovascular Surgical 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: None Respiratory Surgical 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: None GI Surgical 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: Cholecystectomy, Colonoscopy, Polypectomy Female Surgical 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: Hysterectomy, Salpingo-Oophorectomy Endocrine Surgical 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: None Musculoskeletal Surgical 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: Hip Replacement, Knee Replacement Other Musculoskeletal Surgeries/Procedures:: bilateral hip replacement, left knee replacement Social & Family History - Family History Family Medical History: Noncontributory - Tobacco Use Smoking Status *Q: Current Every Day Smoker Years of Tobacco use: 30 Packs/Tins Daily: 0.5 - Caffeine Use Caffeine Use: Reports: Coffee Caffeine Use Comment: 3-4 cups a day - Recreational Drug Use Recreational Drug Use: No ED ROS GENERAL - Review of Systems Review Of Systems: Comprehensive ROS is negative, except as noted in HPI. ED EXAM, GENERAL - Physical Exam Exam: See Below Free Text/Narrative:: My physical exam is in the HPI Course - Vital Signs Text/Narrative:: CT of the abdomen shows a 1 to 2 mm distal left ureteral stone with moderate hydronephrosis. Creatinine is 1.2 which is elevated for her.. She will be able to pass the stone but she will be referred to urology in case she cannot. Last Recorded V/S: Last Vital Signs Temp 96.5 F L 06/14/20 00:16 Pulse 78 06/14/20 02:00 Resp 20 06/14/20 02:00 BP 171/91 H 06/14/20 02:00 Pulse Ox 93 L 06/14/20 02:00 - Orders/Labs/Meds Orders: Active Orders 24 hr Category Date Time Status Sodium Chloride 0.9% [Normal Saline] 1,000 ml Med 06/14/20 01:45 Active IV ASDIRECTED Sodium Chloride 0.9% [Saline Flush] Med 06/14/20 00:37 Active 10 ml FLUSH ASDIRECTED PRN Sodium Chloride 0.9% [Saline Flush] Med 06/14/20 00:37 Active 2.5 ml FLUSH ASDIRECTED PRN Saline Lock Insert [OM.PC] Stat Oth 06/14/20 00:37 Ordered Medication Orders Sodium Chloride (Normal Saline) 1,000 mls @ 999 mls/hr IV ASDIRECTED MARTHA Last Admin: 06/14/20 01:44 Dose: 999 mls/hr Documented by: HERRERA Sodium Chloride (Saline Flush) 10 ml FLUSH ASDIRECTED PRN PRN Reason: Keep Vein Open Sodium Chloride (Saline Flush) 2.5 ml FLUSH ASDIRECTED PRN PRN Reason: Keep Vein Open Labs: Laboratory Tests 06/14/20 06/14/20 06/14/20 Range/Units 00:25 00:43 00:43 WBC 6.88 (4.0-11.0) K/uL RBC 4.81 (4.30-5.90) M/uL Hgb 14.3 (12.0-16.0) g/dL Hct 43.5 (36.0-46.0) % MCV 90.4 (80.0-98.0) fL MCH 29.7 (27.0-32.0) pg MCHC 32.9 (31.0-37.0) g/dL RDW Std Deviation 44.5 (28.0-62.0) fl RDW Coeff of Dorinda 14 (11.0-15.0) % Plt Count 91 L (150-400) K/uL MPV 11.90 (7.40-12.00) fL Neut % (Auto) 72.7 (48.0-80.0) % Lymph % (Auto) 18.0 (16.0-40.0) % Cross % (Auto) 7.7 (0.0-15.0) % Eos % (Auto) 1.5 (0.0-7.0) % Baso % (Auto) 0.1 (0.0-1.5) % Neut # (Auto) 5.0 (1.4-5.7) K/uL Lymph # (Auto) 1.2 (0.6-2.4) K/uL Cross # (Auto) 0.5 (0.0-0.8) K/uL Eos # (Auto) 0.1 (0.0-0.7) K/uL Baso # (Auto) 0.0 (0.0-0.1) K/uL Lactate 0.5 (0.20-2.00) mmol/L Sodium (136-145) mmol/L Potassium (3.5-5.1) mmol/L Chloride (98-107) mmol/L Carbon Dioxide (21.0-32.0) mmol/L BUN (7.0-18.0) mg/dL Creatinine (0.6-1.0) mg/dL Est Cr Clr Drug Dosing mL/min Estimated GFR (MDRD) ml/min Glucose (74-106) mg/dL Calcium (8.5-10.1) mg/dL Total Bilirubin (0.2-1.0) mg/dL AST (15-37) IU/L ALT (14-63) IU/L Alkaline Phosphatase (46-116) U/L Total Protein (6.4-8.2) g/dL Albumin (3.4-5.0) g/dL Globulin (2.6-4.0) g/dL Albumin/Globulin Ratio (0.9-1.6) Lipase (73-393) U/L Urine Color YELLOW Urine Appearance SLT CLOUDY Urine pH 6.0 (5.0-8.0) Ur Specific [place] 1.010 (1.001-1.035) Urine Protein NEGATIVE (NEGATIVE) mg/dL Urine Glucose (UA) NEGATIVE (NEGATIVE) mg/dL Urine Ketones NEGATIVE (NEGATIVE) mg/dL Urine Occult Blood SMALL H (NEGATIVE) Urine Nitrite NEGATIVE (NEGATIVE) Urine Bilirubin NEGATIVE (NEGATIVE) Urine Urobilinogen 0.2 (<2.0) EU/dL Ur Leukocyte Esterase NEGATIVE (NEGATIVE) Urine RBC 1-4 (0-2/HPF) Urine WBC 0-2 (0-5/HPF) Ur Epithelial Cells RARE (NONE-FEW) Urine Bacteria RARE (NEGATIVE) 06/14/20 Range/Units 00:43 WBC (4.0-11.0) K/uL RBC (4.30-5.90) M/uL Hgb (12.0-16.0) g/dL Hct (36.0-46.0) % MCV (80.0-98.0) fL MCH (27.0-32.0) pg MCHC (31.0-37.0) g/dL RDW Std Deviation (28.0-62.0) fl RDW Coeff of Dorinda (11.0-15.0) % Plt Count (150-400) K/uL MPV (7.40-12.00) fL Neut % (Auto) (48.0-80.0) % Lymph % (Auto) (16.0-40.0) % Cross % (Auto) (0.0-15.0) % Eos % (Auto) (0.0-7.0) % Baso % (Auto) (0.0-1.5) % Neut # (Auto) (1.4-5.7) K/uL Lymph # (Auto) (0.6-2.4) K/uL Cross # (Auto) (0.0-0.8) K/uL Eos # (Auto) (0.0-0.7) K/uL Baso # (Auto) (0.0-0.1) K/uL Lactate (0.20-2.00) mmol/L Sodium 142 (136-145) mmol/L Potassium 3.8 (3.5-5.1) mmol/L Chloride 105 (98-107) mmol/L Carbon Dioxide 29.1 (21.0-32.0) mmol/L BUN 17 (7.0-18.0) mg/dL Creatinine 1.2 H (0.6-1.0) mg/dL Est Cr Clr Drug Dosing 32.09 mL/min Estimated GFR (MDRD) 42.7 ml/min Glucose 106 (74-106) mg/dL Calcium 8.5 (8.5-10.1) mg/dL Total Bilirubin 0.8 (0.2-1.0) mg/dL AST 20 (15-37) IU/L ALT 17 (14-63) IU/L Alkaline Phosphatase 111 (46-116) U/L Total Protein 7.2 (6.4-8.2) g/dL Albumin 3.9 (3.4-5.0) g/dL Globulin 3.3 (2.6-4.0) g/dL Albumin/Globulin Ratio 1.2 (0.9-1.6) Lipase 187 (73-393) U/L Urine Color Urine Appearance Urine pH (5.0-8.0) Ur Specific [place] (1.001-1.035) Urine Protein (NEGATIVE) mg/dL Urine Glucose (UA) (NEGATIVE) mg/dL Urine Ketones (NEGATIVE) mg/dL Urine Occult Blood (NEGATIVE) Urine Nitrite (NEGATIVE) Urine Bilirubin (NEGATIVE) Urine Urobilinogen (<2.0) EU/dL Ur Leukocyte Esterase (NEGATIVE) Urine RBC (0-2/HPF) Urine WBC (0-5/HPF) Ur Epithelial Cells (NONE-FEW) Urine Bacteria (NEGATIVE) Meds: Medications Generic Name Dose Route Start Last Admin Trade Name Freq PRN Reason Stop Dose Admin Sodium Chloride 1,000 mls @ 999 mls/hr 06/14/20 01:45 06/14/20 01:44 Normal Saline IV 999 mls/hr ASDIRECTED MARTHA Administration Sodium Chloride 10 ml 06/14/20 00:37 Saline Flush FLUSH ASDIRECTED PRN Keep Vein Open Sodium Chloride 2.5 ml 06/14/20 00:37 Saline Flush FLUSH ASDIRECTED PRN Keep Vein Open Discontinued Medications Generic Name Dose Route Start Last Admin Trade Name Freq PRN Reason Stop Dose Admin Fentanyl 50 mcg 06/14/20 02:14 06/14/20 02:40 Fentanyl IVPUSH 06/14/20 02:15 Not Given ONETIME ONE Departure - Departure Time of Disposition: 03:29 Disposition: Home, Self-Care 01 Condition: Good Clinical Impression: Ureteral stone, Ureteric colic - Discharge Information Instructions: Kidney Stones, [id number] Referrals: Charlie Sepulveda MD [Primary Care Provider] - Forms: ED Department Discharge Additional Instructions: The following information is given to patients seen in the emergency department who are being discharged to home. This information is to outline your options for follow-up care. We provide all patients seen in our emergency department with a follow-up referral. The need for follow-up, as well as the timing and circumstances, are variable depending upon the specifics of your emergency department visit. If you don't have a primary care physician on staff, we will provide you with a referral. We always advise you to contact your personal physician following an emergency department visit to inform them of the circumstance of the visit and for follow-up with them and/or the need for any referrals to a consulting specialist. The emergency department will also refer you to a specialist when appropriate. This referral assures that you have the opportunity for follow-up care with a specialist. All of these measure are taken in an effort to provide you with optimal care, which includes your follow-up. Under all circumstances we always encourage you to contact your private physician who remains a resource for coordinating your care. When calling for follow-up care, please make the office aware that this follow-up is from your recent emergency room visit. If for any reason you are refused follow-up, please contact the [facility] Emergency Department at and asked to speak to the emergency department charge nurse. [facility] - Urology [address] [place] [id number] Sepsis Event Note (ED) - Evaluation Sepsis Screening Result: No Definite Risk - Focused Exam Vital Signs: Vital Signs Temp Pulse Resp BP Pulse Ox 06/14/20 02:00 78 20 171/91 H 93 L 06/14/20 00:16 96.5 F L 82 21 H 132/75 95 - My Orders Last 24 Hours: My Active Orders 06/14/20 00:37 Sodium Chloride 0.9% [Saline Flush] 10 ml FLUSH ASDIRECTED PRN Sodium Chloride 0.9% [Saline Flush] 2.5 ml FLUSH ASDIRECTED PRN Saline Lock Insert [OM.PC] Stat 06/14/20 01:45 Sodium Chloride 0.9% [Normal Saline] 1,000 ml IV ASDIRECTED - Assessment/Plan Last 24 Hours: My Active Orders 06/14/20 00:37 Sodium Chloride 0.9% [Saline Flush] 10 ml FLUSH ASDIRECTED PRN Sodium Chloride 0.9% [Saline Flush] 2.5 ml FLUSH ASDIRECTED PRN Saline Lock Insert [OM.PC] Stat 06/14/20 01:45 Sodium Chloride 0.9% [Normal Saline] 1,000 ml IV ASDIRECTED
[2020-06-14 01:12] LABS: CARBON DIOXIDE,CO2 29.1 mmol/L (21.0-32.0); POTASSIUM,K 3.8 mmol/L (3.5-5.1)
[2020-06-14] MEDS ORDERED: Sodium Chloride 0.9% 1,000 ML IV SCH (01:45)
[2020-06-14] MEDS ORDERED: fentaNYL 50 MCG/ML SDV IVPUSH ONE (02:14)
--- NOTE | 2020-06-14 03:13 | CT ---
INDICATION: Abdominal pain TECHNIQUE: CT abdomen and pelvis acquired without IV contrast. COMPARISON: None FINDINGS: Lower chest: Bibasilar atelectasis. Cardiomegaly. Liver: Unremarkable. Spleen: Unremarkable. Pancreas: Unremarkable. Gallbladder and bile ducts: Unremarkable. Kidneys: 1-2 millimeter calculi distal left ureter with moderate left hydronephrosis. Adrenal glands: Unremarkable. GI tract: Diffuse colonic fecal retention. Sigmoid diverticulosis. Vascular structures: Unremarkable. Lymph nodes: Unremarkable. Miscellaneous: Unremarkable. No free air or significant free fluid. Pelvic Organs: Unremarkable. Bones: Bilateral hip arthroplasties. Posterior spinal fixation hardware L4-L5. IMPRESSION: No findings to explain the patient`s symptoms other than diffuse colonic fecal retention. 1-2 millimeter calculi distal left ureter with moderate left hydronephrosis. Dictated by Jakob Davis MD @ 06/14/2020 3:11:41 AM Please note that all CT scans at this facility use dose modulation, iterative reconstruction, and/or weight-based dosing when appropriate to reduce radiation dose to as low as reasonably achievable. Dictated by: Jakob Davis MD @ 06/14/2020 03:12:28 (Electronically Signed)
== END 2020-06-14 03:38 | disposition home or self-care (01) ==
LOC: MW.ED 00:15
DX: N13.2 Hydronephrosis with renal and ureteral calculous obstruction (principal); I10 Essential (primary) hypertension; J44.9 Chronic obstructive pulmonary disease, unspecified; F17.210 Nicotine dependence, cigarettes, uncomplicated; Z79.899 Other long term (current) drug therapy; Z88.5 Allergy status to narcotic agent
CPT/HCPCS: 36415; 74176; 80053; 81001; 83605; 83690; 85025; 99284; J7030; 99283

== ENCOUNTER 2020-09-12 21:41 | Emergency (ER) | payer MEDICARE, OTHER ==
[2020-09-12] MEDS ORDERED: Sodium Chloride 0.9% 2.5 ML Syringe FLUSH PRN (21:56)
[2020-09-12] MEDS ORDERED: Sodium Chloride 0.9% 10 ML Syringe FLUSH PRN (21:56)
[2020-09-12] MEDS ORDERED: Acetaminophen 325 MG Tab PO ONE (21:57)
[2020-09-12] MEDS ORDERED: Sodium Chloride 0.9% 500 ML IV SCH (22:00)
--- NOTE | 2020-09-12 22:00 | EDM.PDOC ---
ED HPI GENERAL MEDICAL PROBLEM - General Chief Complaint: General Stated Complaint: FALL DOWN Time Seen by Provider: 09/12/20 21:51 - History of Present Illness INITIAL COMMENTS - FREE TEXT/NARRATIVE: HISTORY AND PHYSICAL: History of present illness: This is an 84-year-old female who presents ER today secondary to generalized weakness and a fall at approximately 2 PM. Patient reports after the fall she had pain to her left hip however she reports the pain right now is significantly improved and she has minimal discomfort. Patient reports that she has been able to ambulate and weight-bear without any difficulty. Patient has any recent fevers, shakes, chills, nausea, vomiting, diarrhea, dysuria, frequency, urgency, chest pain, shortness of breath, abdominal pain. Patient reports slightly decreased p.o. intake today but is currently hungry. Patient reports normal urinary output. Patient denies any anticoagulation therapy or head trauma. Patient denies any loss of consciousness. Patient reports that her fall today was likely secondary to losing her footing but did not feel dizzy or presyncopal prior to the fall. Review of systems: As per history of present illness and below otherwise all systems reviewed and negative. Past medical history: As per history of present illness and as reviewed below otherwise noncontributory. Surgical history: As per history of present illness and as reviewed below otherwise noncontributory. Social history: No reported history of drug or alcohol abuse. Family history: As per history of present illness and as reviewed below otherwise noncontributory. Physical exam: Constitutional: Patient is oriented to person, place, and time. Appears well- developed and well-nourished. No distress. HEENT: Moist mucous membranes Head: Normocephalic and atraumatic Eyes: Right eye exhibits no discharge. Left eye exhibits no discharge. No scleral icterus Neck: Normal range of motion. No tracheal deviation present. Cardiovascular: Normal rate and regular rhythm. Pulmonary: Effort normal, no respiratory distress. Abdominal: No distention Musculoskeletal: Normal range of motion Neurologic: Alert and oriented to person, place and time. Skin: [place], warm and dry. Psychiatric: Normal mood and affect. Behavior is normal. Judgment and thought content normal. Nursing note and vital signs have been reviewed Patient has no C-spine T-spine or L-spine tenderness to palpation. Patient has no left upper or right upper quadrant tenderness to palpation. Patient has no crepitus to palpation to the anterior chest wall. Patient is neurologically intact. Patient does not present with any signs or or symptoms that would be consistent with acute intracranial, intra-abdominal, intrathoracic, or long bone injury. All long bones have been palpated and range of motion been performed and there is no evidence of any acute pathology. Patient with normal weightbearing and minimal tenderness to palpation to her left hip. Diagnostics: CBC, CMP, urinalysis Therapeutics: Tylenol 650 mg p.o. NSS x500 cc Assessment and plan: This is a 84-year-old female who presents ER today secondary to generalized weakness and fall of 2 PM today, 8 hours prior to arrival. Patient will have labs drawn secondary to her generalized weakness including a CBC, CMP and urinalysis. Patient will have x-ray of her left hip. Patient be given 1 L of normal saline and 650 mg of Tylenol to assist with her pain. 11:15 PM: Patient's x-ray is negative for acute fracture or injury to her left hip. Patient has a normal CBC CMP and urinalysis. Patient is clinically hemodynamically stable at this time. Patient will be discharged home with instructions to follow-up with her PCP as needed. Reassessment at the time of disposition demonstrates that the patient is in no acute distress. The patient has remained stable throughout the entire ED visit and is without objective evidence for acute process requiring urgent intervention or hospitalization. The patient is stable for discharge, counseling is provided as documented above, discussed symptomatic treatment and specific conditions for return. I have spoken with the patient/caregiver and discussed todays findings, in addition to providing specific details for the plan of care. Questions are answered and there is agreement with the plan. Definitive disposition and diagnosis as appropriate pending reevaluation and review of above. - Related Data Allergies Allergy/AdvReac Type Severity Reaction Status Date / Time morphine Allergy Vomiting Verified 09/12/20 22:01 Home Meds: Home Meds Metoprolol Succinate 50 mg PO DAILY 10/13/19 [History] lisinopriL [Lisinopril] 20 mg PO DAILY 10/13/19 [History] predniSONE [Prednisone] 40 mg PO DAILY 4 Days #8 tablet 10/13/19 [Rx] rOPINIRole [Requip] 2 mg PO DAILY 10/13/19 [History] traMADol [Ultram] 50 mg PO Q6H PRN #20 tab 10/13/19 [Rx] Azithromycin 250 mg PO DAILY 3 Days #3 tablet 10/15/19 [Rx] traMADol [Ultram] 50 mg PO QID PRN 4 Days #16 tablet 10/15/19 [Rx] Past Medical History - Past Health History Medical/Surgical History: Denies Medical/Surgical History HEENT 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: Impaired Vision, Other (See Below) Other HEENT History: wears glasses Cardiovascular 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: Hypertension, Other (See Below) Other Cardiovascular History: elevated heart rate Respiratory 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: Bronchitis, Recurrent, COPD, SOB Gastrointestinal 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: None Genitourinary 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: None [employer] 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: Musculoskeletal 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: Osteoarthritis Neurological 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: None Endocrine/Metabolic 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: None Oncologic (Cancer) 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: None Dermatologic 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: None - Infectious Disease History Infectious Disease 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: Chicken Pox, Measles - Past Surgical History HEENT Surgical 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: None Cardiovascular Surgical 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: None Respiratory Surgical 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: None GI Surgical 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: Cholecystectomy, Colonoscopy, Polypectomy Female Surgical 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: Hysterectomy, Salpingo-Oophorectomy Endocrine Surgical 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: None Musculoskeletal Surgical 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: Hip Replacement, Knee Replacement Other Musculoskeletal Surgeries/Procedures:: bilateral hip replacement, left knee replacement Social & Family History - Family History Family Medical History: Noncontributory - Caffeine Use Caffeine Use: Reports: Coffee Caffeine Use Comment: 3-4 cups a day ED ROS GENERAL - Review of Systems Review Of Systems: See Below ED EXAM, GENERAL - Physical Exam Exam: See Below Course - Vital Signs Last Recorded V/S: Last Vital Signs Temp 97.7 F 09/12/20 23:54 Pulse 77 09/12/20 23:54 Resp 18 09/12/20 23:54 BP 93/63 09/12/20 23:54 Pulse Ox 94 L 09/12/20 23:54 - Orders/Labs/Meds Orders: Active Orders 24 hr Category Date Time Status CORONAVIRUS COVID-19 PCR PHL Stat Lab 09/12/20 23:35 Received Sodium Chloride 0.9% [Normal Saline] 500 ml Med 09/12/20 22:00 Active IV .BOLUS Sodium Chloride 0.9% [Saline Flush] Med 09/12/20 21:56 Active 10 ml FLUSH ASDIRECTED PRN Sodium Chloride 0.9% [Saline Flush] Med 09/12/20 21:56 Active 2.5 ml FLUSH ASDIRECTED PRN Saline Lock Insert [OM.PC] Stat Oth 09/12/20 21:57 Ordered Medication Orders Sodium Chloride (Normal Saline) 500 mls @ 999 mls/hr IV .BOLUS MARTHA Last Admin: 09/12/20 22:17 Dose: 999 mls/hr Documented by: MIKHAIL Sodium Chloride (Saline Flush) 10 ml FLUSH ASDIRECTED PRN PRN Reason: Keep Vein Open Sodium Chloride (Saline Flush) 2.5 ml FLUSH ASDIRECTED PRN PRN Reason: Keep Vein Open Labs: Laboratory Tests 09/12/20 09/12/20 09/12/20 Range/Units 22:00 22:00 23:00 WBC 11.37 H (4.0-11.0) K/uL RBC 5.02 (4.30-5.90) M/uL Hgb 15.1 (12.0-16.0) g/dL Hct 45.5 (36.0-46.0) % MCV 90.6 (80.0-98.0) fL MCH 30.1 (27.0-32.0) pg MCHC 33.2 (31.0-37.0) g/dL RDW Std Deviation 47.0 (28.0-62.0) fl RDW Coeff of Dorinda 14 (11.0-15.0) % Plt Count 92 L (150-400) K/uL MPV 12.10 H (7.40-12.00) fL Neut % (Auto) 90.1 H (48.0-80.0) % Lymph % (Auto) 2.3 L (16.0-40.0) % [place] % (Auto) 7.5 (0.0-15.0) % Eos % (Auto) 0.1 (0.0-7.0) % Baso % (Auto) 0.0 (0.0-1.5) % Neut # (Auto) 10.3 H (1.4-5.7) K/uL Lymph # (Auto) 0.3 L (0.6-2.4) K/uL [place] # (Auto) 0.9 H (0.0-0.8) K/uL Eos # (Auto) 0.0 (0.0-0.7) K/uL Baso # (Auto) 0.0 (0.0-0.1) K/uL Nucleated RBC % 0.0 /100WBC Nucleated RBCs # 0 K/uL Sodium 137 (136-145) mmol/L Potassium 3.5 (3.5-5.1) mmol/L Chloride 99 (98-107) mmol/L Carbon Dioxide 24.5 (21.0-32.0) mmol/L BUN 16 (7.0-18.0) mg/dL Creatinine 0.9 (0.6-1.0) mg/dL Est Cr Clr Drug Dosing 44.44 mL/min Estimated GFR (MDRD) 59.5 ml/min Glucose 93 (74-106) mg/dL Calcium 9.0 (8.5-10.1) mg/dL Total Bilirubin 1.3 H (0.2-1.0) mg/dL AST 48 H (15-37) IU/L ALT 20 (14-63) IU/L Alkaline Phosphatase 105 (46-116) U/L Total Protein 6.9 (6.4-8.2) g/dL Albumin 3.5 (3.4-5.0) g/dL Globulin 3.4 (2.6-4.0) g/dL Albumin/Globulin Ratio 1.0 (0.9-1.6) Urine Color YELLOW Urine Appearance SLT CLOUDY Urine pH 7.0 (5.0-8.0) Ur Specific [place] 1.020 (1.001-1.035) Urine Protein 30 H (NEGATIVE) mg/dL Urine Glucose (UA) NEGATIVE (NEGATIVE) mg/dL Urine Ketones 15 H (NEGATIVE) mg/dL Urine Occult Blood MODERATE H (NEGATIVE) Urine Nitrite NEGATIVE (NEGATIVE) Urine Bilirubin NEGATIVE (NEGATIVE) Urine Urobilinogen 1.0 (<2.0) EU/dL Ur Leukocyte Esterase NEGATIVE (NEGATIVE) Urine RBC 0-2 (0-2/HPF) Urine WBC 0-3 (0-5/HPF) Ur Epithelial Cells FEW (NONE-FEW) Urine Bacteria FEW (NEGATIVE) Urine Mucus LIGHT (NONE-MOD) SARS CoV-2 RNA Rapid NURYS (NEGATIVE) 09/12/20 Range/Units 23:35 WBC (4.0-11.0) K/uL RBC (4.30-5.90) M/uL Hgb (12.0-16.0) g/dL Hct (36.0-46.0) % MCV (80.0-98.0) fL MCH (27.0-32.0) pg MCHC (31.0-37.0) g/dL RDW Std Deviation (28.0-62.0) fl RDW Coeff of Dorinda (11.0-15.0) % Plt Count (150-400) K/uL MPV (7.40-12.00) fL Neut % (Auto) (48.0-80.0) % Lymph % (Auto) (16.0-40.0) % [place] % (Auto) (0.0-15.0) % Eos % (Auto) (0.0-7.0) % Baso % (Auto) (0.0-1.5) % Neut # (Auto) (1.4-5.7) K/uL Lymph # (Auto) (0.6-2.4) K/uL [place] # (Auto) (0.0-0.8) K/uL Eos # (Auto) (0.0-0.7) K/uL Baso # (Auto) (0.0-0.1) K/uL Nucleated RBC % /100WBC Nucleated RBCs # K/uL Sodium (136-145) mmol/L Potassium (3.5-5.1) mmol/L Chloride (98-107) mmol/L Carbon Dioxide (21.0-32.0) mmol/L BUN (7.0-18.0) mg/dL Creatinine (0.6-1.0) mg/dL Est Cr Clr Drug Dosing mL/min Estimated GFR (MDRD) ml/min Glucose (74-106) mg/dL Calcium (8.5-10.1) mg/dL Total Bilirubin (0.2-1.0) mg/dL AST (15-37) IU/L ALT (14-63) IU/L Alkaline Phosphatase (46-116) U/L Total Protein (6.4-8.2) g/dL Albumin (3.4-5.0) g/dL Globulin (2.6-4.0) g/dL Albumin/Globulin Ratio (0.9-1.6) Urine Color Urine Appearance Urine pH (5.0-8.0) Ur Specific [place] (1.001-1.035) Urine Protein (NEGATIVE) mg/dL Urine Glucose (UA) (NEGATIVE) mg/dL Urine Ketones (NEGATIVE) mg/dL Urine Occult Blood (NEGATIVE) Urine Nitrite (NEGATIVE) Urine Bilirubin (NEGATIVE) Urine Urobilinogen (<2.0) EU/dL Ur Leukocyte Esterase (NEGATIVE) Urine RBC (0-2/HPF) Urine WBC (0-5/HPF) Ur Epithelial Cells (NONE-FEW) Urine Bacteria (NEGATIVE) Urine Mucus (NONE-MOD) SARS CoV-2 RNA Rapid NURYS POSITIVE H (NEGATIVE) Meds: Medications Generic Name Dose Route Start Last Admin Trade Name Freq PRN Reason Stop Dose Admin Sodium Chloride 500 mls @ 999 mls/hr 09/12/20 22:00 09/12/20 22:17 Normal Saline IV 999 mls/hr .BOLUS MARTHA Administration Sodium Chloride 10 ml 09/12/20 21:56 Saline Flush FLUSH ASDIRECTED PRN Keep Vein Open Sodium Chloride 2.5 ml 09/12/20 21:56 Saline Flush FLUSH ASDIRECTED PRN Keep Vein Open Discontinued Medications Generic Name Dose Route Start Last Admin Trade Name Freq PRN Reason Stop Dose Admin Acetaminophen 650 mg 09/12/20 21:57 09/12/20 22:17 Tylenol PO 09/12/20 21:58 650 mg NOW ONE Administration Departure - Departure Time of Disposition: 23:16 Disposition: Home, Self-Care 01 Condition: Good Clinical Impression: Fall in elderly patient, Generalized weakness, Contusion of left hip, COVID-19 virus detected - Discharge Information Instructions: Fall Prevention in the Home, Adult, [id number], Weakness Referrals: Charlie Sepulveda MD [Primary Care Provider] - Forms: ED Department Discharge Additional Instructions: You were seen and evaluated in the ER today secondary to your weakness and fall. Your work-up in the ER has been unremarkable with no evidence of abnormal labs, infection or fracture of your hip. Please be careful when you are walking. Please increase your fluid intake over the next 1 to 2 days. You may take Tylenol as needed for pain and discomfort. Please see your family doctor in 1 to 2 days to be reevaluated. 1. Your COVID-19 screening is positive. That means you do have the coronavirus and you are considered contagious. Your vital signs and oxygen saturation are well enough that you were able to monitor your symptoms at home. Continue to monitor for trouble breathing, new confusion or inability to arouse, bluish lips or face or any of the other symptoms we discussed -if this occurs please return to the emergency room. 2. Please self quarantine over the next 10 days. Inform any persons that you have been in contact with since you started becoming symptomatic that you have tested positive; they should be made aware and take the appropriate steps as needed. 3. You can take NyQuil during the evening to help get a restful night sleep. May alternate Tylenol and ibuprofen as needed for pain and fever management. 4. The [facility] will be calling you and following up with you. The [place] COVID 19 Hotline phone number , They are open Tuesday - Tuesday 7am - 7pm. Follow up with your primary care provider for re-evaluation and re-testing after the 10 day quarantine and discuss when you should be seen. The following information is given to patients seen in the emergency department who are being discharged to home. This information is to outline your options for follow-up care. We provide all patients seen in our emergency department with a follow-up referral. The need for follow-up, as well as the timing and circumstances, are variable depending upon the specifics of your emergency department visit. If you don't have a primary care physician on staff, we will provide you with a referral. We always advise you to contact your personal physician following an emergency department visit to inform them of the circumstance of the visit and for follow-up with them and/or the need for any referrals to a consulting specialist. The emergency department will also refer you to a specialist when appropriate. This referral assures that you have the opportunity for follow-up care with a specialist. All of these measure are taken in an effort to provide you with optimal care, which includes your follow-up. Under all circumstances we always encourage you to contact your private physician who remains a resource for coordinating your care. When calling for follow-up care, please make the office aware that this follow-up is from your recent emergency room visit. If for any reason you are refused follow-up, please contact the [facility] Emergency Department at and asked to speak to the emergency department charge nurse. Sepsis Event Note (ED) - Focused Exam Vital Signs: Vital Signs Temp Pulse Resp BP Pulse Ox 09/12/20 23:54 97.7 F 77 18 93/63 94 L 09/12/20 22:05 96 09/12/20 21:55 97.8 F 104 H 18 128/69 89 L - My Orders Last 24 Hours: My Active Orders 09/12/20 21:56 Sodium Chloride 0.9% [Saline Flush] 10 ml FLUSH ASDIRECTED PRN Sodium Chloride 0.9% [Saline Flush] 2.5 ml FLUSH ASDIRECTED PRN 09/12/20 21:57 Saline Lock Insert [OM.PC] Stat 09/12/20 22:00 Sodium Chloride 0.9% [Normal Saline] 500 ml IV .BOLUS 09/12/20 23:35 CORONAVIRUS COVID-19 PCR PHL Stat - Assessment/Plan Last 24 Hours: My Active Orders 09/12/20 21:56 Sodium Chloride 0.9% [Saline Flush] 10 ml FLUSH ASDIRECTED PRN Sodium Chloride 0.9% [Saline Flush] 2.5 ml FLUSH ASDIRECTED PRN 09/12/20 21:57 Saline Lock Insert [OM.PC] Stat 09/12/20 22:00 Sodium Chloride 0.9% [Normal Saline] 500 ml IV .BOLUS 09/12/20 23:35 CORONAVIRUS COVID-19 PCR PHL Stat
[2020-09-12 22:30] LABS: CARBON DIOXIDE,CO2 24.5 mmol/L (21.0-32.0); POTASSIUM,K 3.5 mmol/L (3.5-5.1)
--- NOTE | 2020-09-12 22:42 | CR ---
Indication: Left hip pain after fall Technique: Three views, 4 films Comparison: Left hip 10/13/2019 Findings: Status post bilateral total hip replacement. No dislocation. No evidence of periprosthetic fracture. Atherosclerotic calcification. Multiple phleboliths in the pelvis. Status post L4-5 posterior fusion. Dictated by Robert Crawford MD @ Sep 12 2020 10:39PM Signed by Dr. Robert Crawford @ Sep 12 2020 10:41PM
== END 2020-09-13 00:20 | disposition home or self-care (01) ==
LOC: MW.ED 21:41
DX: S70.02XA Contusion of left hip, initial encounter (principal); U07.1 COVID-19; I10 Essential (primary) hypertension; J44.9 Chronic obstructive pulmonary disease, unspecified; R53.1 Weakness; Z88.5 Allergy status to narcotic agent; Z79.899 Other long term (current) drug therapy; W19.XXXA Unspecified fall, initial encounter
CPT/HCPCS: 36415; 73502; 80053; 81001; 85025; 99285; A9270; J7040; U0002; 99283

== ENCOUNTER 2020-09-13 20:34 | Emergency (ER) | payer MEDICARE, OTHER ==
[2020-09-13] MEDS ORDERED: Sodium Chloride 0.9% 1,000 ML IV ONE ×2 (21:17→22:48)
[2020-09-13] MEDS ORDERED: Sodium Chloride 0.9% 2.5 ML Syringe FLUSH PRN (21:17)
[2020-09-13] MEDS ORDERED: Sodium Chloride 0.9% 10 ML Syringe FLUSH PRN (21:17)
[2020-09-13 22:06] LABS: BLOOD UREA NITROGEN,BUN 24 mg/dL (7.0-18.0); CARBON DIOXIDE,CO2 25.9 mmol/L (21.0-32.0); CHLORIDE,CL 103 mmol/L (98-107); GLUCOSE RANDOM 83 mg/dL (74-106); POTASSIUM,K 4.1 mmol/L (3.5-5.1); SODIUM,NA 138 mmol/L (136-145)
[2020-09-13] MEDS ORDERED: Aspirin 81 MG Tab.Chew PO ONE (22:11)
[2020-09-13] MEDS ORDERED: Heparin Sodium 5,000 Units/ML Vial IVPUSH ONE (22:13)
[2020-09-13] MEDS ORDERED: Heparin Sod,Pork In 0.45% Nacl 25,000 UNIT/500 ML IV.SOLN IV SCH (22:30)
[2020-09-13] MEDS ORDERED: Acetaminophen 325 MG Tab PO ONE (22:38)
[2020-09-13] MEDS ORDERED: cefTRIAXone 1 GM in Premix Bag 1 BAG IV ONE (22:48)
[2020-09-13] MEDS ORDERED: Dexamethasone 10 MG/ML SDV IVPUSH ONE (22:48)
--- NOTE | 2020-09-13 22:49 | CR ---
Indication: COVID-19 Technique: Chest 1 view Comparison: None Findings/Impression: Cardiomegaly. Vague patchy opacities throughout the lungs concerning for infection. 2.3 cm round opacity overlying the left mid lung. Recommend chest CT for further evaluation. No effusion or pneumothorax. Osteopenia. Mild dextroscoliosis. Dictated by Natalia Boss MD @ Sep 13 2020 10:46PM Signed by Dr. Natalia Boss @ Sep 13 2020 10:46PM
--- NOTE | 2020-09-13 22:51 | CT ---
INDICATION: Fall. TECHNIQUE: CT scan of the brain was performed without contrast. COMPARISON: Report for CT scan of the brain September 2019. Comparison images are not currently available. FINDINGS: Extra-axial spaces: Mildly prominent. No extra-axial hemorrhage. Ventricles: At the right optic foramina of [place] there is very small hyper attenuating rounded structure measuring 6 millimeters. Mildly prominent ventricles. No midline shift. Brain: No intra-axial hemorrhage. No intracranial mass. Diffuse decreased attenuation in the periventricular white matter. 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 Bony calvarium: No significant abnormalities. IMPRESSION: 1. No hemorrhage or intracranial acute radiographic abnormality. 2. Tiny hyper attenuating focus in the right foramina of [place] and anterior 3rd ventricle. This could represent an intraventricular colloid cyst. Uncertain if this was present on the prior exam images are not available. Consider further evaluation with MRI of the brain. 3. Chronic changes suggesting cerebral volume loss and probable chronic ischemic microvascular decreased attenuation in the central white matter. Please note that all CT scans at this facility use dose modulation, iterative reconstruction, and/or weight-based dosing when appropriate to reduce radiation dose to as low as reasonably achievable. Dictated by Dwayne Sellers MD @ Sep 13 2020 10:50PM Signed by Dr. Dwayne Sellers @ Sep 13 2020 10:50PM
[2020-09-13] MEDS ORDERED: Azithromycin 500 MG in Sodium Chloride 0.9% 250 ML IV SCH (23:00)
--- NOTE | 2020-09-13 23:04 | EDM.PDOC ---
ED HPI GENERAL MEDICAL PROBLEM - General Chief Complaint: General Stated Complaint: FELL Time Seen by Provider: 09/13/20 20:38 - History of Present Illness INITIAL COMMENTS - FREE TEXT/NARRATIVE: HISTORY AND PHYSICAL: History of present illness: This is an 84-year-old female who presents ER today secondary to being found on the floor by her granddaughter and had noted that the patient had lost control of her bowel function. Patient was seen in the ER yesterday secondary to a fall and had a normal work-up. Patient's work-up yesterday was only significant for being positive for coronavirus. Patient's son who lives with her was just seen in the ER as well and was treated for positive coronavirus. Patient was tested for coronavirus secondary to exposure but yesterday patient was asymptomatic in the ED. In the ER today, patient reports that she recalls falling but is not having any complaints of pain to her lower or upper extremities. Patient reports that she thinks she may have hit her head but had no loss of consciousness. Patient denies any neck pain. Patient reports that she has chronic pain to her mid thorax and lower back which is unchanged from the past. Patient reports no new pain to her back since the fall. Patient denies any recent fevers, shakes, chills, nausea, vomiting, diarrhea, dysuria, frequency, urgency, chest pain, shortness of breath. Patient reports that she does have a history of COPD and she does still smoke. Patient reports that she does have oxygen at home and she utilizes it only as needed whenever she is exerting herself and feels short of breath. Patient reports that in general she does not generally need any oxygen. Patient reports that she generally lives alone during the day but in the evening her son comes and stays with her at night to assist her. Patient is denying any chest discomfort or pressure. Patient has any pain rating to her jaw or back. Patient denies any diaphoresis. Although the patient is awake alert and appears to be oriented to person and place and is generally appropriate, I question the patient's ability to provide a appropriate history especially in light of some inconsistencies with her current presentation symptoms/review of systems and the reports that are given by her granddaughter. Review of systems: As per history of present illness and below otherwise all systems reviewed and negative. Past medical history: As per history of present illness and as reviewed below otherwise noncontributory. Surgical history: As per history of present illness and as reviewed below otherwise noncontributory. Social history: No reported history of drug or alcohol abuse. Family history: As per history of present illness and as reviewed below otherwise noncontributory. Physical exam: Constitutional: Patient is oriented to person, place, and time. Appears well- developed and well-nourished. No distress. HEENT: Dry mucous membranes Head: Normocephalic and atraumatic, nontender to palpation, no bruising or soft tissue swelling Eyes: Right eye exhibits no discharge. Left eye exhibits no discharge. No scleral icterus Neck: Normal range of motion. No tracheal deviation present. Cardiovascular: Tachycardic rate and regular rhythm. Heart rate of 110 Pulmonary: Effort normal, no respiratory distress. No wheezing or rales. Slightly diminished breath sounds and rhonchi to the right lower base Abdominal: No distention, soft, nontender, no rebound or guarding, normal active bowel sounds Musculoskeletal: Normal range of motion. No tenderness palpation to her lower extremities, pelvis, upper extremities, shoulders Neurologic: Alert and oriented to person, place. Patient is aware that elections are coming up. Skin: [place], warm and dry. Psychiatric: Normal mood and affect. Behavior is normal. Judgment and thought content normal. Nursing note and vital signs have been reviewed Patient has no C-spine T-spine or L-spine tenderness to palpation. Patient has no left upper or right upper quadrant tenderness to palpation. Patient has no crepitus to palpation to the anterior chest wall. Patient is neurologically intact. Patient does not present with any signs or or symptoms that would be consistent with acute intracranial, intra-abdominal, intrathoracic, or long bone injury. All long bones have been palpated and range of motion been performed and there is no evidence of any acute pathology. Diagnostics: CT head reveals no acute pathology Chest x-ray reveals a vague patchy opacifications throughout the lungs concerning for infection. 2.3 cm round opacification overlying the left midlung field. Troponin level elevated at 0.3 Pulse ox 86% on room air Therapeutics: Aspirin 325 mg p.o. Assessment and plan: 1. Fall: This is an 84-year-old female with what appears to be a self-care deficit with multiple falls over the last couple days. This may be in part secondary to her recent diagnosis of coronavirus resulting in increased weakness. Patient is also hypoxic which might be contributing to the recent falls. Patient's work-up in the ED does not reveal any acute intracranial pathology. Patient's exam is nonconcerning for long bone or pelvic fractures. Patient will be given pain meds and be worked up further for cause of her multiple falls. Patient currently lives at home and her son comes and stays with her every evening. The issue of assisted living has been brought up with the patient and prior ER visits however the patient and family refusing this at this time. 2. Covid positive: Patient was diagnosed yesterday with coronavirus. Patient does have multiple comorbidities especially her longstanding COPD and O2 requiring. Patient's pulse ox on room air today is 86%. Patient reports that at home she does have oxygen that she utilizes as needed. On 2 L of O2 nasal cannula in the ED patient's pulse ox is 93%. Patient appears to be doing well with nasal cannula O2. Patient will be given Decadron 10 mg IV. Patient's lungs currently did not have any significant wheezing so I do not feel duo nebs will require treatment at this time. Patient's chest x-ray is concerning for possible infiltrate. Blood cultures x2 have been obtained as well as lactic acid. Patient be started empirically on Rocephin and Zithromax pending culture results. 3. Elevated troponin/non-STEMI. Patient currently is not complaining any chest discomfort. Patient reports intermittent episodes of shortness of breath. Patient's troponin in the ED is greater than 0.3. Patient's troponins in the recent past have all been 0 so this is a new issue for the patient. Patient's EKG reveals sinus tachycardia at 113 with occasional PVCs. No evidence of ST elevation MT. Patient is tachycardic here in the ED but does have a fever of 101.3. Patient will be given Tylenol patient's heart rate will be reassessed. Patient will need admission for further evaluation of her non-STEMI/elevated troponin. Patient will need to be transferred to a tertiary care hospital with cardiac capabilities as we do not have that here. Patient has been started on a heparin drip and bolus and also has been given 325 p.o. of aspirin. Critical Care: The high probability of sudden, clinically significant deterioration in the patient's condition required the highest level of my preparedness to intervene urgently. The services I provided to this patient were to treat and/or prevent clinically significant deterioration. Services included the following: chart data review, reviewing nursing notes and/or old charts, documentation time, automotive service consultant collaboration regarding findings and treatment options, medication orders and management, direct patient care, vital sign assessments and ordering, interpreting and reviewing diagnostic studies/lab tests. Aggregate critical care time includes only time during which I was engaged inwork directly related to the patient's care, as described above, whether at the bedside or elsewhere in the Emergency Department. It did not include time spent performing other reported procedures or the services of residents, students, nurses or physician assistants. Critical Care Time: 35 minutes Jaylyn alvarado contacted for transfer. Currently on diversion for all patients except trauma NSTEMI patients. Unable to accept transfer. Family requesting patient transfer to [place] secondary to family in the area. Case discussed with [facility] has agreed to accept patient for transfer for further cardiac evaluation. Case discussed with Dr. Amin who is agreed to assist us with accepting transfer. Definitive disposition and diagnosis as appropriate pending reevaluation and review of above. Back pain Pain Score (Numeric/FACES): 5 - Related Data Allergies Allergy/AdvReac Type Severity Reaction Status Date / Time morphine Allergy Vomiting Verified 09/13/20 20:53 Home Meds: Home Meds Metoprolol Succinate 50 mg PO DAILY 10/13/19 [History] lisinopriL [Lisinopril] 20 mg PO DAILY 10/13/19 [History] predniSONE [Prednisone] 40 mg PO DAILY 4 Days #8 tablet 10/13/19 [Rx] rOPINIRole [Requip] 2 mg PO DAILY 10/13/19 [History] traMADol [Ultram] 50 mg PO Q6H PRN #20 tab 10/13/19 [Rx] Azithromycin 250 mg PO DAILY 3 Days #3 tablet 10/15/19 [Rx] traMADol [Ultram] 50 mg PO QID PRN 4 Days #16 tablet 10/15/19 [Rx] Past Medical History - Past Health History Medical/Surgical History: Denies Medical/Surgical History HEENT 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: Impaired Vision, Other (See Below) Other HEENT History: wears glasses Cardiovascular 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: Hypertension, Other (See Below) Other Cardiovascular History: elevated heart rate Respiratory 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: Bronchitis, Recurrent, COPD, SOB Gastrointestinal 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: None Genitourinary 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: None LAW WRITER 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: Musculoskeletal 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: Osteoarthritis Neurological 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: None Endocrine/Metabolic 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: None Oncologic (Cancer) 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: None Dermatologic 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: None - Infectious Disease History Infectious Disease 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: [id number] Enterobac teriaceae, Measles, Shingles - Past Surgical History HEENT Surgical 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: None Cardiovascular Surgical 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: None Respiratory Surgical 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: None GI Surgical 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: Cholecystectomy, Colonoscopy, Polypectomy Female Surgical 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: Hysterectomy, Salpingo-Oophorectomy Endocrine Surgical 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: None Musculoskeletal Surgical 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: Hip Replacement, Knee Replacement Other Musculoskeletal Surgeries/Procedures:: bilateral hip replacement, left knee replacement Social & Family History - Family History Family Medical History: Noncontributory - Caffeine Use Caffeine Use: Reports: Coffee Caffeine Use Comment: 3-4 cups a day - Recreational Drug Use Recreational Drug Use: No ED ROS GENERAL - Review of Systems Review Of Systems: See Below ED EXAM, GENERAL - Physical Exam Exam: See Below #1 Interpretation EKG Interpretation Comments: EKG: Multiatrial tachycardia heart rate of 133 with multiple PVCs Nonspecific ST-T wave abnormalities Normal axis No evidence of ST elevation MT As interpreted by ER physician: Julia #2 Interpretation EKG Interpretation Comments: EKG: Normal sinus tachycardia heart rate of 113 with [address]-T wave abnormalities Normal axis No evidence of ST elevation MT As interpreted by ER physician: Julia Course - Vital Signs Last Recorded V/S: Last Vital Signs Temp 100.7 F H 09/13/20 23:55 Pulse 122 H 09/13/20 22:31 Resp 20 09/13/20 23:55 BP 103/49 L 09/13/20 23:55 Pulse Ox 93 L 09/13/20 23:55 - Orders/Labs/Meds Orders: Active Orders 24 hr Category Date Time Status EKG Documentation Completion [RC] AM Care 09/13/20 21:17 Active EKG Documentation Completion [RC] STAT Care 09/13/20 22:13 Active CULTURE BLOOD [BC] Stat Lab 09/13/20 22:55 Received CULTURE BLOOD [BC] Stat Lab 09/13/20 23:05 Results PTT,PARTIAL THROMBOPLSTIN TIME [COAG] Q6H Lab 09/14/20 03:30 Ordered PTT,PARTIAL THROMBOPLSTIN TIME [COAG] Q6 Lab 09/14/20 09:30 Ordered PTT,PARTIAL THROMBOPLSTIN TIME [COAG] Q6 Lab 09/14/20 15:30 Ordered PTT,PARTIAL THROMBOPLSTIN TIME [COAG] Q6 Lab 09/14/20 21:30 Ordered PTT,PARTIAL THROMBOPLSTIN TIME [COAG] Q Lab 09/15/20 03:30 Ordered PTT,PARTIAL THROMBOPLSTIN TIME [COAG] Q6 Lab 09/15/20 09:30 Ordered Azithromycin [Zithromax] 500 mg Med 09/13/20 23:00 Active Sodium Chloride 0.9% [Normal Saline (AdvBag)] 250 ml IV ONETIME Heparin Sod,Pork In 0.45% Nacl [Heparin-1/2Ns 25,000 Med 09/13/20 22:30 Active Units/500] 25,000 unit in 500 ml IV TITRATE Sodium Chloride 0.9% [Saline Flush] Med 09/13/20 21:17 Active 10 ml FLUSH ASDIRECTED PRN Sodium Chloride 0.9% [Saline Flush] Med 09/13/20 21:17 Active 2.5 ml FLUSH ASDIRECTED PRN Blood Culture x2 Reflex Set [OM.PC] Stat Oth 09/13/20 22:48 Ordered Saline Lock Insert [OM.PC] Stat Oth 09/13/20 21:17 Ordered Medication Orders Heparin Sodium/Sodium Chloride (Heparin-1/2ns 25,000 Units/500) 25,000 unit in 500 mls @ 10.886 mls/hr IV TITRATE MARTHA; Protocol Last Admin: 09/13/20 22:34 Dose: 12 units/kg/hr, 10.886 mls/hr Documented by: MIKHAIL Cosigned by: BURKE Azithromycin 500 mg/ Sodium (Chloride) 250 mls @ 250 mls/hr IV ONETIME MARTHA Last Admin: 09/13/20 23:46 Dose: 250 mls/hr Documented by: MIKHAIL Sodium Chloride (Saline Flush) 10 ml FLUSH ASDIRECTED PRN PRN Reason: Keep Vein Open Sodium Chloride (Saline Flush) 2.5 ml FLUSH ASDIRECTED PRN PRN Reason: Keep Vein Open Labs: Laboratory Tests 09/13/20 09/13/20 09/13/20 Range/Units 21:30 21:30 21:30 WBC 8.61 (4.0-11.0) K/uL RBC 4.82 (4.30-5.90) M/uL Hgb 14.3 (12.0-16.0) g/dL Hct 43.9 (36.0-46.0) % MCV 91.1 (80.0-98.0) fL MCH 29.7 (27.0-32.0) pg MCHC 32.6 (31.0-37.0) g/dL RDW Std Deviation 48.3 (28.0-62.0) fl RDW Coeff of Dorinda 14 (11.0-15.0) % Plt Count 80 L (150-400) K/uL MPV 13.00 H (7.40-12.00) fL Neut % (Auto) 92.1 H (48.0-80.0) % Lymph % (Auto) 2.1 L (16.0-40.0) % [place] % (Auto) 5.8 (0.0-15.0) % Eos % (Auto) 0.0 (0.0-7.0) % Baso % (Auto) 0.0 (0.0-1.5) % Neut # (Auto) 7.9 H (1.4-5.7) K/uL Lymph # (Auto) 0.2 L (0.6-2.4) K/uL [place] # (Auto) 0.5 (0.0-0.8) K/uL Eos # (Auto) 0.0 (0.0-0.7) K/uL Baso # (Auto) 0.0 (0.0-0.1) K/uL Nucleated RBC % 0.0 /100WBC Nucleated RBCs # 0 K/uL INR 1.25 APTT 31.8 H (18.6-31.3) SEC Lactate (0.20-2.00) mmol/L Sodium 138 (136-145) mmol/L Potassium 4.1 (3.5-5.1) mmol/L Chloride 103 (98-107) mmol/L Carbon Dioxide 25.9 (21.0-32.0) mmol/L BUN 24 H (7.0-18.0) mg/dL Creatinine 1.0 (0.6-1.0) mg/dL Est Cr Clr Drug Dosing TNP Estimated GFR (MDRD) 52.7 ml/min Glucose 83 (74-106) mg/dL Calcium 8.7 (8.5-10.1) mg/dL Total Bilirubin 1.1 H (0.2-1.0) mg/dL AST 150 H (15-37) IU/L ALT 36 (14-63) IU/L Alkaline Phosphatase 93 (46-116) U/L Troponin I 0.303 H* (0.000-0.056) ng/mL Total Protein 6.7 (6.4-8.2) g/dL Albumin 3.5 (3.4-5.0) g/dL Globulin 3.2 (2.6-4.0) g/dL Albumin/Globulin Ratio 1.1 (0.9-1.6) Urine Color Urine Appearance Urine pH (5.0-8.0) Ur Specific [place] (1.001-1.035) Urine Protein (NEGATIVE) mg/dL Urine Glucose (UA) (NEGATIVE) mg/dL Urine Ketones (NEGATIVE) mg/dL Urine Occult Blood (NEGATIVE) Urine Nitrite (NEGATIVE) Urine Bilirubin (NEGATIVE) Urine Urobilinogen (<2.0) EU/dL Ur Leukocyte Esterase (NEGATIVE) Urine RBC (0-2/HPF) Urine WBC (0-5/HPF) Ur Epithelial Cells (NONE-FEW) Amorphous Sediment (NEGATIVE) Urine Bacteria (NEGATIVE) Fine Granular Casts (NEGATIVE) 09/13/20 09/13/20 Range/Units 22:55 23:20 WBC (4.0-11.0) K/uL RBC (4.30-5.90) M/uL Hgb (12.0-16.0) g/dL Hct (36.0-46.0) % MCV (80.0-98.0) fL MCH (27.0-32.0) pg MCHC (31.0-37.0) g/dL RDW Std Deviation (28.0-62.0) fl RDW Coeff of Dorinda (11.0-15.0) % Plt Count (150-400) K/uL MPV (7.40-12.00) fL Neut % (Auto) (48.0-80.0) % Lymph % (Auto) (16.0-40.0) % [place] % (Auto) (0.0-15.0) % Eos % (Auto) (0.0-7.0) % Baso % (Auto) (0.0-1.5) % Neut # (Auto) (1.4-5.7) K/uL Lymph # (Auto) (0.6-2.4) K/uL [place] # (Auto) (0.0-0.8) K/uL Eos # (Auto) (0.0-0.7) K/uL Baso # (Auto) (0.0-0.1) K/uL Nucleated RBC % /100WBC Nucleated RBCs # K/uL INR APTT (18.6-31.3) SEC Lactate 1.3 (0.20-2.00) mmol/L Sodium (136-145) mmol/L Potassium (3.5-5.1) mmol/L Chloride (98-107) mmol/L Carbon Dioxide (21.0-32.0) mmol/L BUN (7.0-18.0) mg/dL Creatinine (0.6-1.0) mg/dL Est Cr Clr Drug Dosing Estimated GFR (MDRD) ml/min Glucose (74-106) mg/dL Calcium (8.5-10.1) mg/dL Total Bilirubin (0.2-1.0) mg/dL AST (15-37) IU/L ALT (14-63) IU/L Alkaline Phosphatase (46-116) U/L Troponin I (0.000-0.056) ng/mL Total Protein (6.4-8.2) g/dL Albumin (3.4-5.0) g/dL Globulin (2.6-4.0) g/dL Albumin/Globulin Ratio (0.9-1.6) Urine Color YELLOW Urine Appearance SLT CLOUDY Urine pH 5.5 (5.0-8.0) Ur Specific [place] >= 1.030 (1.001-1.035) Urine Protein 30 H (NEGATIVE) mg/dL Urine Glucose (UA) NEGATIVE (NEGATIVE) mg/dL Urine Ketones 15 H (NEGATIVE) mg/dL Urine Occult Blood LARGE H (NEGATIVE) Urine Nitrite NEGATIVE (NEGATIVE) Urine Bilirubin NEGATIVE (NEGATIVE) Urine Urobilinogen 0.2 (<2.0) EU/dL Ur Leukocyte Esterase NEGATIVE (NEGATIVE) Urine RBC 0-2 (0-2/HPF) Urine WBC 0-2 (0-5/HPF) Ur Epithelial Cells FEW (NONE-FEW) Amorphous Sediment LIGHT (NEGATIVE) Urine Bacteria FEW (NEGATIVE) Fine Granular Casts 0-2 (NEGATIVE) Meds: Medications Generic Name Dose Route Start Last Admin Trade Name Sharmin PRN Reason Stop Dose Admin Heparin Sodium/Sodium Chloride 25,000 unit in 500 mls @ 10.886 mls/hr 09/13/20 22:30 09/13/20 22:34 Heparin-1/2ns 25,000 Units/500 IV 12 units/kg/hr TITRATE MARTHA 10.886 mls/hr Administration Protocol 12 UNITS/KG/HR Azithromycin 500 mg/ Sodium 250 mls @ 250 mls/hr 09/13/20 23:00 09/13/20 23:4 6 Chloride IV 250 mls/hr ONETIME MARTHA Administration Sodium Chloride 10 ml 09/13/20 21:17 Saline Flush FLUSH ASDIRECTED PRN Keep Vein Open Sodium Chloride 2.5 ml 09/13/20 21:17 Saline Flush FLUSH ASDIRECTED PRN Keep Vein Open Discontinued Medications Generic Name Dose Route Start Last Admin Trade Name Sharmin PRN Reason Stop Dose Admin Acetaminophen 650 mg 09/13/20 22:38 09/13/20 22:48 Tylenol PO 09/13/20 22:39 650 mg NOW ONE Administration Aspirin 324 mg 09/13/20 22:11 09/13/20 22:32 Aspirin PO 09/13/20 22:12 324 mg ONETIME ONE Administration Dexamethasone 10 mg 09/13/20 22:48 09/13/20 23:10 Dexamethasone IVPUSH 09/13/20 22:49 10 mg ONETIME ONE Administration Heparin Sodium (Porcine) 2,700 units 09/13/20 22:13 09/13/20 22:33 Heparin Sodium IVPUSH 09/13/20 22:14 2,700 units BOLUS ONE Administration Protocol Sodium Chloride 1,000 mls @ 999 mls/hr 09/13/20 21:17 09/13/20 21:32 Normal Saline IV 09/13/20 22:17 999 mls/hr .Bolus ONE Administration Sodium Chloride 1,000 mls @ 999 mls/hr 09/13/20 22:48 09/13/20 23:00 Normal Saline IV 09/13/20 23:48 999 mls/hr .Bolus ONE Administration Ceftriaxone Sodium/Dextrose 1 50 mls @ 100 mls/hr 09/13/20 22:48 09/13/20 23:09 gm/ Premix IV 09/13/20 23:17 100 mls/hr ONETIME ONE Administration Departure - Departure Time of Disposition: 00:45 Disposition: DC/Tfer to [facility] 02 Clinical Impression: Non-STEMI (non-ST elevated myocardial infarction), Hypoxia, 2019 novel coronavirus detected, Fever COPD (chronic obstructive pulmonary disease) Qualifiers: COPD type: emphysema - Discharge Information Referrals: Charlie Sepulveda MD [Primary Care Provider] - Forms: ED Department Discharge Sepsis Event Note (ED) - Evaluation Sepsis Screening Result: No Definite Risk - Focused Exam Vital Signs: Vital Signs Temp Temp Pulse Resp BP Pulse Ox 09/13/20 23:55 100.7 F H 20 103/49 L 93 L 09/13/20 22:31 101.1 F H 122 H 22 H 142/95 H 93 L 09/13/20 21:39 102 H 20 147/75 H 93 L 09/13/20 20:54 99.2 F 111 H 18 157/66 H 87 L - My Orders Last 24 Hours: My Active Orders 09/13/20 21:17 EKG Documentation Completion [RC] AM Sodium Chloride 0.9% [Saline Flush] 10 ml FLUSH ASDIRECTED PRN Sodium Chloride 0.9% [Saline Flush] 2.5 ml FLUSH ASDIRECTED PRN Saline Lock Insert [OM.PC] Stat 09/13/20 22:13 EKG Documentation Completion [RC] STAT 09/13/20 22:30 Heparin Sod,Pork In 0.45% Nacl [Heparin-1/2Ns 25,000 Units/500] 25,000 unit in 500 ml IV TITRATE 09/13/20 22:48 Blood Culture x2 Reflex Set [OM.PC] Stat 09/13/20 22:55 CULTURE BLOOD [BC] Stat 09/13/20 23:00 Azithromycin [Zithromax] 500 mg Sodium Chloride 0.9% [Normal Saline (AdvBag)] 250 ml IV ONETIME 09/13/20 23:05 CULTURE BLOOD [BC] Stat 09/14/20 03:30 PTT,PARTIAL THROMBOPLSTIN TIME [COAG] Q6H 09/14/20 09:30 PTT,PARTIAL THROMBOPLSTIN TIME [COAG] Q6H 09/14/20 15:30 PTT,PARTIAL THROMBOPLSTIN TIME [COAG] Q6H 09/14/20 21:30 PTT,PARTIAL THROMBOPLSTIN TIME [COAG] Q6H 09/15/20 03:30 PTT,PARTIAL THROMBOPLSTIN TIME [COAG] Q6H 09/15/20 09:30 PTT,PARTIAL THROMBOPLSTIN TIME [COAG] Q6H - Assessment/Plan Last 24 Hours: My Active Orders 09/13/20 21:17 EKG Documentation Completion [RC] AM Sodium Chloride 0.9% [Saline Flush] 10 ml FLUSH ASDIRECTED PRN Sodium Chloride 0.9% [Saline Flush] 2.5 ml FLUSH ASDIRECTED PRN Saline Lock Insert [OM.PC] Stat 09/13/20 22:13 EKG Documentation Completion [RC] STAT 09/13/20 22:30 Heparin Sod,Pork In 0.45% Nacl [Heparin-1/2Ns 25,000 Units/500] 25,000 unit in 500 ml IV TITRATE 09/13/20 22:48 Blood Culture x2 Reflex Set [OM.PC] Stat 09/13/20 22:55 CULTURE BLOOD [BC] Stat 09/13/20 23:00 Azithromycin [Zithromax] 500 mg Sodium Chloride 0.9% [Normal Saline (AdvBag)] 250 ml IV ONETIME 09/13/20 23:05 CULTURE BLOOD [BC] Stat 09/14/20 03:30 PTT,PARTIAL THROMBOPLSTIN TIME [COAG] Q6H 09/14/20 09:30 PTT,PARTIAL THROMBOPLSTIN TIME [COAG] Q6H 09/14/20 15:30 PTT,PARTIAL THROMBOPLSTIN TIME [COAG] Q6H 09/14/20 21:30 PTT,PARTIAL THROMBOPLSTIN TIME [COAG] Q6H 09/15/20 03:30 PTT,PARTIAL THROMBOPLSTIN TIME [COAG] Q6H 09/15/20 09:30 PTT,PARTIAL THROMBOPLSTIN TIME [COAG] Q6H
== END 2020-09-14 02:06 ==
LOC: MW.ED 20:34
DX: I21.4 Non-ST elevation (NSTEMI) myocardial infarction (principal); U07.1 COVID-19; J44.9 Chronic obstructive pulmonary disease, unspecified; R09.02 Hypoxemia; R77.8 Other specified abnormalities of plasma proteins; I10 Essential (primary) hypertension; Z88.5 Allergy status to narcotic agent; Z79.899 Other long term (current) drug therapy; W19.XXXA Unspecified fall, initial encounter
CPT/HCPCS: 36415; 70450; 71045; 80053; 81001; 83605; 84484; 85025; 85610; 85730; 87040; 93005; 96361; 96365; 96366; 96368; 96375; 99285; A9270; J0456; J0696; J1100; J1644; J7030; J7050; 99291